=== PATIENT | male | born 1940 | race Caucasian/White ===

== ENCOUNTER → 2019-03-23 14:15 | Outpatient (BNVA) | payer MEDICARE, OTHER, SELFPAY | PROVIDERS: Family Provider Family Medicine; PCP Family Medicine; Visit Provider Urology | DX: R97.20 Elevated prostate specific antigen [PSA] (principal) | CPT/HCPCS: 84153 ==

== ENCOUNTER → 2019-03-30 08:05 | Outpatient (BNVA) | payer MEDICARE, OTHER, SELFPAY | PROVIDERS: Family Provider Family Medicine; PCP Family Medicine; Visit Provider Urology | DX: N20.9 Urinary calculus, unspecified (principal); N39.9 Disorder of urinary system, unspecified | CPT/HCPCS: 81001 ==

== ENCOUNTER 2019-04-15 07:37 | Day surgery (SDC) | payer MEDICARE, OTHER, SELFPAY ==
[2019-04-14 13:24] VITALS: BMI 24.3
[2019-04-15 08:36] VITALS: BP 130/91; PULSE 102; RESP 20; TEMP 36.7; O2SAT 96
[2019-04-15] MEDS: sodium chloride 0.9% 1,000 ML 30 ML (08:48)
--- NOTE | 2019-04-15 08:50 | ANES.PREANE2 ---
Pre-Anesthetic Assessment Pre-Anesthetic Assessment: Height/Weight: Height 1.75 m Weight 74.843 kg Temp Pulse Resp BP Pulse Ox 98.1 F 102 H 20 H 130/91 96 04/15/19 08:36 04/15/19 08:36 04/15/19 08:36 04/15/19 08:36 04/15/19 08:36 Proposed Procedure: Operation Date: 04/15/19 09:30 Proposed Procedures p Colonoscopy(Not Applicable) - Patricio Mobley MD Was Beta Kelly taken within 24 hours: Yes Last intake: Intake Last Liquid Date 04/14/19 Last Liquid Time 20:00 Last Intake: 20:00 Social: Social History: No alcohol and No tobacco Exam: Pre-Anes Outpt Exam: alert, oriented x 3, clear to auscultation bilaterally and regular rate & rhythm Airway: Submandibular: WNL Cervical ROM: WNL MP: 1 Dentition: False (upper implants lower) Pulmonary: Pulmonary: None reported CV/HEM: CV/HEM: HTN : : None reported Comments: hx [place] Hepatic: Hepatic: None reported GI: GI: None reported Metabolic: Metabolic: None reported Musc/skel: Musc/skel: RA Neuropsych: Neuropsych: None reported Anesthetic Plan: ASA status: 3 Anesthesia: Anesthesia Evaluation and MAC Risk of > 500 ml blood loss (7ml/kg in children): No PFSH Anesthesia PFSH: Medical History Diverticulosis Elevated PSA Chronically elevated PSA with normal feeling prostate. Elected conservative observation over biopsy due to age and perceived low risk. History of left inguinal hernia Rheumatoid arthritis Status post extracorporeal shock wave therapy Urolithiasis Surgical History History of hernia surgery History of oral surgery Status post surgery of both feet Family History Father , at age 58-[place] No problems noted. Mother Eye disorder Denies family history of Anesthesia complication Bleeding disorder Social History Smoking and tobacco status: former smoker Alcohol intake: never Marital status: Current occupational status: retired History of recent travel: No Data Anesthesia Cardiac Studies: No Data to Display
--- NOTE | 2019-04-15 09:03 | P.HPUD_ITS ---
Surgery/Procedure H&P Update DATE OF PROCEDURE: April 15, 2019 DATE H&P PERFORMED: 04/06/19 H&P UPDATE INFORMATION: I have reviewed H&P completed within last 30 days, I have examined patient prior to procedure, Changes to prior documentation as noted here (Patient reports change in bowel habits constipation alternating with diarrhea) and H&P is in [facility] EMR on date indicated CHANGES TO PREVIOUS DOCUMENTATION: Alternating bowel habits PREOP DIAGNOSIS: History of diarrhea and constipation PRIMARY INDICATION FOR PROCEDURE: The same PLANNED PROCEDURE: Operation Date: 04/15/19 09:30 Proposed Procedures p Colonoscopy(Not Applicable) - Patricio Mobley MD
[2019-04-15 10:00] VITALS: BP 111/68; PULSE 72; RESP 16; TEMP 36.6; O2SAT 97
--- NOTE | 2019-04-15 10:01 | ANE.PACU2 ---
 Inpatient post-anesthesia follow up: Airway intact: Yes Vital signs: Temperature 98 F Pulse Rate 72 Respiratory Rate 16 Blood Pressure 111/68 Pulse Oximetry 97 Oxygen Delivery Me thod Nasal Cannula Oxygen Flow Rate 3 Fraction of Inspir ed Oxygen Hydration adequate: Yes Nausea and vomiting: No Pain level: 1 Mental status: Baseline
[2019-04-15 10:19] VITALS: BP 135/79; PULSE 67; RESP 18; O2SAT 96
== END 2019-04-15 10:27 | disposition home or self-care (01) ==
PROVIDERS: Family Provider Family Medicine; PCP Family Medicine; Visit Provider Surgery
PROC: 0DJD8ZZ Inspection of Lower Intestinal Tract, Via Natural or Artificial Opening Endoscopic (ICD-10-PCS; CPT 45378; principal; 2019-04-15 09:30)
DX: R19.7 Diarrhea, unspecified (principal); K59.00 Constipation, unspecified; K57.30 Diverticulosis of large intestine without perforation or abscess without bleeding; I10 Essential (primary) hypertension; M06.9 Rheumatoid arthritis, unspecified; Z87.891 Personal history of nicotine dependence
CPT/HCPCS: 12345; 45378; 82274; 83630; 87177; 87209; 87493; 87505; J2704; J7030

== ENCOUNTER 2019-04-27 08:41 | Outpatient (CLI) | payer MEDICARE, OTHER, SELFPAY ==
[2019-04-27 09:20] VITALS: BP 128/68; PULSE 88; RESP 16; TEMP 36.6
[2019-04-27] MEDS: diphenhydrAMINE 50 mg/mL SDV 1mL 25 MG IVP (10:07)
[2019-04-27] MEDS: acetaminophen 325 mg Tablet 975 MG PO (10:07)
[2019-04-27] MEDS: rituximab 1,000 MG in sodium chloride 0.9% 250 ML, primary tubing onc 1 EACH 70 MG IV (10:07)
[2019-04-27 14:43] VITALS: BP 128/76; PULSE 60; RESP 16; TEMP 36.4; O2SAT 98
--- NOTE | 2019-04-27 14:48 | PC.NURSE ---
1430 Infusion complete. NS Flush 10ml. IV DC'd 24g cath intact. Pressure dressing applied. Appt made for a follow up appt.
== END 2019-04-27 08:42 | disposition home or self-care (01) ==
LOC: RHEOACUTE 08:42
PROVIDERS: Family Provider Family Medicine; PCP Family Medicine; Visit Provider Internal Medicine Rheumatology
DX: M05.79 Rheumatoid arthritis with rheumatoid factor of multiple sites without organ or systems involvement (principal); Z79.899 Other long term (current) drug therapy; Z11.59 Encounter for screening for other viral diseases; Z72.89 Other problems related to lifestyle
CPT/HCPCS: 36415; 80076; 82565; 85025; 86480; 86704; 86803; 87340; 96365; 96366; 96374; 96375; J1200; J2930; J7050; J9312

== ENCOUNTER → 2019-04-27 08:51 | Outpatient (BNVA) | payer MEDICARE, OTHER, SELFPAY | PROVIDERS: Family Provider Family Medicine; PCP Family Medicine | DX: M05.79 Rheumatoid arthritis with rheumatoid factor of multiple sites without organ or systems involvement (principal); Z79.899 Other long term (current) drug therapy | CPT/HCPCS: 85025 ==

== ENCOUNTER → 2019-07-23 10:42 | Outpatient (BNVA) | payer MEDICARE, OTHER, SELFPAY | PROVIDERS: Family Provider Family Medicine; PCP Family Medicine; Visit Provider Internal Medicine Rheumatology | DX: M05.9 Rheumatoid arthritis with rheumatoid factor, unspecified (principal); Z85.72 Personal history of non-Hodgkin lymphomas; Z79.899 Other long term (current) drug therapy; M16.0 Bilateral primary osteoarthritis of hip | CPT/HCPCS: 36415; 80076; 82565; 85025; 85651; 86140; 99214 ==

== ENCOUNTER → 2019-09-21 11:53 | Outpatient (BNVA) | payer MEDICARE, OTHER, SELFPAY | PROVIDERS: Family Provider Family Medicine; PCP Family Medicine; Visit Provider Urology | DX: R97.20 Elevated prostate specific antigen [PSA] (principal) | CPT/HCPCS: 84153 ==

== ENCOUNTER → 2019-09-28 08:55 | Outpatient (BNVA) | payer MEDICARE, OTHER, SELFPAY | PROVIDERS: Family Provider Family Medicine; PCP Family Medicine; Visit Provider Urology | DX: R97.20 Elevated prostate specific antigen [PSA] (principal); N20.9 Urinary calculus, unspecified | CPT/HCPCS: 81001 ==

== ENCOUNTER → 2019-10-29 10:54 | Outpatient (BNVA) | payer MEDICARE, OTHER, SELFPAY | PROVIDERS: Family Provider Family Medicine; PCP Family Medicine; Visit Provider Internal Medicine Rheumatology | DX: M05.9 Rheumatoid arthritis with rheumatoid factor, unspecified (principal); Z79.899 Other long term (current) drug therapy; M16.0 Bilateral primary osteoarthritis of hip; M54.2 Cervicalgia | CPT/HCPCS: 99213 ==

== ENCOUNTER 2020-03-09 17:30 | Emergency (ER) | payer MEDICARE, OTHER, SELFPAY ==
--- NOTE | 2020-03-09 18:12 | PC.NURSE ---
computer technical specialist at bedside
--- NOTE | 2020-03-09 18:25 | ECG_ITS ---
[facility] Test Date: 2020-03-09 Pat Name: Rafiq Crystal Department: Room: Gender: Male Banking Consultant: : 1940 Requested By: Tamanna Hoffman Order Number: [id number] MD: Chris Her M.D. Measurements Intervals [place] Rate: 68 P: 58 VT: 190 QRS: -14 QRSD: 104 T: 47 QT: 401 QTc: 429 Interpretive Statements SINUS RHYTHM INCOMPLETE RIGHT BUNDLE BRANCH BLOCK [90+ ms QRS DURATION, TERMINAL R IN V1/V2, 40+ ms S IN I/aVL/V4/V5/V6] Compared to ECG 02/27/2014 23:28:12 Incomplete right bundle-branch block now present Sinus tachycardia no longer present Left anterior fascicular block no longer present Electronically Signed On 03-09-2020 18:43:19 FRUIT INSPECTOR by Chris Her M.D. [id number]
--- NOTE | 2020-03-09 18:25 | XR_ITS ---
WS: [id number] Portable AP upright chest, 03/09/2020 Clinical Data: chest pain Comparison: Portable chest, 02/27/2014 Findings: No nodules, masses or effusions are seen. The heart is normal. The pulmonary vascularity is not increased. No pneumonia or pneumothorax is seen. The aortic arch and descending aorta are tortuo us. There is a slight dextroscoliosis of the lower thoracic spine. XR/XR chest 1V portable [id number] Impression: Atherosclerosis.
--- NOTE | 2020-03-09 18:26 | W.ED.ANXIETY ---
HPI - Anxiety General: Chief Complaint: Anxiety Stated Complaint: ANXIETY ISSUES Time Seen by Provider: 03/09/20 18:08 [facility] ED PFSH: Medical History Diverticulosis Elevated PSA Chronically elevated PSA with normal feeling prostate. Elected conservative observation over biopsy due to age and perceived low risk. Encounter for monitoring rituximab therapy High risk medication use History of left inguinal hernia Hx of lymphoma Immunization counseling Rheumatoid arthritis Seropositive rheumatoid arthritis Status post extracorporeal shock wave therapy Urolithiasis Surgical History History of hernia surgery History of oral surgery Status post surgery of both feet Family History Father , at age 58-[place] No problems noted. Mother Eye disorder Denies family history of Anesthesia complication Bleeding disorder Social History Smoking and tobacco status: former smoker Alcohol intake: never Marital status: Current occupational status: retired History of recent travel: No Discharge Plan Discharge Condition: Good Prescriptions: No Action triamterene-hydrochlorothiazid 37.5-25 mg capsule 1 cap PO DAILY@0700 RF: 0 metoprolol succinate 25 mg tablet extended release 24 hr 25 mg PO DAILY@0700 RF: 0 lorazepam 1 mg tablet 1 mg PO DAILY PRN (Reason: Anxiety) RF: 0 mirtazapine 15 mg tablet 15 mg PO DAILY@2200 RF: 0 tamsulosin 0.4 mg capsule 0.4 mg PO DAILY@0700 RF: 0 Rituxan 10 mg/mL concentrate 10 mg IVP BUSINESS OFFICE REPRESENTATIVE RF: 0 diclofenac sodium 1 % gel 2 gm TOPICAL QID PRN (Reason: rheumatoid arthritis) Qty: 100 RF: 1 quetiapine 25 mg tablet 25 mg PO BEDTIME@2200 RF: 0 Multivitamin 50 Plus Tablet 1 tab PO DAILY@0700 RF: 0 fluoxetine 60 mg tablet 60 mg PO DAILY@0700 RF: 0 calcium 1 tab PO DAILY@0700 RF: 0 Coding Level of Care Code ED Gambling Floor Supervisor for Emily Adair
--- NOTE | 2020-03-09 18:26 | W.ED.PSYCH ---
Documented by User: ALINE Caraballo 03/10/20 01:43 HPI - Psych General: Chief Complaint: Psychiatric Symptoms Stated Complaint: ANXIETY ISSUES Time Seen by Provider: 03/09/20 18:08 Source: patient and family Limitations: no limitations History of Present Illness: HPI Narrative: Patient is a very nice 79-year-old male with a history of anxiety, depression, rheumatoid arthritis, and lymphoma currently in remission here with his for complaints of anxiety and suicidal ideations. Patient tells me he has suffered from anxiety for many many years. He tells me he treats his anxiety with lorazepam 1mg TID. He states overtime he has has felt like this medication is no longer working. When asked specifically what symptoms he gets when he feels anxious, he tells me will have chest pains, pain between his shoulder blades, pain in his left shoulder and left arm, tremors and stomach pains. Denies exertional symptoms. Patient tells me he has no cardiac history. He is not currently having any symptoms. He does state the lorazapam helps alleviate his symptoms. He tells me his anxiety has gotten so bad that he now feels suicidal. He has one previous suicide attempt 6 years ago by overdose. He denies homicidal ideations or hallucinations. He reports no previous work up but he has stress test on file from 08/2018: CONCLUSION: 1. No significant EKG changes with the LexiScan infusion 2. No LexiScan induced chest pain or cardiac arrhythmia 3. Normal blood pressure and heart rate response 4. Sestamibi/sestamibi perfusion scan pending; see separate report. Small sized perfusion abnormality of moderate severity of mid to apical inferolateral larsen. 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 2. Overall left ventricular systolic function is normal without regional wall motion abnormalities. 3. The left ventricular ejection fraction is normal with a value of 68%. 4. No significant coronary ischemia based on this study. 5. Scan indicates low risk for cardiac events. MD complaint: suicidal ideation and feels depressed Onset (ago): day(s) History of same: Yes Associated psychiatric symptoms: depression and suicidal ideation Associated symptoms: Reports depression and suicidal ideation; Deny auditory hallucinations, visual hallucinations or homicidal ideation Treatments prior to arrival: none If self harm: admits thoughts of self harm Review of Systems Const: Denies: fever(s), chills, body aches, fatigue or malaise Card: Denies: chest pain, palpitations, irregular heart rhythm, edema, swelling of feet/ankles, lightheadedness, syncope, pre-syncope, dyspnea on exertion, orthopnea or leg pain with exertion Resp: Denies: dyspnea, productive cough, hemoptysis or chest congestion GI: Denies: abdominal pain, nausea, vomiting or diarrhea Skin/Breast: Denies: rash Neuro: Denies: headache(s) Psych: Reports: anxiety, depression and suicidal ideation; Denies: visual hallucinations, auditory hallucinations or homicidal ideation PFSH ED PFSH: Medical History (Updated 03/09/20 @ 20:00 by ALINE Caraballo) Diverticulosis Elevated PSA Chronically elevated PSA with normal feeling prostate. Elected conservative observation over biopsy due to age and perceived low risk. Encounter for monitoring rituximab therapy High risk medication use History of left inguinal hernia Hx of lymphoma Immunization counseling Rheumatoid arthritis Seropositive rheumatoid arthritis Status post extracorporeal shock wave therapy Urolithiasis Surgical History History of hernia surgery History of oral surgery Status post surgery of both feet Family History Father , at age 58-[place] No problems noted. Mother Eye disorder Denies family history of Anesthesia complication Bleeding disorder Social History Smoking and tobacco status: former smoker Alcohol intake: never Marital status: Current occupational status: retired History of recent travel: No Physical Exam Const: COMMON NORMALS: no acute distress, average body habitus, patient oriented x3, no limitations, healthy appearing, alert and well nourished GENERAL APPEARANCE: cooperative and well kempt ORIENTATION/CONSCIOUSNESS: Yes awake, Yes oriented to person, Yes oriented to place and Yes oriented to time HENMT: COMMON NORMALS: normocephalic and atraumatic HEAD & SCALP: normocephalic and atraumatic Resp: COMMON NORMALS: normal respiratory effort and clear to auscultation bilaterally AUSCULTATION: clear to auscultation bilaterally Cardio: COMMON NORMALS: regular rate and regular rhythm RATE: regular rate RHYTHM: regular rhythm Neuro: [place] COMA SCALE: document GCS findings Posey coma scale eye opening: Spontaneous [place] coma scale verbal response: Orientated [place] coma scale motor response: Obey commands Posey coma scale total score: 15 COMMON NORMALS: patient oriented x3, CN's II-XII intact bilaterally and gait normal SENSORIUM/ORIENTATION: Yes alert, Yes oriented to person, Yes oriented to place and Yes oriented to time Psych: COMMON NORMALS: mental status grossly normal, Normal thought process present, cooperative, normal affect, speech normal, activity/motor behavior normal, denies hallucinations and denies homicidal ideation APPEARANCE: Yes grossly normal and Yes well kempt ATTITUDE: Yes calm ACTIVITY/MOTOR BEHAVIOR: Yes appropriate eye contact and No psychomotor agitation SPEECH: Yes normal speech MOOD & AFFECT: Yes euthymic mood THOUGHT PROCESS: Normal thought process present THOUGHT CONTENT: Yes Normal thought content present ATTENTION/CONCENTRATION: Yes attention grossly intact and Yes concentration grossly intact MEMORY/COGNITION: Yes memory grossly intact and Yes cognition grossly intact INSIGHT: Good insight present (Psych) JUDGEMENT: Good judgement present (Psych) Skin: COMMON NORMALS: no rashes or lesions noted GENERAL SKIN EXAM: no rashes or lesions noted MDM - Psych MDM Narrative: Medical decision making narrative: Patient with negative stress test in 2019. He has had these symptoms intermittently for years now according to him. He is currently asymptomatic. He has negative initial and repeat troponins. EKGs showing no acute changes. Patient is stable to be transferred to [facility] facility at this time. Lab Data: Labs: Lab Results 03/09/20 03/09/20 03/09/20 Range/Units 18:35 18:35 18:35 WBC 6.9 (4.0-10.0) 10^3/ uL RBC 4.74 (4.1-5.3) 10^6/u L Hgb 14.2 (11.7-16.6) g/dL Hct 42.1 (42.0-52.0) % MCV 88.8 (80-94) fL MCH 30.0 (28.0-34.0) pg MCHC 33.7 (30.0-36.0) g/dL RDW 12.1 (12.1-15.1) % Plt Count 197 (130-400) 10^3/c mm MPV 9.2 (7.4-10.4) fL Neut % (Auto) 72.4 % Lymph % (Auto) 17.2 % [place] % (Auto) 8.1 % Eos % (Auto) 1.6 % Baso % (Auto) 0.4 % Neut # (Auto) 5.00 (1.8-7.7) 10^3/u L Lymph # (Auto) 1.2 (0.8-4.8) 10^3/u L [place] # (Auto) 0.6 (0.2-0.9) 10^3/u L Eos # (Auto) 0.1 (0.0-0.8) 10^3/u L Baso # (Auto) 0.0 (0.0-0.1) 10^3/u L Nucleated RBC % (a uto) 0 % Nucleated RBCs # 0.0 /100WBC Sodium 138 (136-145) mmol/L Potassium 4.0 (3.5-5.1) mmol/L Chloride 102 (98-107) mmol/L Carbon Dioxide 27 (22-29) mmol/L Anion Gap 13.0 (5-19) BUN 22 (8-23) mg/dL Creatinine 1.2 (0.7-1.2) mg/dL GFR Calculation Not Reportable Glucose 124 H (65-115) mg/dL Calculated Osmolal ity 291 (285-295) mOsm/k g Calcium 9.7 (8.5-10.5) mg/dL Total Bilirubin 0.3 (0.15-1.2) mg/dL AST 18 (0-40) U/L ALT 12 (0-41) U/L Alkaline Phosphata se 115 (40-130) IU/L Troponin T Baselin e 11 (0-15) ng/L Troponin T [address] [place] (0-15) ng/L Delta Troponin T (0-10) ABS# Total Protein 7.1 (6.6-8.7) g/dL Albumin 4.2 (3.5-5.2) g/dL Globulin 2.9 (1.3-4.6) g/dL TSH (0.27-4.20) uIU/ mL Free T4 (0.82-1.77) ng/d L Urine Color (Yellow) Urine Appearance (CLEAR) Urine pH (5-7) Ur Specific Gravit y (1.005-1.030) Urine Protein (Negative) Urine Glucose (UA) (Normal) Urine Ketones (Negative) Urine Blood (Negative) Urine Nitrate (Negative) Urine Bilirubin (Negative) Urine Urobilinogen (Negative) mg/dL Ur Leukocyte Evelyn ase (Negative) Salicylates < 0.3 L (3-10) mg/dL Urine Opiates Scre en (Negative) ng/mL Acetaminophen < 5.0 L (10-30) ug/mL Ur Barbiturates Sc reen (Negative) ng/mL Ur Phencyclidine S crn (Negative) ng/mL Ur Amphetamines Sc reen (Negative) ng/mL U Benzodiazepines Scrn (Negative) ng/mL Urine Cocaine Scre en (Negative) ng/mL U Marijuana (THC) Screen (Negative) ng/mL Ethyl Alcohol < 10 (0-10) mg/dL SARS-CoV-2 Ag (Rap id) (Negative) 03/09/20 03/09/20 03/09/20 Range/Units 19:23 19:25 20:23 WBC (4.0-10.0) 10^3/ uL RBC (4.1-5.3) 10^6/u L Hgb (11.7-16.6) g/dL Hct (42.0-52.0) % MCV (80-94) fL MCH (28.0-34.0) pg MCHC (30.0-36.0) g/dL RDW (12.1-15.1) % Plt Count (130-400) 10^3/c mm MPV (7.4-10.4) fL Neut % (Auto) % Lymph % (Auto) % [place] % (Auto) % Eos % (Auto) % Baso % (Auto) % Neut # (Auto) (1.8-7.7) 10^3/u L Lymph # (Auto) (0.8-4.8) 10^3/u L [place] # (Auto) (0.2-0.9) 10^3/u L Eos # (Auto) (0.0-0.8) 10^3/u L Baso # (Auto) (0.0-0.1) 10^3/u L Nucleated RBC % (a uto) % Nucleated RBCs # /100WBC Sodium (136-145) mmol/L Potassium (3.5-5.1) mmol/L Chloride (98-107) mmol/L Carbon Dioxide (22-29) mmol/L Anion Gap (5-19) BUN (8-23) mg/dL Creatinine (0.7-1.2) mg/dL GFR Calculation Glucose (65-115) mg/dL Calculated Osmolal ity (285-295) mOsm/k g Calcium (8.5-10.5) mg/dL Total Bilirubin (0.15-1.2) mg/dL AST (0-40) U/L ALT (0-41) U/L Alkaline Phosphata se (40-130) IU/L Troponin T Baselin e (0-15) ng/L Troponin T [address] [place] (0-15) ng/L Delta Troponin T (0-10) ABS# Total Protein (6.6-8.7) g/dL Albumin (3.5-5.2) g/dL Globulin (1.3-4.6) g/dL TSH (0.27-4.20) uIU/ mL Free T4 (0.82-1.77) ng/d L Urine Color Yellow (Yellow) Urine Appearance Clear (CLEAR) Urine pH 6.0 (5-7) Ur Specific Gravit y 1.015 (1.005-1.030) Urine Protein Neg (Negative) Urine Glucose (UA) Norm (Normal) Urine Ketones Negative (Negative) Urine Blood Neg (Negative) Urine Nitrate Negative (Negative) Urine Bilirubin Neg (Negative) Urine Urobilinogen Norm (Negative) mg/dL Ur Leukocyte Evelyn ase Negative (Negative) Salicylates (3-10) mg/dL Urine Opiates Scre en Negative (Negative) ng/mL Acetaminophen (10-30) ug/mL Ur Barbiturates Sc reen Negative (Negative) ng/mL Ur Phencyclidine S crn Negative (Negative) ng/mL Ur Amphetamines Sc reen Negative (Negative) ng/mL U Benzodiazepines Scrn Positive H (Negative) ng/mL Urine Cocaine Scre en Negative (Negative) ng/mL U Marijuana (THC) Screen Negative (Negative) ng/mL Ethyl Alcohol (0-10) mg/dL SARS-CoV-2 Ag (Rap id) Negative (Negative) 03/09/20 03/09/20 Range/Units 21:29 21:29 WBC (4.0-10.0) 10^3/ uL RBC (4.1-5.3) 10^6/u L Hgb (11.7-16.6) g/dL Hct (42.0-52.0) % MCV (80-94) fL MCH (28.0-34.0) pg MCHC (30.0-36.0) g/dL RDW (12.1-15.1) % Plt Count (130-400) 10^3/c mm MPV (7.4-10.4) fL Neut % (Auto) % Lymph % (Auto) % [place] % (Auto) % Eos % (Auto) % Baso % (Auto) % Neut # (Auto) (1.8-7.7) 10^3/u L Lymph # (Auto) (0.8-4.8) 10^3/u L [place] # (Auto) (0.2-0.9) 10^3/u L Eos # (Auto) (0.0-0.8) 10^3/u L Baso # (Auto) (0.0-0.1) 10^3/u L Nucleated RBC % (a uto) % Nucleated RBCs # /100WBC Sodium (136-145) mmol/L Potassium (3.5-5.1) mmol/L Chloride (98-107) mmol/L Carbon Dioxide (22-29) mmol/L Anion Gap (5-19) BUN (8-23) mg/dL Creatinine (0.7-1.2) mg/dL GFR Calculation Glucose (65-115) mg/dL Calculated Osmolal ity (285-295) mOsm/k g Calcium (8.5-10.5) mg/dL Total Bilirubin (0.15-1.2) mg/dL AST (0-40) U/L ALT (0-41) U/L Alkaline Phosphata se (40-130) IU/L Troponin T Baselin e (0-15) ng/L Troponin T [address] [place] 12.77 (0-15) ng/L Delta Troponin T 1.77 (0-10) ABS# Total Protein (6.6-8.7) g/dL Albumin (3.5-5.2) g/dL Globulin (1.3-4.6) g/dL TSH 1.95 (0.27-4.20) uIU/ mL Free T4 1.26 (0.82-1.77) ng/d L Urine Color (Yellow) Urine Appearance (CLEAR) Urine pH (5-7) Ur Specific Gravit y (1.005-1.030) Urine Protein (Negative) Urine Glucose (UA) (Normal) Urine Ketones (Negative) Urine Blood (Negative) Urine Nitrate (Negative) Urine Bilirubin (Negative) Urine Urobilinogen (Negative) mg/dL Ur Leukocyte Evelyn ase (Negative) Salicylates (3-10) mg/dL Urine Opiates Scre en (Negative) ng/mL Acetaminophen (10-30) ug/mL Ur Barbiturates Sc reen (Negative) ng/mL Ur Phencyclidine S crn (Negative) ng/mL Ur Amphetamines Sc reen (Negative) ng/mL U Benzodiazepines Scrn (Negative) ng/mL Urine Cocaine Scre en (Negative) ng/mL U Marijuana (THC) Screen (Negative) ng/mL Ethyl Alcohol (0-10) mg/dL SARS-CoV-2 Ag (Rap id) (Negative) Discharge Plan Discharge Patient Disposition: Xfer Other Clinical Impression: Suicidal ideation, Anxiety Condition: Stable Referrals: Ezio Lay Jr, MD [Primary Care Provider] - Coding Level of Care Code ED Light Bulb Replacer for Chg Fwd Exam Detailed Documented by User: Cherry Freed MD 03/10/20 05:12 HPI - Psych General: Chief Complaint: Psychiatric Symptoms Stated Complaint: ANXIETY ISSUES Time Seen by Provider: 03/09/20 18:08 [facility] ED PFSH: Medical History (Updated 03/09/20 @ 20:00 by ALINE Caraballo) Diverticulosis Elevated PSA Chronically elevated PSA with normal feeling prostate. Elected conservative observation over biopsy due to age and perceived low risk. Encounter for monitoring rituximab therapy High risk medication use History of left inguinal hernia Hx of lymphoma Immunization counseling Rheumatoid arthritis Seropositive rheumatoid arthritis Status post extracorporeal shock wave therapy Urolithiasis Surgical History History of hernia surgery History of oral surgery Status post surgery of both feet Family History Father , at age 58-[place] No problems noted. Mother Eye disorder Denies family history of Anesthesia complication Bleeding disorder Social History Smoking and tobacco status: former smoker Alcohol intake: never Marital status: Current occupational status: retired History of recent travel: No MDM - Psych MDM Narrative: Medical decision making narrative: Rafiq presents here with suicidal ideations with a plan to shoot himself with a gun. I saw patient as well and I agree with the midlevel's history and exam. I placed patient under a 96-hour hold. Will seek placement. Lab Data: Labs: Lab Results 03/09/20 03/09/20 03/09/20 Range/Units 18:35 18:35 18:35 WBC 6.9 (4.0-10.0) 10^3/ uL RBC 4.74 (4.1-5.3) 10^6/u L Hgb 14.2 (11.7-16.6) g/dL Hct 42.1 (42.0-52.0) % MCV 88.8 (80-94) fL MCH 30.0 (28.0-34.0) pg MCHC 33.7 (30.0-36.0) g/dL RDW 12.1 (12.1-15.1) % Plt Count 197 (130-400) 10^3/c mm MPV 9.2 (7.4-10.4) fL Neut % (Auto) 72.4 % Lymph % (Auto) 17.2 % [place] % (Auto) 8.1 % Eos % (Auto) 1.6 % Baso % (Auto) 0.4 % Neut # (Auto) 5.00 (1.8-7.7) 10^3/u L Lymph # (Auto) 1.2 (0.8-4.8) 10^3/u L [place] # (Auto) 0.6 (0.2-0.9) 10^3/u L Eos # (Auto) 0.1 (0.0-0.8) 10^3/u L Baso # (Auto) 0.0 (0.0-0.1) 10^3/u L Nucleated RBC % (a uto) 0 % Nucleated RBCs # 0.0 /100WBC Sodium 138 (136-145) mmol/L Potassium 4.0 (3.5-5.1) mmol/L Chloride 102 (98-107) mmol/L Carbon Dioxide 27 (22-29) mmol/L Anion Gap 13.0 (5-19) BUN 22 (8-23) mg/dL Creatinine 1.2 (0.7-1.2) mg/dL GFR Calculation Not Reportable Glucose 124 H (65-115) mg/dL Calculated Osmolal ity 291 (285-295) mOsm/k g Calcium 9.7 (8.5-10.5) mg/dL Total Bilirubin 0.3 (0.15-1.2) mg/dL AST 18 (0-40) U/L ALT 12 (0-41) U/L Alkaline Phosphata se 115 (40-130) IU/L Troponin T Baselin e 11 (0-15) ng/L Troponin T [address] [place] (0-15) ng/L Delta Troponin T (0-10) ABS# Total Protein 7.1 (6.6-8.7) g/dL Albumin 4.2 (3.5-5.2) g/dL Globulin 2.9 (1.3-4.6) g/dL TSH (0.27-4.20) uIU/ mL Free T4 (0.82-1.77) ng/d L Urine Color (Yellow) Urine Appearance (CLEAR) Urine pH (5-7) Ur Specific Gravit y (1.005-1.030) Urine Protein (Negative) Urine Glucose (UA) (Normal) Urine Ketones (Negative) Urine Blood (Negative) Urine Nitrate (Negative) Urine Bilirubin (Negative) Urine Urobilinogen (Negative) mg/dL Ur Leukocyte Evelyn ase (Negative) Salicylates < 0.3 L (3-10) mg/dL Urine Opiates Scre en (Negative) ng/mL Acetaminophen < 5.0 L (10-30) ug/mL Ur Barbiturates Sc reen (Negative) ng/mL Ur Phencyclidine S crn (Negative) ng/mL Ur Amphetamines Sc reen (Negative) ng/mL U Benzodiazepines Scrn (Negative) ng/mL Urine Cocaine Scre en (Negative) ng/mL U Marijuana (THC) Screen (Negative) ng/mL Ethyl Alcohol < 10 (0-10) mg/dL SARS-CoV-2 Ag (Rap id) (Negative) 03/09/20 03/09/20 03/09/20 Range/Units 19:23 19:25 20:23 WBC (4.0-10.0) 10^3/ uL RBC (4.1-5.3) 10^6/u L Hgb (11.7-16.6) g/dL Hct (42.0-52.0) % MCV (80-94) fL MCH (28.0-34.0) pg MCHC (30.0-36.0) g/dL RDW (12.1-15.1) % Plt Count (130-400) 10^3/c mm MPV (7.4-10.4) fL Neut % (Auto) % Lymph % (Auto) % [place] % (Auto) % Eos % (Auto) % Baso % (Auto) % Neut # (Auto) (1.8-7.7) 10^3/u L Lymph # (Auto) (0.8-4.8) 10^3/u L [place] # (Auto) (0.2-0.9) 10^3/u L Eos # (Auto) (0.0-0.8) 10^3/u L Baso # (Auto) (0.0-0.1) 10^3/u L Nucleated RBC % (a uto) % Nucleated RBCs # /100WBC Sodium (136-145) mmol/L Potassium (3.5-5.1) mmol/L Chloride (98-107) mmol/L Carbon Dioxide (22-29) mmol/L Anion Gap (5-19) BUN (8-23) mg/dL Creatinine (0.7-1.2) mg/dL GFR Calculation Glucose (65-115) mg/dL Calculated Osmolal ity (285-295) mOsm/k g Calcium (8.5-10.5) mg/dL Total Bilirubin (0.15-1.2) mg/dL AST (0-40) U/L ALT (0-41) U/L Alkaline Phosphata se (40-130) IU/L Troponin T Baselin e (0-15) ng/L Troponin T [address] [place] (0-15) ng/L Delta Troponin T (0-10) ABS# Total Protein (6.6-8.7) g/dL Albumin (3.5-5.2) g/dL Globulin (1.3-4.6) g/dL TSH (0.27-4.20) uIU/ mL Free T4 (0.82-1.77) ng/d L Urine Color Yellow (Yellow) Urine Appearance Clear (CLEAR) Urine pH 6.0 (5-7) Ur Specific Gravit y 1.015 (1.005-1.030) Urine Protein Neg (Negative) Urine Glucose (UA) Norm (Normal) Urine Ketones Negative (Negative) Urine Blood Neg (Negative) Urine Nitrate Negative (Negative) Urine Bilirubin Neg (Negative) Urine Urobilinogen Norm (Negative) mg/dL Ur Leukocyte Evelyn ase Negative (Negative) Salicylates (3-10) mg/dL Urine Opiates Scre en Negative (Negative) ng/mL Acetaminophen (10-30) ug/mL Ur Barbiturates Sc reen Negative (Negative) ng/mL Ur Phencyclidine S crn Negative (Negative) ng/mL Ur Amphetamines Sc reen Negative (Negative) ng/mL U Benzodiazepines Scrn Positive H (Negative) ng/mL Urine Cocaine Scre en Negative (Negative) ng/mL U Marijuana (THC) Screen Negative (Negative) ng/mL Ethyl Alcohol (0-10) mg/dL SARS-CoV-2 Ag (Rap id) Negative (Negative) 03/09/20 03/09/20 Range/Units 21:29 21:29 WBC (4.0-10.0) 10^3/ uL RBC (4.1-5.3) 10^6/u L Hgb (11.7-16.6) g/dL Hct (42.0-52.0) % MCV (80-94) fL MCH (28.0-34.0) pg MCHC (30.0-36.0) g/dL RDW (12.1-15.1) % Plt Count (130-400) 10^3/c mm MPV (7.4-10.4) fL Neut % (Auto) % Lymph % (Auto) % [place] % (Auto) % Eos % (Auto) % Baso % (Auto) % Neut # (Auto) (1.8-7.7) 10^3/u L Lymph # (Auto) (0.8-4.8) 10^3/u L [place] # (Auto) (0.2-0.9) 10^3/u L Eos # (Auto) (0.0-0.8) 10^3/u L Baso # (Auto) (0.0-0.1) 10^3/u L Nucleated RBC % (a uto) % Nucleated RBCs # /100WBC Sodium (136-145) mmol/L Potassium (3.5-5.1) mmol/L Chloride (98-107) mmol/L Carbon Dioxide (22-29) mmol/L Anion Gap (5-19) BUN (8-23) mg/dL Creatinine (0.7-1.2) mg/dL GFR Calculation Glucose (65-115) mg/dL Calculated Osmolal ity (285-295) mOsm/k g Calcium (8.5-10.5) mg/dL Total Bilirubin (0.15-1.2) mg/dL AST (0-40) U/L ALT (0-41) U/L Alkaline Phosphata se (40-130) IU/L Troponin T Baselin e (0-15) ng/L Troponin T [address] [place] 12.77 (0-15) ng/L Delta Troponin T 1.77 (0-10) ABS# Total Protein (6.6-8.7) g/dL Albumin (3.5-5.2) g/dL Globulin (1.3-4.6) g/dL TSH 1.95 (0.27-4.20) uIU/ mL Free T4 1.26 (0.82-1.77) ng/d L Urine Color (Yellow) Urine Appearance (CLEAR) Urine pH (5-7) Ur Specific Gravit y (1.005-1.030) Urine Protein (Negative) Urine Glucose (UA) (Normal) Urine Ketones (Negative) Urine Blood (Negative) Urine Nitrate (Negative) Urine Bilirubin (Negative) Urine Urobilinogen (Negative) mg/dL Ur Leukocyte Evelyn ase (Negative) Salicylates (3-10) mg/dL Urine Opiates Scre en (Negative) ng/mL Acetaminophen (10-30) ug/mL Ur Barbiturates Sc reen (Negative) ng/mL Ur Phencyclidine S crn (Negative) ng/mL Ur Amphetamines Sc reen (Negative) ng/mL U Benzodiazepines Scrn (Negative) ng/mL Urine Cocaine Scre en (Negative) ng/mL U Marijuana (THC) Screen (Negative) ng/mL Ethyl Alcohol (0-10) mg/dL SARS-CoV-2 Ag (Rap id) (Negative) Discharge Plan Discharge Patient Disposition: Xfer Other Clinical Impression: Suicidal ideation, Anxiety Condition: Stable Referrals: Ezio Lay Jr, MD [Primary Care Provider] - Coding Level of Care Code ED Light Bulb Replacer for Winifredg Fwd Exam Detailed
[2020-03-09 18:40] VITALS: RESP 18
--- NOTE | 2020-03-09 18:42 | PC.NURSE ---
EKG done at 1840 and shown to VITO MIRELES
[2020-03-09 18:48] VITALS: BMI 25.8
[2020-03-09 18:55] VITALS: BP 128/88; PULSE 78; RESP 18; TEMP 36.7; O2SAT 97
[2020-03-09 19:02] LABS: Basophils % 0.4 %; Eosinophils # 0.1 10^3/uL (0.0-0.8); Eosinophils % 1.6 %; Hematocrit 42.1 % (42.0-52.0); Hemoglobin 14.2 g/dL (11.7-16.6); Lymphocytes # 1.2 10^3/uL (0.8-4.8); Lymphocytes % 17.2 %; Mean Corpuscular HGB Conc 33.7 g/dL (30.0-36.0); Mean Corpuscular Volume 88.8 fL (80-94); Mean Platelet Volume 9.2 fL (7.4-10.4); Monocytes # 0.6 10^3/uL (0.2-0.9); Monocytes % 8.1 %; Neutrophils % 72.4 %; Nucleated Red Blood Cells % 0 %; Platelet Count 197 10^3/cmm (130-400); Red Blood Count 4.74 10^6/uL (4.1-5.3); Red Cell Distribution Width 12.1 % (12.1-15.1); White Blood Count 6.9 10^3/uL (4.0-10.0)
[2020-03-09 19:18] LABS: Alanine Aminotransferase 12 U/L (0-41); Albumin Level 4.2 g/dL (3.5-5.2); Alkaline Phosphatase 115 IU/L (40-130); Aspartate Amino Transferase 18 U/L (0-40); Blood Urea Nitrogen 22 mg/dL (8-23); Calcium 9.7 mg/dL (8.5-10.5); Carbon Dioxide 27 mmol/L (22-29); Chloride 102 mmol/L (98-107); Globulin 2.9 g/dL (1.3-4.6); Glucose 124 mg/dL (65-115); Osmolality Calculated 291 mOsm/kg (285-295); Sodium 138 mmol/L (136-145); Total Bilirubin 0.3 mg/dL (0.15-1.2); Total Protein 7.1 g/dL (6.6-8.7)
[2020-03-09 19:19] LABS: Acetaminophen < 5.0 ug/mL (10-30); Alcohol Level < 10 mg/dL (0-10); Salicylate < 0.3 mg/dL (3-10)
[2020-03-09 19:20] LABS: Troponin(5th) Baseline 11 ng/L (0-15)
[2020-03-09 20:08] LABS: Amphetamines Screen Urine Negative (Negative); Barbiturates Screen Urine Negative (Negative); Benzodiazepines Screen Urine Positive (Negative); Cocaine Screen Urine Negative (Negative); Opiate Screen Urine Negative (Negative); PCP Screen Urine Negative (Negative); THC Screen Urine Negative (Negative)
[2020-03-09 20:20] LABS: Add Urine Microscopic? NO
--- NOTE | 2020-03-09 20:25 | ECG_ITS ---
[facility] Test Date: 2020-03-09 Pat Name: Rafiq Crystal Department: Room: Gender: Male Broom Builder: : 1940 Requested By: Tamanna Hoffman Order Number: [id number] MD: Chris Her M.D. Measurements Intervals [place] Rate: 70 P: 56 GA: 164 QRS: -22 QRSD: 106 T: 49 QT: 417 QTc: 451 Interpretive Statements SINUS RHYTHM BORDERLINE LEFT AXIS DEVIATION [QRS AXIS < -20] INCOMPLETE RIGHT BUNDLE BRANCH BLOCK [90+ ms QRS DURATION, TERMINAL R IN V1/V2, 40+ ms S IN I/aVL/V4/V5/V6] Compared to ECG 03/09/2020 18:37:13 No significant changes Electronically Signed On 03-10-2020 11:28:02 CLOTH COVERED HELMET PULLER by Chris Her M.D. [id number]
--- NOTE | 2020-03-09 20:29 | PC.NURSE ---
EKG done at 2024 and shown to ER doctor
[2020-03-09 20:34] LABS: Bilirubin Urine Neg (Negative); Blood Urine Neg (Negative); Glucose Urine UA Norm (Normal); Ketones Urine Negative (Negative); Leukocyte Esterase Urine Negative (Negative); Nitrate Urine Negative (Negative); Protein Urine Neg (Negative); Specific Gravity, Urine 1.015 (1.005-1.030); Urine Appearance Clear (CLEAR); Urine Color Yellow (Yellow); Urobilinogen Urine Norm (Negative)
[2020-03-09 21:02] LABS: SARS Covid-2 Antigen Negative (Negative)
[2020-03-09 22:02] LABS: Troponin 5 2HR 12.77 ng/L (0-15); Troponin 5 2HR Delta 1.77 ABS# (0-10)
--- NOTE | 2020-03-09 22:13 | PC.NURSE ---
[facility] called and this denied patient for admit at this time due to patient c/o angina.
[2020-03-09] MEDS: hyDROXYzine 25 mg Capsule 50 MG PO (22:34)
--- NOTE | 2020-03-10 01:17 | PC.NURSE ---
Call to [facility] to confirm they received fax from this facility, Josee confirms they have received all paperwork and states she is waiting to hear from the ER physician and she will call to let us know if he accepts.
--- NOTE | 2020-03-10 03:27 | PC.NURSE ---
[facility] will not see this pt, so they can not accept ot. We can find another facility or continue boarding him until their ED physician will evaluate pt
[2020-03-10 04:39] LABS: Free T4 Free Thyroxine 1.26 ng/dL (0.82-1.77); Thyroid Stimulating Hormone 1.95 uIU/mL (0.27-4.20)
[2020-03-10 06:43] VITALS: BP 168/90; PULSE 77; RESP 18; O2SAT 98
--- NOTE | 2020-03-10 06:51 | PC.NURSE ---
Received report assumed care. No changes noted from report. Resting in bed. Sitter at bedside. Waiting to call report to Bell at 0730.
--- NOTE | 2020-03-10 07:13 | PC.NURSE ---
Breakfast served. Needing morning meds
[2020-03-10] MEDS: fluoxetine 20 mg Capsule 40 MG PO (07:57)
[2020-03-10] MEDS: metoprolol succinate ER (24 HR) 25 mg Tablet PO (07:58)
[2020-03-10] MEDS: pantoprazole DR 40 mg Tablet PO (07:58)
--- NOTE | 2020-03-10 08:17 | PC.NURSE ---
Ate a full breakfast eaten. Morning meds given.
--- NOTE | 2020-03-10 08:18 | PC.NURSE ---
Sitter at bedside 1:1
[2020-03-10] MEDS: hydroCHLOROthiazide 25 mg Tablet PO (08:44)
[2020-03-10] MEDS: quetiapine 25 mg Tablet PO (09:06)
[2020-03-10 09:10] VITALS: BP 157/95; PULSE 88; RESP 16; TEMP 37; O2SAT 96
[2020-03-10 14:22] LABS: Coronavirus Test Green County Not Detected
--- NOTE | 2020-03-11 12:04 | PC.NURSE ---
Patient called to be notified of COVID results but no answer at this time and unable to leave message at this time.
--- NOTE | 2020-03-11 17:18 | PC.NURSE ---
[facility] notified of patients COVID results at this time.
== END 2020-03-10 09:38 | disposition other institution (70) ==
PROVIDERS: Physician Assistant; Emergency Provider Emergency Medicine; PCP Family Medicine
DX: F41.9 Anxiety disorder, unspecified (principal); R45.851 Suicidal ideations; Z85.72 Personal history of non-Hodgkin lymphomas; Z87.891 Personal history of nicotine dependence; Z79.899 Other long term (current) drug therapy
CPT/HCPCS: 12345; 36415; 71045; 80053; 80306; 80307; 81003; 84439; 84443; 84484; 85025; 87426; 87635; 93005; 99284; 99285

== ENCOUNTER 2020-03-20 14:05 | Inpatient (IN) | payer MEDICARE, OTHER, SELFPAY ==
[2020-03-20 14:06] VITALS: BP 116/76; PULSE 67; RESP 14; TEMP 36.4; O2SAT 96; BMI 27.3
--- NOTE | 2020-03-20 14:11 | ECG_ITS ---
[facility] Test Date: 2020-03-20 Pat Name: Rafiq Crystal Department: Room: Gender: Male House Coordinator: : 1940 Requested By: Tiffany Schwartz Order Number: [id number] MD: Chris eHr M.D. Measurements Intervals [place] Rate: 67 P: 55 WI: 194 QRS: -36 QRSD: 102 T: 32 QT: 434 QTc: 461 Interpretive Statements SINUS RHYTHM LEFT AXIS DEVIATION [QRS AXIS < -30] INCOMPLETE RIGHT BUNDLE BRANCH BLOCK [90+ ms QRS DURATION, TERMINAL R IN V1/V2, 40+ ms S IN I/aVL/V4/V5/V6] Compared to ECG 03/09/2020 20:23:47 No significant changes Electronically Signed On 03-20-2020 16:57:28 SAWMILLING OPERATOR by Chris Her M.D. [email or web address]
--- NOTE | 2020-03-20 14:21 | W.ED.AMS ---
HPI - Altered Mental Status General: Chief Complaint: Altered Mental Status Stated Complaint: AMS WITH FALL; LETHARGY Time Seen by Provider: 03/20/20 14:07 Source: family and old records reviewed Mode of arrival: ambulatory History of Present Illness: HPI narrative: 79-year-old male brought in by EMS with complaints of lethargy, somnolence, generalized weakness over the last 2 days. His states that yesterday his medications were changed, his Seroquel dose was increased to 50 mg twice daily and 200 mg at night. He was drowsy during the day yesterday, but was able to wake up this morning ate breakfast, but then has been sleeping most of the rest of the day, very difficult to arouse, seems confused and just wants to sleep. He will wake up and converse briefly. He has been on benzos chronically for anxiety, and they are trying to wean him down off of the lorazepam. Lexapro was also added 2 days ago. No fever. No complaints of headache or neck pain. Today when the was trying to help him ambulate, they both ended up falling and he did hit his head against a cupboard. MD complaint: altered mental status and confusion Review of Systems General: Reports: ROS unobtainable due to mental status PFSH ED PFSH: Medical History (Updated 03/18/20 @ 00:00 by ) Diverticulosis Elevated PSA Chronically elevated PSA with normal feeling prostate. Elected conservative observation over biopsy due to age and perceived low risk. Encounter for monitoring rituximab therapy High risk medication use History of left inguinal hernia Hx of lymphoma Immunization counseling Rheumatoid arthritis Seropositive rheumatoid arthritis Status post extracorporeal shock wave therapy Urolithiasis Surgical History History of hernia surgery History of oral surgery Status post surgery of both feet Family History Father , at age 58-[place] No problems noted. Mother Eye disorder Denies family history of Anesthesia complication Bleeding disorder Social History Smoking and tobacco status: former smoker Alcohol intake: never Marital status: Current occupational status: retired History of recent travel: No Physical Exam Const: COMMON NORMALS: average body habitus EXAM LIMITATIONS: altered mental status GENERAL APPEARANCE: well developed and lethargic ORIENTATION/CONSCIOUSNESS: Yes oriented to person, Yes confused, Yes patient obtunded and Yes lethargic; not oriented to time HENMT: COMMON NORMALS: normocephalic and atraumatic HEAD & SCALP: normocephalic, atraumatic and abrasion (Left scalp, scabbed. No active bleeding) FACE & SINUS: normal facial exam and face symmetric Eye: COMMON NORMALS: Equal, round and reactive pupils present, EOMs intact bilaterally, conjunctivae normal and no scleral icterus CONJUNCTIVA: Yes conjunctivae normal PUPIL: Yes Equal, round and reactive pupils present Neck/C-Spine: COMMON NORMALS: negative for no meningeal signs Lymph: LYMPHATIC: no lymphadenopathy noted and no lymphedema noted Chest: COMMONS NORMALS: normal inspection of the chest and normal palpation of entire chest wall Resp: COMMON NORMALS: normal respiratory effort, No retractions and No use of accessory muscles EFFORT & INSPECTION: No tachypneic and No respiratory distress Cardio: COMMON NORMALS: regular rate, regular rhythm, S1 normal heart sound present and S2 normal heart sound present RATE: regular rate RHYTHM: regular rhythm HEART SOUNDS: S1 normal heart sound present and S2 normal heart sound present GI: COMMON NORMALS: Normal to inspection, nondistended, normoactive bowel sounds present, Soft to palpation, non-tender, No hepatosplenomegaly present and no masses INSPECTION: Yes normal to inspection and Yes abdominal wall ecchymosis PALPATION: Yes Soft to palpation, No Tenderness to palpation present (GI), No Guarding due to palpation present (GI), No Rigid due to palpation and Yes No hepatosplenomegaly present Neuro: COMMON NORMALS: moves all extremities and no focal motor deficits SENSORIUM/ORIENTATION: Yes oriented to person, No oriented to time, Yes lethargic, Yes somnolent and Yes stuporous MENINGEAL SIGNS: No no meningeal signs and No nuccal rigidity CRANIAL NERVES: Yes pupillary reactivity/size GAIT: Yes Unable to assess gait MOTOR EXAM: no tremor noted, no asterixis and Motor fasciculations not present Skin: COMMON NORMALS: no rashes or lesions noted, no wounds, turgor normal, no jaundice, no petechiae and no mottling GENERAL SKIN EXAM: no rashes or lesions noted and turgor normal Course Vital Signs: Vital signs: Vital Signs Temperature 97.5 F L 03/20/20 14:06 Pulse Rate 59 L 03/20/20 19:53 Respiratory Rate 16 03/20/20 19:53 Blood Pressure 129/75 03/20/20 19:53 Pulse Oximetry 96 03/20/20 19:53 MDM - Altered Mental Status MDM Narrative: Medical decision making narrative: 79-year-old male with increased drowsiness, somnolence, confusion over the past 2 days. Onset of symptoms coincides with the increase of his Seroquel dose. EKG does not show any acute abnormalities. No significant changes compared to previous. CT head negative for any acute abnormalities. CBC and chemistry unremarkable. Urinalysis clear. Tox screen positive for benzos only. Even after being observed for 4+ hours in the ED, he was still very drowsy and unsafe to discharge home. Patient was signed out to Dr. Lovett who will await final test results and call hospitalist to request obs admissin. Medical Records: Attestation: I reviewed the patient's medical records. Lab Data: Attestation: I reviewed the patient's lab results. Labs: Lab Results 03/20/20 03/20/20 03/20/20 Range/Units 14:30 14:30 18:12 WBC 6.4 (4.0-10.0) 10^3/ uL RBC 4.30 (4.1-5.3) 10^6/u L Hgb 12.8 (11.7-16.6) g/dL Hct 39.2 L (42.0-52.0) % MCV 91.2 (80-94) fL MCH 29.8 (28.0-34.0) pg MCHC 32.7 (30.0-36.0) g/dL RDW 12.3 (12.1-15.1) % Plt Count 167 (130-400) 10^3/c mm MPV 9.2 (7.4-10.4) fL Neut % (Auto) 76.2 % Lymph % (Auto) 15.0 % [place] % (Auto) 5.6 % Eos % (Auto) 2.5 % Baso % (Auto) 0.5 % Neut # (Auto) 4.87 (1.8-7.7) 10^3/u L Lymph # (Auto) 1.0 (0.8-4.8) 10^3/u L [place] # (Auto) 0.4 (0.2-0.9) 10^3/u L Eos # (Auto) 0.2 (0.0-0.8) 10^3/u L Baso # (Auto) 0.0 (0.0-0.1) 10^3/u L Nucleated RBC % (a uto) 0 % Nucleated RBCs # 0.0 /100WBC Sodium 138 (136-145) mmol/L Potassium 4.2 (3.5-5.1) mmol/L Chloride 100 (98-107) mmol/L Carbon Dioxide 31 H (22-29) mmol/L Anion Gap 11.2 (5-19) BUN 23 (8-23) mg/dL Creatinine 1.1 (0.7-1.2) mg/dL GFR Calculation Not Reportable Glucose 105 (65-115) mg/dL Calculated Osmolal ity 290 (285-295) mOsm/k g Calcium 9.1 (8.5-10.5) mg/dL Magnesium 2.0 (1.7-2.3) mg/dL Total Bilirubin 0.3 (0.15-1.2) mg/dL AST 17 (0-40) U/L ALT 10 (0-41) U/L Alkaline Phosphata se 100 (40-130) IU/L Total Protein 6.7 (6.6-8.7) g/dL Albumin 3.8 (3.5-5.2) g/dL Globulin 2.9 (1.3-4.6) g/dL Urine Color (Yellow) Urine Appearance (CLEAR) Urine pH (5-7) Ur Specific Gravit y (1.005-1.030) Urine Protein (Negative) Urine Glucose (UA) (Normal) Urine Ketones (Negative) Urine Blood (Negative) Urine Nitrate (Negative) Urine Bilirubin (Negative) Urine Urobilinogen (Negative) mg/dL Ur Leukocyte Evelyn ase (Negative) Urine RBC (0-2) /hpf Urine WBC (0-5) /hpf Ur Squamous Epith Cells (0-5) /hpf Amorphous Sediment /hpf Urine Bacteria (NONE) /hpf Urine Opiates Scre en Negative (Negative) ng/mL Ur Barbiturates Sc reen Negative (Negative) ng/mL Ur Phencyclidine S crn Negative (Negative) ng/mL Ur Amphetamines Sc reen Negative (Negative) ng/mL U Benzodiazepines Scrn Positive H (Negative) ng/mL Urine Cocaine Scre en Negative (Negative) ng/mL U Marijuana (THC) Screen Negative (Negative) ng/mL 03/20/20 Range/Units 18:12 WBC (4.0-10.0) 10^3/ uL RBC (4.1-5.3) 10^6/u L Hgb (11.7-16.6) g/dL Hct (42.0-52.0) % MCV (80-94) fL MCH (28.0-34.0) pg MCHC (30.0-36.0) g/dL RDW (12.1-15.1) % Plt Count (130-400) 10^3/c mm MPV (7.4-10.4) fL Neut % (Auto) % Lymph % (Auto) % [place] % (Auto) % Eos % (Auto) % Baso % (Auto) % Neut # (Auto) (1.8-7.7) 10^3/u L Lymph # (Auto) (0.8-4.8) 10^3/u L [place] # (Auto) (0.2-0.9) 10^3/u L Eos # (Auto) (0.0-0.8) 10^3/u L Baso # (Auto) (0.0-0.1) 10^3/u L Nucleated RBC % (a uto) % Nucleated RBCs # /100WBC Sodium (136-145) mmol/L Potassium (3.5-5.1) mmol/L Chloride (98-107) mmol/L Carbon Dioxide (22-29) mmol/L Anion Gap (5-19) BUN (8-23) mg/dL Creatinine (0.7-1.2) mg/dL GFR Calculation Glucose (65-115) mg/dL Calculated Osmolal ity (285-295) mOsm/k g Calcium (8.5-10.5) mg/dL Magnesium (1.7-2.3) mg/dL Total Bilirubin (0.15-1.2) mg/dL AST (0-40) U/L ALT (0-41) U/L Alkaline Phosphata se (40-130) IU/L Total Protein (6.6-8.7) g/dL Albumin (3.5-5.2) g/dL Globulin (1.3-4.6) g/dL Urine Color Yellow (Yellow) Urine Appearance Clear (CLEAR) Urine pH 6.5 (5-7) Ur Specific Gravit y 1.005 (1.005-1.030) Urine Protein Neg (Negative) Urine Glucose (UA) Norm (Normal) Urine Ketones Negative (Negative) Urine Blood Neg (Negative) Urine Nitrate Negative (Negative) Urine Bilirubin Neg (Negative) Urine Urobilinogen Norm (Negative) mg/dL Ur Leukocyte Evelyn ase Negative (Negative) Urine RBC 0-4 H (0-2) /hpf Urine WBC 0-4 H (0-5) /hpf Ur Squamous Epith Cells 0-4 H (0-5) /hpf Amorphous Sediment Trace /hpf Urine Bacteria Trace (NONE) /hpf Urine Opiates Scre en (Negative) ng/mL Ur Barbiturates Sc reen (Negative) ng/mL Ur Phencyclidine S crn (Negative) ng/mL Ur Amphetamines Sc reen (Negative) ng/mL U Benzodiazepines Scrn (Negative) ng/mL Urine Cocaine Scre en (Negative) ng/mL U Marijuana (THC) Screen (Negative) ng/mL EKG Data^: EKG 1: Attestation: I personally reviewed and interpreted this EKG as follows: EKG interpretation date: 03/20/20 EKG interpretation time: 14:30 Prior EKG tracings: available for review Interpretation: Normal sinus rhythm with a rate of 67, left axis deviation, MD 194, QRS 102, QTc 450 incomplete right bundle branch block. No ST segment elevation or depression. No significant changes when compared with EKG dated 03/09/2020 Discharge Plan Discharge Prescriptions: No Action triamterene-hydrochlorothiazid 37.5-25 mg capsule 1 cap PO DAILY@0700 RF: 0 metoprolol succinate 25 mg tablet extended release 24 hr 25 mg PO DAILY@0700 RF: 0 lorazepam 1 mg tablet 0.5 mg PO TID PRN (Reason: Anxiety) RF: 0 tamsulosin 0.4 mg capsule 0.4 mg PO DAILY@2100 RF: 0 Rituxan 10 mg/mL concentrate 10 mg IVP GLASS SCULLION RF: 0 diclofenac sodium 1 % gel 2 gm TOPICAL QID PRN (Reason: rheumatoid arthritis) Qty: 100 RF: 1 calcium 500 mg Tablet 500 mg PO DAILY@0700 RF: 0 Multivitamin 50 Plus Tablet 1 tab PO DAILY@0700 RF: 0 quetiapine 200 mg tablet 200 mg PO BEDTIME@2100 RF: 0 escitalopram oxalate 10 mg tablet 10 mg PO DAILY@0700 RF: 0 quetiapine 50 mg tablet 50 mg PO DAILY@0700 RF: 0 senna-docusate sodium Capsule 2 cap PO DAILY RF: 0 Coding Level of Care Code ED [place] for Chg Fwd Exam Expanded Problem Focused
[2020-03-20 14:36] VITALS: BP 135/78; PULSE 64; RESP 14; O2SAT 96
[2020-03-20 14:40] LABS: Basophils % 0.5 %; Eosinophils # 0.2 10^3/uL (0.0-0.8); Eosinophils % 2.5 %; Hematocrit 39.2 % (42.0-52.0); Hemoglobin 12.8 g/dL (11.7-16.6); Mean Corpuscular HGB Conc 32.7 g/dL (30.0-36.0); Mean Corpuscular Hemoglobin 29.8 pg (28.0-34.0); Mean Corpuscular Volume 91.2 fL (80-94); Mean Platelet Volume 9.2 fL (7.4-10.4); Monocytes # 0.4 10^3/uL (0.2-0.9); Monocytes % 5.6 %; Neutrophils # 4.87 10^3/uL (1.8-7.7); Neutrophils % 76.2 %; Nucleated Red Blood Cells % 0 %; Platelet Count 167 10^3/cmm (130-400); Red Cell Distribution Width 12.3 % (12.1-15.1); White Blood Count 6.4 10^3/uL (4.0-10.0)
[2020-03-20 14:59] LABS: Alanine Aminotransferase 10 U/L (0-41); Albumin Level 3.8 g/dL (3.5-5.2); Alkaline Phosphatase 100 IU/L (40-130); Aspartate Amino Transferase 17 U/L (0-40); Blood Urea Nitrogen 23 mg/dL (8-23); Calcium 9.1 mg/dL (8.5-10.5); Carbon Dioxide 31 mmol/L (22-29); Chloride 100 mmol/L (98-107); Globulin 2.9 g/dL (1.3-4.6); Glucose 105 mg/dL (65-115); Osmolality Calculated 290 mOsm/kg (285-295); Sodium 138 mmol/L (136-145); Total Bilirubin 0.3 mg/dL (0.15-1.2); Total Protein 6.7 g/dL (6.6-8.7)
[2020-03-20 15:07] LABS: Anion Gap 11.2 (5-19)
[2020-03-20 15:08] LABS: Potassium 4.2 mmol/L (3.5-5.1)
[2020-03-20 18:38] LABS: Amphetamines Screen Urine Negative (Negative); Barbiturates Screen Urine Negative (Negative); Benzodiazepines Screen Urine Positive (Negative); Cocaine Screen Urine Negative (Negative); Opiate Screen Urine Negative (Negative); PCP Screen Urine Negative (Negative); THC Screen Urine Negative (Negative)
--- NOTE | 2020-03-20 18:46 | CTR_ITS ---
PROCEDURE INFORMATION: Exam: CT Head Without Contrast Exam date and time: 03/20/2020 6:55 PM Age: 79 years old Clinical indication: Altered mental status/memory loss and malaise or fatigue; Confusion or disorientation; Patient HX: Ams/lethargy recent med change TECHNIQUE: Imaging protocol: Computed tomography of the head without contrast. Radiation optimization: All CT scans at this facility use at least one of these dose optimization techniques: automated exposure control; mA and/or kV adjustment per patient size (includes targeted exams where dose is matched to clinical indication); or iterative reconstruction. COMPARISON: No relevant prior studies available. RADIATION DOSE METRICS: Total DLP (mGy-cm): 906.81 FINDINGS: Brain: Moderate white matter disease and volume loss are identified. There is no acute infarct or edema. No hemorrhage. Cerebral ventricles: No ventriculomegaly. Bones/joints: Unremarkable. No acute fracture. Paranasal sinuses: Visualized sinuses are unremarkable. No fluid levels. Mastoid air cells: Visualized mastoid air cells are well aerated. Soft tissues: Unremarkable. CT/CT head wo con* [id number] IMPRESSION: There are no acute concerning abnormalities. Radiation Dose CTDIVOL = (mGy): DLP = 906.81 (mGy-cm)
[2020-03-20 19:53] VITALS: BP 129/75; PULSE 59; RESP 16; O2SAT 96
[2020-03-20 19:57] LABS: Urine Appearance Clear (CLEAR); Urine Color Yellow (Yellow)
[2020-03-20 19:58] LABS: Bilirubin Urine Neg (Negative); Blood Urine Neg (Negative); Glucose Urine UA Norm (Normal); Ketones Urine Negative (Negative); Leukocyte Esterase Urine Negative (Negative); Nitrate Urine Negative (Negative); Protein Urine Neg (Negative); Specific Gravity, Urine 1.005 (1.005-1.030); Urobilinogen Urine Norm (Negative); pH Urine 6.5 (5-7)
--- NOTE | 2020-03-20 20:07 | P.HP_ITS ---
Providers/Chief Complaint Primary Care Provider: Ezio Lay Jr, MD Chief Complaint: AMS WITH FALL; LETHARGY History of Present Illness Rafiq Crystal is a 79 year old male who was brought in by his spouse because of extreme lethargy and fatigue. is stating that he was seen at [facility] on Saturday for similar complaint his anxiolytics were thought to be the etiology for his weakness and fatigue he was not diagnosed to have any stroke. He was discharged with instructions to avoid benzodiazepines however Seroquel was added which was 200 mg for the nighttime. On Saturday he took all these medications and on Saturday he was feeling very lethargic and tired was sleeping all day had no energy to get up from the bed. When tried to take him to the bathroom they both fell on the floor. Hence he was brought to the hospital for further evaluation. At home no fever vomiting diarrhea was noticed. No seizure-like activities syncope witnessed. Patient did not complain of any chest pain recent headache. He has chronic neck pain from rheumatoid arthritis. Diagnostics in the ER revealed dehydration, his anxiolytics and antipsychotics were discontinued, drug screen revealed positive benzodiazepines. is stating that he took Seroquel 50 mg twice a day and 200 mg at night. NIH scale 0 At the time my evaluation patient was able to follow verbal commands able to tell me his name date of , answer my questions appropriately he was able to sit up in bed hold his legs in the air for 5 seconds no drift vision change or slurred speech noticed he was extremely dry with facial flushing, CT head unremarkable chest x-ray normal EKG showing sinus rhythm, UA unremarkable Review of Systems Const: Reports: fatigue and malaise; Denies: fever(s) or chills Eyes: Denies: change in vision ENMT: Denies: throat pain Card: Denies: chest pain Resp: Denies: dyspnea GI: Denies: abdominal pain : Denies: flank pain Musc: Reports: neck pain Skin/Breast: Reports: dry skin Neuro: Denies: headache(s) Psych: Denies: anxiety Endo: Denies: polyuria Donny/Lymph: Denies: easy bruising All/Imm: Denies: urticaria Medications/Allergies Home Medications Medication Instructions Recorded Confirmed Last Taken Type lorazepam 1 mg tablet 0.5 mg PO TID PRN 03/30/19 03/20/20 03/20/20 History metoprolol succinate 25 mg 25 mg PO DAILY@69903/30/19 03/20/20 03/20/20 History tablet,extended release 24 hr 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 03/30/19 03/20/20 04/14/19 History concentrate,intravenous tamsulosin 0.4 mg capsule 0.4 mg PO DAILY@209903/30/19 03/20/20 03/19/20 History triamterene 37.5 1 cap PO DAILY@69903/30/19 03/20/20 03/20/20 History mg-hydrochlorothiazide 25 mg capsule diclofenac sodium 1 % topical gel 2 gm TOPICAL QID PRN #100 gm 07/23/19 03/20/20 Unknown Rx calcium 500 mg PO DAILY@69903/09/20 03/20/20 03/20/20 History qxnfqeqnufeu-oaxzpnme-dozuwg 1 tab PO DAILY@69903/09/20 03/20/20 03/20/20 History [Multivitamin 50 Plus] escitalopram oxalate 10 mg PO DAILY@69903/20/20 03/20/20 03/20/20 History quetiapine 50 mg PO DAILY@69903/20/20 03/20/20 03/20/20 History quetiapine 200 mg PO BEDTIME@209903/20/20 03/20/20 03/19/20 History senna-docusate sodium 2 cap PO DAILY 03/20/20 03/20/20 03/20/20 History Allergies Allergy/AdvReac Type Severity Reaction Status Date / Time No Known Allergies Allergy Verified 09/28/19 08:50 PFSH Acute PFSH: Medical History (Updated 03/20/20 @ 21:34 by Brandon Cohen MD) Diverticulosis Elevated PSA Chronically elevated PSA with normal feeling prostate. Elected conservative observation over biopsy due to age and perceived low risk. Encounter for monitoring rituximab therapy High risk medication use History of left inguinal hernia Hx of lymphoma Immunization counseling Lymphoma pt said due to enbrel..tx at [facility] Rheumatoid arthritis Seropositive rheumatoid arthritis Status post extracorporeal shock wave therapy Urolithiasis Surgical History History of hernia surgery History of oral surgery Status post surgery of both feet Family History Father , at age 58-[place] No problems noted. Mother Eye disorder Denies family history of Anesthesia complication Bleeding disorder Social History Smoking and tobacco status: former smoker Alcohol intake: never Marital status: Current occupational status: retired History of recent travel: No Vitals/I&O/Wt Last Vital Signs Temp 97.5 F L 03/20/20 14:06 Pulse 59 L 03/20/20 19:53 Resp 16 03/20/20 19:53 BP 129/75 03/20/20 19:53 Pulse Ox 96 03/20/20 19:53 Weight last 48 hrs Weight 81.647 kg Physical Exam Narrative: EXAM NARRATIVE: Patient was laying comfortably in his bed when I entered the room however he responded to my verbal commands he told me his name date of and follow my verbal commands accurately and answer my questions appropriately no slurred speech noticed He was able to sit up in bed with assistance however was able to hold his weight without any assistance afterwards He could lift his legs in the ER for 5 seconds no motor drift or deficit noted no vision changes, he has mild ptosis of right eyelid otherwise I do not see any pupillary asymmetry No acute respiratory distress saturating well on room air Buccal mucous membranes extremely dry, dry tongue S1, S2 sinus rhythm no murmur appreciated No acute respiratory distress Abdomen soft nontender bowel sounds present Lower extremity no edema gangrene ulcer Patient does have somnolence but able to follow my commands No joint swelling noted No skin cellulitis gangrene or ulcer No signs of meningitis, NIH is 0 Data : 03/20/20 14:30 03/20/20 14:30 A&P Assessment and plan (1) Altered mental status: No signs of stroke or meningitis Patient has chronic neck pain secondary to rheumatoid arthritis Patient is afebrile no signs of sepsis Clinically does look dehydrated I do believe his mentation changes secondary to sedation due to Seroquel and use of benzodiazepine Drug screen positive for benzodiazepine, I will hold his Seroquel and benzodiazepine Hydrate him overnight and discontinue fluids in the morning UA unremarkable, chest x-ray CT head unremarkable, EKG showing a sinus bradycardia however hemodynamically stable Status: Acute (2) Fatigue: will hydrate him overnight and hold antipsychotics, check B12 and TSH level Status: Acute (3) Polypharmacy: Hold benzodiazepines Seroquel I am also holding metoprolol succinate because of sinus bradycardia Status: Acute Additional A&P Information BPH: Continue tamsulosin Hypertension: Hold hydrochlorothiazide triamterene combination for now Goals of care: Full code Attestations Medical Necessity Statement*: Anticipating discharge in less than 48 hours ove rnight need IV fluid hydration and closer monitoring because of sedation due to benzodiazepines and Seroquel, sinus bradycardia noted however hemodynamically stable Time Spent in Patient Care: (>than 50% of time spent in counselling and/or direct pt care on unit) . 50mins Coding Level of Care Code Acute Tobacco Conditioner for Emily Adair Diagnoses Altered mental status R41.82 Fatigue R53.83 Polypharmacy Z79.899
[2020-03-20 20:15] LABS: Add Urine Culture? No; Amorphous Sediment Urine TRACE /hpf; Bacteria Urine TRACE /hpf; RBC Urine 0-4 /hpf (0-2); Squamous Epithelial Cell Urine 0-4 /hpf (0-5); WBC Urine 0-4 /hpf (0-5)
[2020-03-20 21:28] VITALS: BP 132/85; PULSE 60; RESP 17; O2SAT 97
--- NOTE | 2020-03-20 21:55 | PC.NURSE ---
report called to Roderick HICKS at [phone]
[2020-03-20 21:56] VITALS: BP 131/76; PULSE 59; RESP 16; O2SAT 98
[2020-03-20 22:34] VITALS: BP 121/57; PULSE 61; RESP 17; TEMP 36.6; O2SAT 95
[2020-03-20] MEDS: dextrose 5%-sod chloride 0.45% 1,000 ML 30 ML IV (23:16)
[2020-03-20 23:32] LABS: Basophils # 0.1 10^3/uL (0.0-0.1); Basophils % 0.7 %; Eosinophils # 0.2 10^3/uL (0.0-0.8); Hematocrit 38.7 % (42.0-52.0); Hemoglobin 12.9 g/dL (11.7-16.6); Lymphocytes # 1.4 10^3/uL (0.8-4.8); Lymphocytes % 19.2 %; Mean Corpuscular HGB Conc 33.3 g/dL (30.0-36.0); Mean Corpuscular Hemoglobin 30.2 pg (28.0-34.0); Mean Corpuscular Volume 90.6 fL (80-94); Mean Platelet Volume 8.8 fL (7.4-10.4); Monocytes # 0.6 10^3/uL (0.2-0.9); Monocytes % 8.2 %; Neutrophils # 5.06 10^3/uL (1.8-7.7); Neutrophils % 68.8 %; Nucleated Red Blood Cells % 0 %; Platelet Count 156 10^3/cmm (130-400); Red Blood Count 4.27 10^6/uL (4.1-5.3); Red Cell Distribution Width 12.6 % (12.1-15.1); White Blood Count 7.4 10^3/uL (4.0-10.0)
[2020-03-21] LABS: Ammonia 22 umol/L (16-60)
[2020-03-21 00:10] LABS: C Reactive Protein 1.7 mg/L (0.0-4.9); Thyroid Stimulating Hormone 1.31 uIU/mL (0.27-4.20)
[2020-03-21 01:34] LABS: Vitamin B12 723 pg/mL (232-1245)
[2020-03-21 01:50] LABS: Erythrocyte Sedimentation Rate 21 mm/hr (0-10)
[2020-03-21 04:30] VITALS: BP 121/78; PULSE 76; RESP 17; TEMP 36.6; O2SAT 100
[2020-03-21] MEDS: escitalopram 10 mg Tablet PO (06:29)
[2020-03-21 07:36] VITALS: BP 138/76; PULSE 61; RESP 18; TEMP 36.3; O2SAT 97
[2020-03-21] MEDS: sennosides-docusate Tablet 2 TAB PO (08:31)
[2020-03-21 09:49] LABS: Phosphorus 3.2 mg/dL (2.5-4.5)
--- NOTE | 2020-03-21 09:57 | PC.CHAP ---
Pastoral Care Encounter/Spiritual Assessment Type of Contact [] Declined fur liner visit [] Patient/Family/Request visit [] Outpatient visit [] Follow-up visit [] Physician referral [] Code/Alert [x] Routine visit [] Staff referral [] Actively dying [] Patient sleeping [] Family support [] [x] Out of room [] Palliative care [] [] Receiving care in room [] Pre-surgical visit [] Trauma [] Long length of stay [] ICU visit [] Other: Relational/Emotional Strength [] Patient feels connected with others/family/visitors/staff [] Distress [] Loneliness/isolation [] Abandonment Spirituality of Patient [] Person of Marley [] Attends Islam of their Marley [] Believes in Prayer [] Reads Bible or Restorationism materials [] There are Spiritual issues to be addressed Animal Services Officer Interventions [] Prayer [] Active listening [] Non-anxious presence [] Spiritual/emotional support [] Crisis/trauma care [] Spiritual counseling [] Bereavement support [] Provided bereavement packet [] Provided Bible/devotional materials [] Provided toy/stuffed animal, coloring book to patient or family member [] Provided Communion [] Anointing/[place] [] Salvation [] Completed spiritual assessment [] Other: Impact on Illness or Injury [] Angry [] Fearful [] Anxious [] Often cries [] Exhaustion [] Unable to work [] Unable to attend orthodox [] Unable to walk/stand [] Unable to read [] Unable to drive [] Unable to eat/drink [] Unable to sleep [] Unable to be with family [] Patient intubated [] Other: Summary Time spent with patient
--- NOTE | 2020-03-21 11:03 | P.PN_ITS ---
Subjective Subjective: Interval history: He is awake, alert, denies any pain or discomfort, although with slowed speech and movements and with poor recollection of events preceding the hospitalization. While eating breakfast spilled coffee on his gown. He is oriented to being in and the year being 2020. He does not remember having difficulties with ambulation and falling prior to admission. He denies headache, dizziness, vision changes, or any other abnormal symptoms. She reports having long history of depression, anxiety, and states has been taking lorazepam for about 5 years. He then brings up he is curious how long it has been since he has been discharged from [facility]. Vitals/I&O/Wt Last Vital Signs Temp 97.4 F L 03/21/20 07:36 Pulse 61 03/21/20 07:36 Resp 18 03/21/20 07:36 BP 138/76 03/21/20 07:36 Pulse Ox 97 03/21/20 07:36 03/20/20 03/21/20 03/21/20 22:59 06:59 14:59 Output Total 150 / 150 Balance -150 / -150 Weight last 48 hrs Weight 81.647 kg Physical Exam Const: COMMON NORMALS: no acute distress GENERAL APPEARANCE: cooperative ORIENTATION/CONSCIOUSNESS: Yes awake, Yes oriented to place ([facility] location, although does not name the hospital, states he), Yes oriented to time (Knows it is 2020) and Yes Other orientation findings HENMT: COMMON NORMALS: oropharynx normal Neck/C-Spine: COMMON NORMALS: no meningeal signs and no JVD Resp: COMMON NORMALS: normal respiratory effort and clear to auscultation bilaterally AUSCULTATION: clear to auscultation bilaterally Cardio: COMMON NORMALS: no JVD, regular rhythm, S1 normal heart sound present, S2 normal heart sound present and No murmurs present (Cardio) RHYTHM: regular rhythm HEART SOUNDS: S1 normal heart sound present and S2 normal heart sound present GI: COMMON NORMALS: Normal to inspection, nondistended, normoactive bowel sounds present, Soft to palpation and non-tender PALPATION: Yes Soft to palpation Extremity: COMMON NORMALS: no joint enlargement and no pedal edema NARRATIVE EXTREMITY EXAM: No rigidity, no myoclonus. OTHER: Hand deformity secondary to rheumatoid arthritis, without signs of current active inflammation. Neuro: COMMON NORMALS: moves all extremities MENINGEAL SIGNS: Yes no meningeal signs SENSORY EXAM: Yes Normal double simultaneous stimulation for sensation OTHER: Slow mentation and movements. Sensation symmetrical, intact. Generally weakened, but power symmetrical. Skin: COMMON NORMALS: no rashes or lesions noted GENERAL SKIN EXAM: no rashes or lesions noted Data : 03/20/20 23:24 03/20/20 14:30 A&P Assessment and plan (1) Altered mental status: Acute encephalopathy, suspected secondary to medication, with resultant altered mental status, fall. He appears to be more awake and alert. Still sluggish, with slowed speech, movements. Spilled coffee and is gone this morning. Reports history of longstanding anxiety and depression. Appears recently was admitted to [facility]. He does not recall taking more medications recently than usual. States he has been on lorazepam for close to about 5 years. Appears medications recently were changed to Seroquel in effort to reduce the dose of benzodiazepine. He does not appear to be currently withdrawing from benzodiazepines. I attempted to reach his to get more details as to his baseline mental status. He knows it is 2020, but appears to think he is in a psychiatric unit. Does not have much recollection from the last several days, and does not recall falling prior to admission. We are getting physical therapy assessment on him, but with possible medication effect these will need additional titration. Seroquel for now is on hold. Continue to monitor mental status recovery. Pressures appears also most transferred to [facility] due to suicidal ideation here. Will request records from that hospitalization. Monitor for any worsening depression or other changes with medication changes. Currently he is comfortable, denying any pain or distress. Does not have focal neurologic abnormality. No suggestion of DIRECTOR OF SPORTS PERFORMANCE infection at this time. Does not appear to have symptoms of serotonin syndrome or NMS. We will assess orthostatic blood pressure. Hold off additional IV fluid. Encourage p.o. nutrition, hydration. Mild sinus bradycardia. Monitor. He also appears was previously treated w Rituxan for RA. Although possibly has not received a dose since April 2019. Would hold for now and follow up with rheumotology. Does not have focal deficits currently to suggest PML. Status: Acute (2) Fatigue: He appears to be feeling better. More awake, alert. Stronger. Still slowed mentation and movements. TSH, B12 normal. Additional medication adjustment as above. At this time does not appear to have obvious symptoms to suggest coronavirus or other infection. Status: Acute (3) Polypharmacy: Hold benzodiazepines, with lorazepam as needed. Monitor for any withdrawal. Seroquel on hold for now. 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 Coding Level of Care Code Acute Signal Tower Operator for g Fwd Diagnoses Altered mental status R41.82 Fatigue R53.83 Polypharmacy Z79.899
[2020-03-21 11:20] VITALS: BP 110/74; BP 118/69; BP 126/71
[2020-03-21 12:00] VITALS: PULSE 61; RESP 18; TEMP 36.6; O2SAT 95
[2020-03-21 15:31] VITALS: BP 125/50; PULSE 70; RESP 19; TEMP 36.6; O2SAT 96
[2020-03-21 19:39] VITALS: BP 126/72; PULSE 78; RESP 18; TEMP 36.6; O2SAT 95
[2020-03-21] MEDS: tamsulosin 0.4 mg Capsule PO (21:52)
[2020-03-22] VITALS (8 sets, daily range): BP systolic 113–134; BP diastolic 67–82; PULSE 70–96; RESP 16–18; TEMP 36.4–36.9; O2SAT 95–99
[2020-03-22 03:11] LABS: Basophils % 0.4 %; Eosinophils # 0.2 10^3/uL (0.0-0.8); Eosinophils % 3.1 %; Hematocrit 39.6 % (42.0-52.0); Hemoglobin 12.9 g/dL (11.7-16.6); Lymphocytes # 1.5 10^3/uL (0.8-4.8); Lymphocytes % 22.5 %; Mean Corpuscular HGB Conc 32.6 g/dL (30.0-36.0); Mean Corpuscular Hemoglobin 30.1 pg (28.0-34.0); Mean Corpuscular Volume 92.3 fL (80-94); Mean Platelet Volume 9.4 fL (7.4-10.4); Monocytes # 0.7 10^3/uL (0.2-0.9); Monocytes % 9.8 %; Neutrophils % 64.1 %; Nucleated Red Blood Cells % 0 %; Platelet Count 161 10^3/cmm (130-400); Red Blood Count 4.29 10^6/uL (4.1-5.3); Red Cell Distribution Width 12.4 % (12.1-15.1); White Blood Count 6.7 10^3/uL (4.0-10.0)
[2020-03-22 04:05] LABS: Alanine Aminotransferase 10 U/L (0-41); Albumin Level 3.3 g/dL (3.5-5.2); Alkaline Phosphatase 95 IU/L (40-130); Anion Gap 9.8 (5-19); Aspartate Amino Transferase 15 U/L (0-40); Blood Urea Nitrogen 21 mg/dL (8-23); Carbon Dioxide 31 mmol/L (22-29); Chloride 99 mmol/L (98-107); Creatinine Clr Calc Pharmacy 52.0327; Globulin 2.8 g/dL (1.3-4.6); Glucose 98 mg/dL (65-115); Osmolality Calculated 285 mOsm/kg (285-295); Potassium 3.8 mmol/L (3.5-5.1); Sodium 136 mmol/L (136-145); Total Bilirubin 0.3 mg/dL (0.15-1.2); Total Protein 6.1 g/dL (6.6-8.7)
[2020-03-22] MEDS: escitalopram 10 mg Tablet PO (06:16)
[2020-03-22] MEDS: sennosides-docusate Tablet 2 TAB PO (08:37)
--- NOTE | 2020-03-22 15:03 | CT_ITS ---
WS: [id number] CT HEAD NONCONTRAST HISTORY: unwitnessed fall TECHNIQUE: Contiguous axial imaging performed through the brain in 2.5 mm imaging. Bone and soft tiss ue windows. Sagittal and coronal reformats reviewed. All CT scans at [facility] use at le ast one of these dose optimization techniques: automated exposure control; mA and/or kV adjustment pe r patient size (includes targeted exams where dose is matched to clinical indication); or iterative r econstruction. DLP: 901.05 mGy.cm COMPARISON: None available. No acute intracranial hemorrhage, midline shift or mass effect. Mild atrophy with moderate to severe chronic microvascular ischemic changes in the white matter. Prio r lacunar infarcts in the basal ganglia. Ventricles: Normal size with no hydrocephalus. Paranasal sinuses: As visualized are clear. Mastoid air cells: Well pneumatized. Calvarium and scalp: Skull is intact with no soft tissue edema or swelling. Moderate atherosclerosis of the intracranial carotid arteries and distal vertebral arteries. CT/CT head wo con* [id number] IMPRESSION: 1. No acute intracranial hemorrhage or edema. 2. Moderate to severe chronic microvascular ischemic changes and multiple bila teral lacunar infarcts.
--- NOTE | 2020-03-22 15:03 | XRR_ITS ---
PROCEDURE INFORMATION: Exam: XR Left Hip with Pelvis when Performed Exam date and time: 03/22/2020 3:33 PM Age: 79 years old Clinical indication: Pain and injury or trauma; Fall; Blunt trauma (contusions or hematomas); Hip pain; Left hip; Additional info: Pain after unwitnessed fall TECHNIQUE: Imaging protocol: XR Left hip with pelvis when performed. Views: 2 or 3 views. COMPARISON: CT Chest/Abdomen/Pelvis o 09/14/2016 10:33 AM FINDINGS: Bones/joints: There is symmetrical narrowing of the joint space of the left hip consistent with osteoarthritis. Bone spurs are present in the inferior aspect of the left femoral head. No acute fracture. Soft tissues: Unremarkable. XR/XR hip LT 2-3V wo/w pel* [id number] IMPRESSION: 1. Osteoarthritis 2. Otherwise No acute findings.
--- NOTE | 2020-03-22 20:12 | PM.PN ---
Subjective Subjective: Interval history: More alert and awake. He does not recall anything in terms of how he ended up in the hospital, or really anything from the preceding few days before the hospitalization. He is able to tell me that he was previously assessed here in ER, and then transferred to [facility] due to worsening anxiety. On additional questioning he confirms that he at that time may have been considering ending his life due to the severity of this illness. When asked whether he may have had additional thoughts about this he states perhaps not enough these thoughts have crossed his mind. He is currently not having any suicidal ideation or thoughts of harming himself. When asked if he would seek help in case these thoughts return, states he will use. He is agreeable to speak with the psychiatrist. He denies taking additional doses of medications beyond what he was prescribed. Vitals/I&O/Wt Last Vital Signs Temp 98.1 F 03/22/20 19:26 Pulse 70 03/22/20 19:26 Resp 18 03/22/20 19:26 BP 119/69 03/22/20 19:26 Pulse Ox 96 03/22/20 19:26 03/22/20 03/22/20 03/22/20 06:59 14:59 22:59 Intake Total 360 / 360 140 / 500 Balance 360 / 360 140 / 500 Physical Exam Const: COMMON NORMALS: no acute distress GENERAL APPEARANCE: cooperative ORIENTATION/CONSCIOUSNESS: Yes awake, Yes oriented to person, Yes oriented to place, Yes oriented to time and Yes Other orientation findings OTHER: He is better oriented today. More alert. HENMT: COMMON NORMALS: oropharynx normal Neck/C-Spine: COMMON NORMALS: no meningeal signs and no JVD Resp: COMMON NORMALS: normal respiratory effort and clear to auscultation bilaterally AUSCULTATION: clear to auscultation bilaterally Cardio: COMMON NORMALS: no JVD, regular rhythm, S1 normal heart sound present, S2 normal heart sound present and No murmurs present (Cardio) RHYTHM: regular rhythm HEART SOUNDS: S1 normal heart sound present and S2 normal heart sound present GI: COMMON NORMALS: Normal to inspection, nondistended, normoactive bowel sounds present, Soft to palpation and non-tender PALPATION: Yes Soft to palpation Extremity: COMMON NORMALS: no joint enlargement and no pedal edema NARRATIVE EXTREMITY EXAM: No rigidity, no myoclonus. OTHER: Bilateral hand deformity secondary to rheumatoid arthritis, without signs of current active inflammation. Neuro: COMMON NORMALS: moves all extremities SENSORIUM/ORIENTATION: Yes oriented to person, Yes oriented to place and Yes oriented to time MENINGEAL SIGNS: Yes no meningeal signs SENSORY EXAM: Yes Normal double simultaneous stimulation for sensation Skin: COMMON NORMALS: no rashes or lesions noted GENERAL SKIN EXAM: no rashes or lesions noted Data : 03/22/20 02:40 03/22/20 02:40 A&P Assessment and plan (1) Altered mental status: He appears to be improving, sluggishness resolving, although still today will take a shower while his media assistant had to step away to get something fell down while in the shower. CT of the head ordered. Was complaining of mild left hip pain. X-ray ordered. Both without acute findings. CT head with moderate to severe chronic microvascular ischemic changes and multiple bilateral lacunar infarcts. We will add aspirin. Statin. Request cardiac monitoring, carotid duplex, A1c. Overall, however, does not appear to have focal abnormalities. Suspicion is still regarding medication overdose, inadvertent, although given his reported missing medications (Ativan) possibility still exists of intentional overdose. He himself denies taking medications beyond what was prescribed to him. Denies active suicidal ideation. Does state that thoughts of self-harm had crossed his mind recently due to severe anxiety. Discussed concerns with psychiatry and requested consultation. Appreciate also recommendations with regards to approach to further treatment of his underlying anxiety and depression given his medications for now been on hold. Discussed with nursing staff to monitor also for possible withdrawal from benzodiazepines. Mild sinus bradycardia resolved. Monitor. He also appears was previously treated w Rituxan for RA. Although possibly has not received a dose since April 2019. This was also confirmed by his . Would hold for now and follow up with rheumotology. Does not have focal deficits currently to suggest PML. Status: Acute (2) Fatigue: He appears to be feeling better. More awake, alert. Stronger. Still slowed mentation and movements. TSH, B12 normal. Additional medication adjustment as above. At this time does not appear to have obvious symptoms to suggest coronavirus or other infection. PT OT. Status: Acute (3) Polypharmacy: Hold benzodiazepines, with lorazepam as needed. Monitor for any withdrawal. Seroquel on hold for now. I am also holding metoprolol succinate because of sinus bradycardia Appreciate psychiatry consultation to aid in resuming his psychiatric medications. 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 Coding Level of Care Code Acute Claim Professional for Emily Adair Diagnoses Altered mental status R41.82 Fatigue R53.83 Polypharmacy Z79.899
[2020-03-22] MEDS: atorvastatin 40 mg Tablet PO (22:39)
[2020-03-22] MEDS: tamsulosin 0.4 mg Capsule PO (22:40)
[2020-03-22] MEDS: aspirin 81 mg EC Tablet 162 MG PO (22:40)
[2020-03-23] VITALS (13 sets, daily range): BP systolic 122–156; BP diastolic 67–88; PULSE 78–104; RESP 17–18; TEMP 36.6–37.2; O2SAT 95–98
--- NOTE | 2020-03-23 06:00 | USCV_ITS ---
Rafiq Crystal Age: 79 Gender: M : 1940 Exam Date: 03/23/2020 06:22 Ordering Phys: Cole Spangler MD Technologist: Morgan Johnson [place]am [place] [facility] [place]: CVA,AMS Risk Factors: Previous Vascular Surgery: Right Brachial BP: / Left Brachial BP: / Right Left Velocity (cm/s) Spectral Plaque Velocity (cm/s) Spectral Plaque Syst/Diast Broadening Syst/Diast Broadening 110.30/17.60 Prox CCA 144.40/ 25.40 133.40/20.90 Mid CCA 121.30/ 26.50 116.90/22.10 Distal CCA 114.70/ 28.70 102.50/17.60 Prox ICA 99.20 / 20.90 94.80/ 23.20 Mid ICA 97.00 / 17.60 102.50/23.20 Distal ICA 80.50 / 17.60 92.60 ECA 108.10 0.77 ICA/CCA 0.69 Antegrade Vertebral Antegrade 60.60/ 15.40 cm/s 91.50/ 23.20 cm/s Tri Subclavian Tri 92.60 201.1 0 FINDINGS Comparison: none available. No significant elevation of systolic or diastolic velocities. Mild bilateral scattered calcified plaque and intimal thickening extending through the bifurcation. CONCLUSIONS Bilateral ICA stenosis less than 50%. Dr. Karen Salguero DO (Electronically Signed) Final Date: 23 March 2020 08:05 S
[2020-03-23 06:06] LABS: Basophils % 0.5 %; Eosinophils # 0.2 10^3/uL (0.0-0.8); Hematocrit 39.1 % (42.0-52.0); Hemoglobin 12.9 g/dL (11.7-16.6); Lymphocytes # 1.4 10^3/uL (0.8-4.8); Lymphocytes % 19.5 %; Mean Corpuscular Hemoglobin 29.9 pg (28.0-34.0); Mean Corpuscular Volume 90.7 fL (80-94); Mean Platelet Volume 9.5 fL (7.4-10.4); Monocytes # 0.7 10^3/uL (0.2-0.9); Monocytes % 9.9 %; Neutrophils % 66.8 %; Nucleated Red Blood Cells % 0 %; Platelet Count 160 10^3/cmm (130-400); Red Blood Count 4.31 10^6/uL (4.1-5.3); Red Cell Distribution Width 12.2 % (12.1-15.1); White Blood Count 7.3 10^3/uL (4.0-10.0)
[2020-03-23 06:30] LABS: Alanine Aminotransferase 11 U/L (0-41); Albumin Level 3.4 g/dL (3.5-5.2); Alkaline Phosphatase 99 IU/L (40-130); Anion Gap 10.8 (5-19); Aspartate Amino Transferase 19 U/L (0-40); Blood Urea Nitrogen 21 mg/dL (8-23); Calcium 8.9 mg/dL (8.5-10.5); Carbon Dioxide 29 mmol/L (22-29); Chloride 102 mmol/L (98-107); Globulin 2.8 g/dL (1.3-4.6); Glucose 87 mg/dL (65-115); Osmolality Calculated 288 mOsm/kg (285-295); Potassium 3.8 mmol/L (3.5-5.1); Sodium 138 mmol/L (136-145); Total Bilirubin 0.3 mg/dL (0.15-1.2); Total Protein 6.2 g/dL (6.6-8.7)
[2020-03-23] MEDS: escitalopram 10 mg Tablet PO (06:46)
[2020-03-23 07:49] LABS: Estmated Average Glucose 100; Hemoglobin A1C 5.1 % (4.0-6.0)
[2020-03-23] MEDS: sennosides-docusate Tablet 2 TAB PO (08:46)
[2020-03-23] MEDS: aspirin 81 mg EC Tablet 162 MG PO (08:46)
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
--- NOTE | 2020-03-23 19:47 | PM.PN ---
Subjective Subjective: Interval history: He reports today he is feeling better. He remembers speaking with me yesterday. Denies pain or discomfort. Has gotten up again today. Overall he states that he is getting to feel like his usual self. Later in the day he requests additional conversation, and states that he had earlier spoken with psychiatrist told him that he in fact did try to commit suicide again after discharge from [facility]. States that he took a bottle of Ativan all at once. States that his had told him that she found an empty bottle today. He also states that he is starting to feel unwell, with tremor, anxiety. Vitals/I&O/Wt Last Vital Signs Temp 98.1 F 03/23/20 19:15 Pulse 91 03/23/20 19:15 Resp 18 03/23/20 19:15 BP 136/75 03/23/20 19:15 Pulse Ox 97 03/23/20 19:15 03/23/20 03/23/20 03/23/20 06:59 14:59 22:59 Intake Total 360 / 360 120 / 480 Balance 360 / 360 120 / 480 Physical Exam Const: COMMON NORMALS: no acute distress GENERAL APPEARANCE: cooperative ORIENTATION/CONSCIOUSNESS: Yes awake, Yes oriented to person, Yes oriented to place, Yes oriented to time and Yes Other orientation findings OTHER: He is better oriented today. More alert. HENMT: COMMON NORMALS: oropharynx normal Neck/C-Spine: COMMON NORMALS: no meningeal signs and no JVD Resp: COMMON NORMALS: normal respiratory effort and clear to auscultation bilaterally AUSCULTATION: clear to auscultation bilaterally Cardio: COMMON NORMALS: no JVD, regular rhythm, S1 normal heart sound present, S2 normal heart sound present and No murmurs present (Cardio) RHYTHM: regular rhythm HEART SOUNDS: S1 normal heart sound present and S2 normal heart sound present GI: COMMON NORMALS: Normal to inspection, nondistended, normoactive bowel sounds present, Soft to palpation and non-tender PALPATION: Yes Soft to palpation Extremity: COMMON NORMALS: no joint enlargement and no pedal edema NARRATIVE EXTREMITY EXAM: No rigidity, no myoclonus. OTHER: Bilateral hand deformity secondary to rheumatoid arthritis, without signs of current active inflammation. Neuro: COMMON NORMALS: moves all extremities SENSORIUM/ORIENTATION: Yes oriented to person, Yes oriented to place and Yes oriented to time MENINGEAL SIGNS: Yes no meningeal signs SENSORY EXAM: Yes Normal double simultaneous stimulation for sensation OTHER: Slow mentation and movements. Sensation symmetrical, intact. Generally weakened, but power symmetrical. Skin: COMMON NORMALS: no rashes or lesions noted GENERAL SKIN EXAM: no rashes or lesions noted Data : 03/23/20 04:57 03/23/20 04:57 A&P Assessment and plan (1) Altered mental status: It appears this was encephalopathy secondary to overdose with Ativan as a suicide attempt. Ativan appears to be wearing off. He now describes exactly what he had done. Currently he also appears to be starting to withdraw from benzodiazepines. With tremor, anxiety. Will resume Ativan for him for withdrawal symptoms. Appreciate recommendations from psychiatry regarding of additional management given suicide attempt. Discussed with nursing staff. He currently denies suicidal ideation. He is willing to stay for additional assessment and treatment. In case he decided to leave, this would have to be confirmed and approved by psychiatry. CT head with moderate to severe chronic microvascular ischemic changes and multiple bilateral lacunar infarcts. Continue aspirin. Statin. Less than 50% stenosis on carotid Doppler. A1c 5.1. Overall, however, does not appear to have focal abnormalities. Mild sinus bradycardia resolved. Monitor. Resume metoprolol. He also appears was previously treated w Rituxan for RA. Although possibly has not received a dose since April 2019. This was also confirmed by his . Would hold for now and follow up with rheumotology. Does not have focal deficits currently to suggest PML. Status: Acute (2) Fatigue: Improving. TSH, B12 normal. Additional medication adjustment as above. At this time does not appear to have obvious symptoms to suggest coronavirus or other infection. PT OT. Status: Acute (3) Polypharmacy: Hold benzodiazepines, with lorazepam as needed. Monitor for any withdrawal. Seroquel on hold for now. He has been having quite a bit of difficulty weaning off benzodiazepines. States he has been on them for 5-6 years. Appreciate psychiatry consultation to aid in resuming his psychiatric medications. Status: Acute Additional A&P Information BPH: Continue tamsulosin Hypertension: Hold hydrochlorothiazide triamterene combination for now RA: follows w university relations vice president in Attestations Medical Necessity Statement*: Continue admission for cyst management of acute encephalopathy, drug overdose, suicide attempt with underlying chronic severe anxiety, chronic benzodiazepine use. Coding Level of Care Code Acute Executive Administrative Assistant for Chg Fwd Diagnoses Altered mental status R41.82 Fatigue R53.83 Polypharmacy Z79.899
[2020-03-23] MEDS: atorvastatin 40 mg Tablet PO (19:49)
[2020-03-23] MEDS: tamsulosin 0.4 mg Capsule PO (19:49)
[2020-03-23] MEDS: LORazepam 0.5 mg Tablet PO (19:49)
--- NOTE | 2020-03-23 20:37 | PC.NURSE ---
WHEN GIVING REPORT THIS EVENING TO THE NIGHT NURSE, GRAYSON Lofton LPN, THIS NURSE AND THE OTHER NURSE WENT IN TO DO BED SIDE REPORT. WHEN WE ENTERED IN THE PT'S ROOM HE WAS LAYING IN BED, LOOKED TO BE RELAXED. THE NIGHT NURSE BEGAN ASSESSING HIM AND ASKING HIM A FEW QUESTIONS AND THE PT TOLD BOTH THIS NURSE AND THE NIGHT NURSE WHY HE WAS HERE AND WHAT HAD HAPPENED. HE WAS TELLING US ABOUT HOW HE HAD RECENTLY LEFT A DIFFERENT FACILITY AND THEY HAD ADJUSTED HIS ATIVAN TO .25 INSTEAD OF .5 WHICH HE WAS OKAY WITH BECAUSE HE WANTS TO STOP TAKING THE MEDICATION ALTOGETHER BECAUSE HE HAS BEEN ON IT FOR 6 YEARS. THE PT HAD THEN STATED THAT HE WAS SUICIDAL AFTER COMING HOME AND THAT HE TRIED HARMING HIMSELF SATURDAY EVENING AT HOME. HE STATED THAT HE DRANK A WHOLE BOTTLE ON PURPOSE BECAUSE HE DIDN'T WANT TO LIVE ANYMORE. AFTER STATING THIS HE THEN SAID THAT HE MADE A MISTAKE AND HE WAS SORRY. HE DIDN'T KNOW WHY HE FELT LIKE THAT AT THE TIME BECAUSE HE DID WANT TO LIVE. AFTER THIS THESE NURSES RETURNED TO THE NURSES STATION AND THE DOCTOR WAS THERE AT THE NURSES STATION WELL. THE NIGHT NURSE THEN TOLD THE DOCTOR WHAT THE PT HAD JUST TOLD US. THE DOCTOR SAID HE WAS AWARE OF THIS AND THAT THE PT HAD JUST TOLD HIM SOMETHING SIMILAR. THE PSYCHIATRIST HAS BEEN IN TO SEE THIS PT WELL. THE HOSPITALIST AND PSYCHIATRIST WILL CONSULT TOGETHER TO COME UP WITH A PROPER PLAN TO TREAT THIS PT. WILL CONTINUE TO MONITOR.
[2020-03-24] VITALS (7 sets, daily range): BP systolic 114–166; BP diastolic 55–85; PULSE 69–84; RESP 16–18; TEMP 36.4–36.9; O2SAT 96–100
[2020-03-24] MEDS: metoprolol succinate ER (24 HR) 25 mg Tablet PO (06:28)
[2020-03-24] MEDS: escitalopram 10 mg Tablet PO (06:28)
[2020-03-24] MEDS: sennosides-docusate Tablet 2 TAB PO (10:27)
[2020-03-24] MEDS: aspirin 81 mg EC Tablet 162 MG PO (10:27)
--- NOTE | 2020-03-24 12:02 | PC.SOCIAL ---
IMM UPDATE Pg. 2 of IMM updated and reviewed with patient who verbalized understanding. Copy provided.
--- NOTE | 2020-03-24 12:08 | PC.SOCIAL ---
IMM UPDATE Pg. 2 of IMM updated and reviewed with patient who verbalized understanding. Copy provided.
--- NOTE | 2020-03-24 16:21 | XR_ITS ---
WS: [id number] Portable AP upright chest, 03/24/2020 Clinical Data: screen for Tx to geriatric psychiatric facility Comparison: Portable chest, 03/09/2020. Findings: No nodules, masses or effusions are seen. The heart is normal. The pulmonary vascularity is not increased. No pneumonia or pneumothorax is seen. The aortic arch and descending aorta are tortuo us. There is a dextroscoliosis of the thoracic spine. There is no evidence of tuberculosis. XR/XR chest 1V portable [id number] Impression: Atherosclerosis.
[2020-03-24 16:47] LABS: Influenza A by IFA Negative (Negative); Influenza B by IFA Negative (Negative)
[2020-03-24 17:16] LABS: SARS Covid-2 Antigen Negative (Negative)
[2020-03-24] MEDS: LORazepam 0.5 mg Tablet PO (18:02)
--- NOTE | 2020-03-24 18:36 | P.PN_ITS ---
Subjective NPU Subjective: Interval history: Rafiq presents today still desiring to go home but more accepting of the fact that there is no way we will allow him to go home given the circumstances. He and his were present again and he identified that he would be actually willing to go back to [facility] as he knows the person that was there has been discharged and he is agreeing to place at this point. So he would be open to which ever geriatric facility would accept him. Mental Status Exam MSE Comments: This is a well-nourished well-developed white male looking younger than his stated age with adequate grooming and eye contact. No abnormal movements except for mild psychomotor retardation. Cooperative with exam in no acute distress. Speech was decreased rate and volume. Mood described as better, affect slightly subdued. Thought process organized. Thought content: Patient denied suicidal or homicidal ideation, there were no delusions reported or noted, he denied any auditory or visual hallucinations. Attention and concentration appeared intact and memory appeared reliable but none performed at the date alert more x3. Insight and judgment are fair and impulse control is limited to impaired. Vitals/I&O/Wt Last Vital Signs Temp 97.8 F 03/24/20 15:07 Pulse 82 03/24/20 15:07 Resp 17 03/24/20 15:07 BP 159/81 03/24/20 15:07 Pulse Ox 100 03/24/20 15:07 03/24/20 03/24/20 03/24/20 06:59 14:59 22:59 Intake Total 360 / 360 240 / 600 Balance 360 / 360 240 / 600 Data NPU : 03/23/20 04:57 03/23/20 04:57 A&P Additional A&P Information (1) Polypharmacy: (2) Altered mental status: (3) Depression: (4) Anxiety: (5) Insomnia: (6) Intentional overdose of drug in tablet form: Additional A&P Information This is a 79-year-old white male with a long history of mental health challenges going back to his 50s who presents status post overdose with lorazepam tablets in part due to challenges that come from his insomnia which has been really bad the past 6 months recently being discharged from a geriatric facility on 03/18/2020. 1. Continue current medication. We will explore possible medication changes and work with primary team/inpatient geriatric psychiatric team to determine what to do with his benzodiazepine. 2. Recommend sleep study. Patient ports often history of sleep difficulties with be good to identify if there is any clear indication of what is happening. Otherwise need resolution of his sleep deprivation. 3. Patient with his second overdose on prescription medication in the last 7 years both times requiring hospitalization. 4. Agree with inpatient geriatric psychiatric services at what ever facility is available 5. Please advise if any further assistance is needed. Attestations NPU Medical Necessity Statement*: N/A. Please refer to primary team note for medical necessity. However agree with inpatient geriatric psychiatric services. Coding Level of Care Code Acute Personal Computer Network Analyst for Emily Adair
--- NOTE | 2020-03-24 19:49 | PM.TDS ---
Transfer Summary Providers Date of Admission: 03/21/20 13:27 Date of Discharge: 03/24/20 Attending Provider at Admission: Brandon Cohen MD Attending Provider at Transfer: Cole Spangler Primary Care Provider: Ezio Lay Jr, MD Anticipated Date of Transfer: Anticipated date of transfer: 03/24/20 Receiving Facility & Provider: Receiving Provider: [] Receiving facility: [] Diagnoses at Discharge Discharge Diagnosis (1) Suicide attempt by benzodiazepine overdose: Status: Acute (2) Anxiety: Status: Acute (3) Polypharmacy: Status: Acute (4) Altered mental status: Status: Acute (5) Depression: Status: Acute (6) Insomnia: Status: Acute (7) Intentional overdose of drug in tablet form: Status: Acute Reason for Visit Reason for Visit: AMS WITH FALL; LETHARGY Hospital Course Hospital Course Very pleasant 79-year-old gentleman with long history of severe anxiety, on chronic benzodiazepines, up until not long ago as high as 1 mg 3 times a day, was recently admitted to [facility] psychiatric facility after presenting to [facility] with concerns that his anxiety has not been controlled, and due to severity of anxiety he has had suicidal ideation, with plans to shoot himself with a gun. He underwent assessment and treatment at [facility], and was discharged with changed medication regimen with decrease in lorazepam 2.5 mg 3 times a day, as well as with newly initiated Seroquel dose. Several days after discharge his noted that he was extremely lethargic, with AMS, generally weak, and was having difficulty walking, even falling down when she was trying to walk him to the bathroom. He was admitted for assessment management of acute encephalopathy here. Work-up on presentation, through hospitalization was not suggestive of acute infection, including [employer] infection, he had no focal neurologic deficits. His drug screen was positive for benzodiazepines. His medications were held on presentation. Studies included unremarkable UA, chest x-ray, CT head with finding of moderate to severe chronic microvascular ischemic changes and multiple bilateral lacunar infarcts, but without intracranial hemorrhage or edema. Initially with soft blood pressures his antihypertensives were held. His mental status was gradually improving, though he was having some memory deficits initially in addition to the generalized weakness, poor motor coordination. Due to a fall from a chair in the shower head CT was reassessed and left hip x-rays taken which were unremarkable. All of the symptoms, however, were gradually improving, with improvement in memory deficits. Due to visualized historical CVA on CT scan, he was started on aspirin, statin. Carotid Doppler was obtained which showed bilateral ICA stenosis less than 50%. As he was becoming gradually more alert, he appears to have reached his baseline mental status, and subsequently becoming anxious, with some tremor. Due to concern for withdrawal from benzodiazepines, lorazepam restarted at lower doses as needed for symptoms of withdrawal. His also notified us that she had found an empty Ativan bottle at home. He at that point admitted that he had taken the entire bottle 2 days after discharge from the hospital in an attempt to end his life. He did not tell his about any of his plans, and did not say anything to her or anyone else after doing this. He was assessed by psychiatry in our facility, with recommendation for additional assessment and treatment at geriatric psychiatric facility (unavailable here), and establishment of stable medication regimen for treatment of his severe anxiety, depression, with suicide attempt. He has also been having quite a bit of sleep difficulties which may be contributing to his symptoms. Additional assessment treatment of this may be beneficial, perhaps including a sleep study. Physical Exam Const: COMMON NORMALS: no acute distress GENERAL APPEARANCE: cooperative ORIENTATION/CONSCIOUSNESS: Yes awake, Yes oriented to person, Yes oriented to place, Yes oriented to time and Yes Other orientation findings OTHER: He is awake, alert, walking in the room without assistance. Lucid. Appears to be at baseline. is by his side during our discussion of his condition, and plans for transfer to geriatric psychiatric facility. HENMT: COMMON NORMALS: oropharynx normal Neck/C-Spine: COMMON NORMALS: no meningeal signs and no JVD Resp: COMMON NORMALS: normal respiratory effort and clear to auscultation bilaterally AUSCULTATION: clear to auscultation bilaterally Cardio: COMMON NORMALS: no JVD, regular rhythm, S1 normal heart sound present, S2 normal heart sound present and No murmurs present (Cardio) RHYTHM: regular rhythm HEART SOUNDS: S1 normal heart sound present and S2 normal heart sound present GI: COMMON NORMALS: Normal to inspection, nondistended, normoactive bowel sounds present, Soft to palpation and non-tender PALPATION: Yes Soft to palpation Extremity: COMMON NORMALS: no joint enlargement and no pedal edema NARRATIVE EXTREMITY EXAM: No rigidity, no myoclonus. OTHER: Bilateral hand deformity secondary to rheumatoid arthritis, without signs of current active inflammation. Neuro: COMMON NORMALS: moves all extremities SENSORIUM/ORIENTATION: Yes oriented to person, Yes oriented to place and Yes oriented to time MENINGEAL SIGNS: Yes no meningeal signs SENSORY EXAM: Yes Normal double simultaneous stimulation for sensation Skin: COMMON NORMALS: no rashes or lesions noted GENERAL SKIN EXAM: no rashes or lesions noted TS Data Data Completed and Pending: Completed Studies During Hospitalization Category Date Time Status CT head wo con* 7 0450 Routine Cat Scan 03/22/20 15:[address] head wo con* 7 0450 Urgent Cat Scan 03/20/20 18:46 Completed XR chest 1V armaan ble [id number] Urgent Exams 03/24/20 16:21 Completed XR hip LT 2-3V wo /w pel* [id number] Rout ine Exams 03/22/20 15:03 Completed CV carotid duplex BI* [id number] Routine Ultrasound 03/23/20 06:00 Completed Labs from last 24 hours 03/24/20 03/24/20 16:00 16:00 Influenza Type A A g Negative Influenza Type B A g Negative SARS-CoV-2 Ag (Rap id) Negative Vitals: Last Vital Signs Temp 97.8 F 03/24/20 15:07 Pulse 82 03/24/20 15:07 Resp 17 03/24/20 15:07 BP 159/81 03/24/20 15:07 Pulse Ox 100 03/24/20 15:07 TS Medications Medications Home Medications lorazepam 1 mg tablet 0.5 mg PO TID PRN 03/30/19 [History Confirmed 03/23/20] metoprolol succinate 25 mg tablet,extended release 24 hr 25 mg PO DAILY@0700 03/30/19 [History Confirmed 03/23/20] rituximab 10 mg/mL concentrate,intravenous 10 mg IVP [employer] 03/30/19 [History Confirmed 03/23/20] tamsulosin 0.4 mg capsule 0.4 mg PO DAILY@2100 03/30/19 [History Confirmed 03/23/20] triamterene 37.5 mg-hydrochlorothiazide 25 mg capsule 1 cap PO DAILY@0700 03/30/19 [History Confirmed 03/23/20] diclofenac sodium 1 % topical gel 2 gm TOPICAL QID PRN #100 gm 07/23/19 [Rx Confirmed 03/23/20] calcium 500 mg PO DAILY@0703/09/20 [History Confirmed 03/23/20] kcexnwlqmebb-jnqtzuug-kaubcn [Multivitamin 50 Plus] 1 tab PO DAILY@0703/09/20 [History Confirmed 03/23/20] escitalopram oxalate 10 mg PO DAILY@0703/20/20 [History Confirmed 03/23/20] quetiapine 50 mg PO DAILY@69903/20/20 [History Confirmed 03/23/20] quetiapine 200 mg PO BEDTIME@2100 03/20/20 [History Confirmed 03/23/20] senna-docusate sodium 2 cap PO DAILY 03/20/20 [History Confirmed 03/23/20] Active Medications Aspirin (Aspirin 81 Mg Ec Tablet) 162 mg PO DAILY [facility] Last Admin: 03/24/20 10:27 Dose: 162 mg Documented by: Atorvastatin Calcium (Atorvastatin 40 Mg Tablet) 40 mg PO BEDTIME [facility] Last Admin: 03/23/20 19:49 Dose: 40 mg Documented by: Diclofenac Sodium (Diclofenac 1% Topical Gel 100 Gm) 2 applic TOPICAL QID PRN PRN Reason: rheumatoid arthritis Escitalopram Oxalate (Escitalopram 10 Mg Tablet) 10 mg PO DAILY@07 [facility] Last Admin: 03/24/20 06:28 Dose: 10 mg Documented by: Lorazepam (Lorazepam 0.5 Mg Tablet) 0.5 mg PO TID PRN PRN Reason: ANXIETY Last Admin: 03/24/20 18:02 Dose: 0.5 mg Documented by: Metoprolol Succinate (Metoprolol Succinate Er (24 Hr) 25 Mg Tablet) 25 mg PO DAILY@0700 [facility] Last Admin: 03/24/20 06:28 Dose: 25 mg Documented by: Senna/Docusate Sodium (Sennosides-Docusate Tablet) 2 tab PO DAILY [facility] Last Admin: 03/24/20 10:27 Dose: 2 tab Documented by: Tamsulosin HCl (Tamsulosin 0.4 Mg Capsule) 0.4 mg PO DAILY@2099 [facility] Last Admin: 03/23/20 19:49 Dose: 0.4 mg Documented by: Discharge Plan Discharge Patient Disposition: Xfer Psychiatric Hosp Condition: Stable Prescriptions: No Action triamterene-hydrochlorothiazid 37.5-25 mg capsule 1 cap PO DAILY@0700 RF: 0 metoprolol succinate 25 mg tablet extended release 24 hr 25 mg PO DAILY@0700 RF: 0 lorazepam 1 mg tablet 0.5 mg PO TID PRN (Reason: Anxiety) RF: 0 tamsulosin 0.4 mg capsule 0.4 mg PO DAILY@2100 RF: 0 Rituxan 10 mg/mL concentrate 10 mg IVP [employer]ER QUALITY [employer]IST RF: 0 diclofenac sodium 1 % gel 2 gm TOPICAL QID PRN (Reason: rheumatoid arthritis) Qty: 100 RF: 1 calcium 500 mg Tablet 500 mg PO DAILY@0700 RF: 0 Multivitamin 50 Plus Tablet 1 tab PO DAILY@0700 RF: 0 quetiapine 200 mg tablet 200 mg PO BEDTIME@2100 RF: 0 escitalopram oxalate 10 mg tablet 10 mg PO DAILY@0700 RF: 0 quetiapine 50 mg tablet 50 mg PO DAILY@0700 RF: 0 senna-docusate sodium Capsule 2 cap PO DAILY RF: 0 Discharge Orders: Transfer Out of Facility (Order); Ordered 03/24/20 Ordered By: Cole Spangler Referrals: Ezio Lay Jr, MD [Primary Care Provider] - Transfer Attestations Time Spent in Transfer Care*: greater than 30 min Quality Metrics Clinical Quality Measures: During this hospital stay, did patient experience: None Coding Level of Care Code Acute [employer] Diagnoses Suicide attempt by benzodiazepine overdose T42.4X2A Anxiety F41.9 Polypharmacy Z79.899 Altered mental status R41.82 Depression F32.9 Insomnia G47.00 Intentional overdose of drug in tablet form T50.902A
[2020-03-24] MEDS: tamsulosin 0.4 mg Capsule PO (20:37)
[2020-03-24] MEDS: acetaminophen 325 mg Tablet 650 MG PO (21:37)
[2020-03-25] VITALS: BP 138/73; PULSE 78; RESP 18; TEMP 36.7; O2SAT 97
[2020-03-25] MEDS: LORazepam 0.5 mg Tablet PO ×2 (02:43→10:31)
[2020-03-25 04:00] VITALS: BP 139/72; PULSE 70; RESP 15; TEMP 37.1; O2SAT 96
[2020-03-25] MEDS: metoprolol succinate ER (24 HR) 25 mg Tablet PO (06:37)
[2020-03-25] MEDS: escitalopram 10 mg Tablet PO (06:37)
[2020-03-25 07:32] VITALS: BP 111/69; PULSE 81; RESP 17; TEMP 36.5; O2SAT 93
[2020-03-25] MEDS: aspirin 81 mg EC Tablet 162 MG PO (10:08)
[2020-03-25] MEDS: sennosides-docusate Tablet 2 TAB PO (10:09)
[2020-03-25 10:38] VITALS: BP 144/84; PULSE 82; RESP 16; TEMP 36.6; O2SAT 97
--- NOTE | 2020-03-25 11:14 | PC.NURSE ---
patient discharge at this time with the care of ambulance personnel in stable condition.
[2020-03-25 11:17] VITALS: BP 144/84; PULSE 82; RESP 16; TEMP 36.6; O2SAT 97
== END 2020-03-25 11:17 | DRG 917 ==
LOC: ER 19:22 → MEDSURG 20:38
PROVIDERS: Family Medicine; Psychiatry & Neurology Psychiatry; Admitting Provider Internal Medicine; Emergency Provider Emergency Medicine; PCP Family Medicine; Visit Provider Internal Medicine
DX: T42.4X2A Poisoning by benzodiazepines, intentional self-harm, initial encounter (principal); G92 Toxic encephalopathy; Y92.009 Unspecified place in unspecified non-institutional (private) residence as the place of occurrence of the external cause; F41.8 Other specified anxiety disorders; G47.00 Insomnia, unspecified; Z91.5 Personal history of self-harm; M06.9 Rheumatoid arthritis, unspecified; Z79.891 Long term (current) use of opiate analgesic; Z85.72 Personal history of non-Hodgkin lymphomas; Z87.891 Personal history of nicotine dependence; N40.0 Benign prostatic hyperplasia without lower urinary tract symptoms; I10 Essential (primary) hypertension; R00.1 Bradycardia, unspecified
CPT/HCPCS: 12345; 36415; 70450; 71045; 73502; 80053; 80306; 81001; 82140; 82607; 83036; 83735; 84100; 84443; 85025; 85651; 86140; 87426; 87804; 92507; 92526; 92610; 93005; 93880; 97110; 97116; 97161; 99282; G0378; J7799

== ENCOUNTER → 2020-04-21 13:21 | Outpatient (BNVA) | payer MEDICARE, OTHER, SELFPAY | PROVIDERS: PCP Family Medicine; Visit Provider Psychiatry & Neurology Psychiatry | DX: F32.9 Major depressive disorder, single episode, unspecified (principal); F41.1 Generalized anxiety disorder; F33.2 Major depressive disorder, recurrent severe without psychotic features | CPT/HCPCS: 80053; 80178; 84443; 99204 ==

== ENCOUNTER → 2020-04-25 08:50 | Outpatient (BNVA) | payer MEDICARE, OTHER, SELFPAY | PROVIDERS: PCP Family Medicine; Visit Provider Psychiatry & Neurology Psychiatry | DX: F33.2 Major depressive disorder, recurrent severe without psychotic features (principal); F41.1 Generalized anxiety disorder | CPT/HCPCS: 80178 ==

== ENCOUNTER → 2020-05-20 11:15 | Outpatient (BNVA) | payer MEDICARE, OTHER, SELFPAY | PROVIDERS: PCP Family Medicine; Visit Provider Psychiatry & Neurology Psychiatry | DX: F33.2 Major depressive disorder, recurrent severe without psychotic features (principal); F41.1 Generalized anxiety disorder | CPT/HCPCS: 80053; 80178; 84443; 85025; 99214 ==

== ENCOUNTER → 2020-06-07 13:46 | Outpatient (BNVA) | payer MEDICARE, OTHER, SELFPAY | PROVIDERS: PCP Nurse Practitioner; Visit Provider Internal Medicine Rheumatology | DX: M05.9 Rheumatoid arthritis with rheumatoid factor, unspecified (principal); M47.812 Spondylosis without myelopathy or radiculopathy, cervical region; M15.9 Polyosteoarthritis, unspecified; Z79.899 Other long term (current) drug therapy; M54.2 Cervicalgia; Z85.72 Personal history of non-Hodgkin lymphomas; Z87.891 Personal history of nicotine dependence; R97.20 Elevated prostate specific antigen [PSA] | CPT/HCPCS: 81003; 84153; 99214 ==

== ENCOUNTER → 2020-06-20 11:13 | Outpatient (BNVA) | payer MEDICARE, OTHER, SELFPAY | PROVIDERS: PCP Nurse Practitioner; Visit Provider Psychiatry & Neurology Psychiatry | DX: F33.2 Major depressive disorder, recurrent severe without psychotic features (principal); F41.1 Generalized anxiety disorder | CPT/HCPCS: 99214 ==

== ENCOUNTER 2020-08-29 08:29 | Outpatient (CLI) | payer MEDICARE, OTHER, SELFPAY ==
[2020-08-29 08:57] VITALS: BP 125/71; PULSE 63; RESP 16; TEMP 37; O2SAT 100
[2020-08-29] MEDS: acetaminophen 325 mg Tablet 650 MG PO (09:24)
[2020-08-29] MEDS: sodium chloride 0.9% 250 ML 75 ML IV (09:24)
[2020-08-29] MEDS: diphenhydrAMINE 50 mg/mL SDV 1mL IVP (09:25)
[2020-08-29 09:29] LABS: Basophils % 0.6 %; Eosinophils # 0.2 10^3/uL (0.0-0.8); Eosinophils % 2.9 %; Hematocrit 38.4 % (42.0-52.0); Hemoglobin 12.1 g/dL (11.7-16.6); Lymphocytes # 1.5 10^3/uL (0.8-4.8); Lymphocytes % 22.5 %; Mean Corpuscular HGB Conc 31.5 g/dL (30.0-36.0); Mean Corpuscular Hemoglobin 28.6 pg (28.0-34.0); Mean Corpuscular Volume 90.8 fL (80-94); Monocytes # 0.5 10^3/uL (0.2-0.9); Monocytes % 7.5 %; Neutrophils # 4.42 10^3/uL (1.8-7.7); Neutrophils % 66.3 %; Nucleated Red Blood Cells % 0 %; Platelet Count 191 10^3/cmm (130-400); Red Blood Count 4.23 10^6/uL (4.1-5.3); Red Cell Distribution Width 12.4 % (12.1-15.1); White Blood Count 6.7 10^3/uL (4.0-10.0)
[2020-08-29] MEDS: rituximab 1,000 MG in sodium chloride 0.9% 250 ML, primary tubing onc 1 EACH 90 MG IV (09:34)
[2020-08-29 09:52] LABS: Alanine Aminotransferase 12 U/L (0-41); Albumin Level 3.5 g/dL (3.5-5.2); Alkaline Phosphatase 92 IU/L (40-130); Aspartate Amino Transferase 17 U/L (0-40); C Reactive Protein 12.4 mg/L (0.0-4.9); Globulin 3.2 g/dL (1.3-4.6); Total Bilirubin 0.2 mg/dL (0.15-1.2); Total Protein 6.7 g/dL (6.6-8.7)
[2020-08-29 10:03] VITALS: BP 117/68; PULSE 58; RESP 16; TEMP 37.1; O2SAT 100
[2020-08-29 10:23] LABS: Erythrocyte Sedimentation Rate 36 mm/hr (0-10)
[2020-08-29 10:47] VITALS: BP 120/67; PULSE 56; RESP 16; TEMP 36.6; O2SAT 99
[2020-08-29 11:34] VITALS: BP 131/70; PULSE 57; RESP 16; TEMP 36.6; O2SAT 99
== END 2020-08-29 08:30 | disposition home or self-care (01) ==
PROVIDERS: PCP Nurse Practitioner; Referring Provider Internal Medicine Rheumatology; Visit Provider Internal Medicine Rheumatology
DX: M05.79 Rheumatoid arthritis with rheumatoid factor of multiple sites without organ or systems involvement (principal)
CPT/HCPCS: 80076; 82565; 85025; 85651; 86140; 96365; 96366; 96375; J1200; J2930; J7050; J9312

== ENCOUNTER 2020-09-12 06:23 | Outpatient (CLI) | payer MEDICARE, OTHER, SELFPAY ==
[2020-09-12 10:10] VITALS: BP 144/70; PULSE 64; RESP 18; TEMP 36.9; O2SAT 99
[2020-09-12] MEDS: acetaminophen 325 mg Tablet 650 MG PO (10:37)
[2020-09-12] MEDS: sodium chloride 0.9% 500 ML 75 ML IV (10:37)
[2020-09-12] MEDS: diphenhydrAMINE 50 mg/mL SDV 1mL IVP (10:39)
[2020-09-12] MEDS: rituximab 1,000 MG in sodium chloride 0.9% 250 ML, primary tubing onc 1 EACH 90 MG IV (11:04)
[2020-09-12 11:34] VITALS: BP 130/74; PULSE 60; RESP 18; TEMP 36.4; O2SAT 100
[2020-09-12 12:06] VITALS: BP 138/77; PULSE 59; RESP 18; TEMP 36.3; O2SAT 97
[2020-09-12 13:11] VITALS: BP 158/75; PULSE 63; RESP 18; TEMP 36.3; O2SAT 98
== END 2020-09-12 06:24 | disposition home or self-care (01) ==
LOC: ONCMED 06:27
PROVIDERS: PCP Nurse Practitioner; Visit Provider Internal Medicine Rheumatology
DX: M05.79 Rheumatoid arthritis with rheumatoid factor of multiple sites without organ or systems involvement (principal)
CPT/HCPCS: 96365; 96366; 96375; J1200; J2930; J7040; J7050; J9312

== ENCOUNTER → 2020-09-14 09:49 | Outpatient (BNVA) | payer MEDICARE, OTHER, SELFPAY | PROVIDERS: PCP Nurse Practitioner; Visit Provider Psychiatry & Neurology Psychiatry | DX: F33.2 Major depressive disorder, recurrent severe without psychotic features (principal); F41.1 Generalized anxiety disorder | CPT/HCPCS: 99213 ==

== ENCOUNTER → 2020-09-21 13:43 | Outpatient (BNVA) | payer MEDICARE, OTHER, SELFPAY | PROVIDERS: PCP Nurse Practitioner; Visit Provider Internal Medicine Rheumatology | DX: M05.9 Rheumatoid arthritis with rheumatoid factor, unspecified (principal); Z79.899 Other long term (current) drug therapy; Z71.89 Other specified counseling; M15.9 Polyosteoarthritis, unspecified; M47.812 Spondylosis without myelopathy or radiculopathy, cervical region; Z85.72 Personal history of non-Hodgkin lymphomas; Z87.891 Personal history of nicotine dependence | CPT/HCPCS: 99214 ==

== ENCOUNTER → 2020-12-06 11:01 | Outpatient (BNVA) | payer MEDICARE, OTHER, SELFPAY | PROVIDERS: PCP Nurse Practitioner; Visit Provider Urology | DX: R97.20 Elevated prostate specific antigen [PSA] (principal) | CPT/HCPCS: 81003; 84153 ==

== ENCOUNTER → 2020-12-08 09:25 | Outpatient (BNVA) | payer MEDICARE, OTHER, SELFPAY | PROVIDERS: PCP Nurse Practitioner; Visit Provider Psychiatry & Neurology Psychiatry | DX: F33.2 Major depressive disorder, recurrent severe without psychotic features (principal); F41.1 Generalized anxiety disorder | CPT/HCPCS: 99213 ==

== ENCOUNTER 2021-02-16 09:49 | Outpatient (CLI) | payer MEDICARE, OTHER, SELFPAY ==
[2021-02-16 10:16] LABS: Basophils % 0.5 %; Eosinophils # 0.2 10^3/uL (0.0-0.8); Eosinophils % 3.8 %; Hematocrit 41.3 % (42.0-52.0); Hemoglobin 13.8 g/dL (11.7-16.6); Lymphocytes # 1.8 10^3/uL (0.8-4.8); Lymphocytes % 32.6 %; Mean Corpuscular HGB Conc 33.4 g/dL (30.0-36.0); Mean Corpuscular Hemoglobin 29.1 pg (28.0-34.0); Mean Corpuscular Volume 87.1 fl (80-94); Monocytes # 0.5 10^3/uL (0.2-0.9); Monocytes % 9.3 %; Neutrophils % 53.6 %; Nucleated Red Blood Cells % 0 %; Platelet Count 169 10^3/cmm (130-400); Red Blood Count 4.74 10^6/uL (4.1-5.3); Red Cell Distribution Width 13.2 % (12.1-15.1); White Blood Count 5.6 10^3/uL (4.0-10.0)
[2021-02-16 10:32] LABS: Alanine Aminotransferase 15 U/L (0-41); Albumin Level 3.9 g/dL (3.5-5.2); Alkaline Phosphatase 119 IU/L (40-130); Aspartate Amino Transferase 22 U/L (0-40); C Reactive Protein 7.8 mg/L (0.0-4.9); Total Bilirubin 0.4 mg/dL (0.15-1.2); Total Protein 6.9 g/dL (6.6-8.7)
== END 2021-02-16 09:50 | disposition home or self-care (01) ==
LOC: LAB 09:53
PROVIDERS: PCP Nurse Practitioner; Visit Provider Internal Medicine Rheumatology
DX: M05.9 Rheumatoid arthritis with rheumatoid factor, unspecified (principal); Z79.899 Other long term (current) drug therapy
CPT/HCPCS: 36415; 80076; 82565; 85025; 86140

== ENCOUNTER → 2021-02-21 12:59 | Outpatient (BNVA) | payer MEDICARE, OTHER, SELFPAY | PROVIDERS: PCP Nurse Practitioner; Visit Provider Internal Medicine Rheumatology | DX: M05.9 Rheumatoid arthritis with rheumatoid factor, unspecified (principal); Z79.899 Other long term (current) drug therapy; M15.9 Polyosteoarthritis, unspecified; M43.22 Fusion of spine, cervical region; Z51.81 Encounter for therapeutic drug level monitoring; Z85.72 Personal history of non-Hodgkin lymphomas; Z71.89 Other specified counseling; Z87.891 Personal history of nicotine dependence | CPT/HCPCS: 99214 ==

== ENCOUNTER → 2021-03-02 10:47 | Outpatient (BNVA) | payer MEDICARE, OTHER, SELFPAY | PROVIDERS: PCP Nurse Practitioner; Visit Provider Psychiatry & Neurology Psychiatry | DX: F33.2 Major depressive disorder, recurrent severe without psychotic features (principal); F41.1 Generalized anxiety disorder | CPT/HCPCS: 99214 ==

== ENCOUNTER 2021-03-16 09:57 | Outpatient (CLI) | payer MEDICARE, OTHER, SELFPAY ==
[2021-03-16 10:18] VITALS: BP 125/76; PULSE 65; RESP 18; TEMP 36.4; O2SAT 97
[2021-03-16 10:37] LABS: Basophils % 0.5 %; Eosinophils # 0.3 10^3/uL (0.0-0.8); Hematocrit 44.5 % (42.0-52.0); Hemoglobin 14.5 g/dL (11.7-16.6); Lymphocytes # 1.9 10^3/uL (0.8-4.8); Lymphocytes % 28.3 %; Mean Corpuscular HGB Conc 32.6 g/dL (30.0-36.0); Mean Corpuscular Hemoglobin 29.4 pg (28.0-34.0); Mean Corpuscular Volume 90.3 fl (80-94); Mean Platelet Volume 9.2 fL (7.4-10.4); Monocytes # 0.6 10^3/uL (0.2-0.9); Monocytes % 8.7 %; Neutrophils # 3.82 10^3/uL (1.8-7.7); Neutrophils % 58.3 %; Nucleated Red Blood Cells % 0 %; Platelet Count 184 10^3/cmm (130-400); Red Blood Count 4.93 10^6/uL (4.1-5.3); Red Cell Distribution Width 13.2 % (12.1-15.1); White Blood Count 6.5 10^3/uL (4.0-10.0)
[2021-03-16] MEDS: sodium chloride 0.9% 250 ML 50 ML IV (10:56)
[2021-03-16] MEDS: acetaminophen 325 mg Tablet 650 MG PO (10:56)
[2021-03-16] MEDS: diphenhydrAMINE 50 mg/mL SDV 1mL IV (10:57)
[2021-03-16 11:00] LABS: Alanine Aminotransferase 11 U/L (0-41); Albumin Level 4.2 g/dL (3.5-5.2); Alkaline Phosphatase 121 IU/L (40-130); Aspartate Amino Transferase 22 U/L (0-40); C Reactive Protein 3.6 mg/L (0.0-4.9); Globulin 3.3 g/dL (1.3-4.6); Total Bilirubin 0.4 mg/dL (0.15-1.2); Total Protein 7.5 g/dL (6.6-8.7)
[2021-03-16] MEDS: rituximab 1,000 MG in sodium chloride 0.9% 250 ML, primary tubing onc 1 EACH 90 MG IV (11:03)
[2021-03-16 11:26] LABS: Erythrocyte Sedimentation Rate 24 mm/hr (0-10)
[2021-03-16 11:30] VITALS: BP 151/81; PULSE 57; RESP 18; TEMP 36.2; O2SAT 97
[2021-03-16 11:58] VITALS: BP 147/81; PULSE 58; RESP 18; TEMP 36.5; O2SAT 95
[2021-03-16 13:04] VITALS: BP 151/85; PULSE 63; RESP 18; TEMP 36.4; O2SAT 98
== END 2021-03-16 09:58 | disposition home or self-care (01) ==
LOC: ONCMED 09:59
PROVIDERS: PCP Nurse Practitioner; Referring Provider Internal Medicine Rheumatology; Visit Provider Internal Medicine Rheumatology
DX: M05.79 Rheumatoid arthritis with rheumatoid factor of multiple sites without organ or systems involvement (principal); Z79.899 Other long term (current) drug therapy
CPT/HCPCS: 80076; 82565; 85025; 85651; 86140; 96365; 96366; 96375; J1200; J2930; J7050; J9312

== ENCOUNTER 2021-03-30 09:12 | Outpatient (CLI) | payer MEDICARE, OTHER, SELFPAY ==
[2021-03-30 09:25] VITALS: BP 134/78; PULSE 66; RESP 16; TEMP 36.9; O2SAT 99
[2021-03-30] MEDS: acetaminophen 325 mg Tablet 650 MG PO (09:43)
[2021-03-30] MEDS: sodium chloride 0.9% 250 ML 50 ML IV (09:45)
[2021-03-30] MEDS: diphenhydrAMINE 50 mg/mL SDV 1mL IVP (09:48)
[2021-03-30] MEDS: rituximab 1,000 MG in sodium chloride 0.9% 250 ML, primary tubing onc 1 EACH 90 MG IV (09:57)
[2021-03-30 10:25] VITALS: BP 145/81; PULSE 61; RESP 16; TEMP 37.1; O2SAT 97
[2021-03-30 10:53] VITALS: BP 145/82; PULSE 61; RESP 16; TEMP 36.8; O2SAT 97
[2021-03-30 12:05] VITALS: BP 144/77; PULSE 70; RESP 16; TEMP 37.1; O2SAT 99
== END 2021-03-30 09:13 | disposition home or self-care (01) ==
PROVIDERS: PCP Nurse Practitioner; Referring Provider Internal Medicine Rheumatology; Visit Provider Internal Medicine Rheumatology
DX: M05.79 Rheumatoid arthritis with rheumatoid factor of multiple sites without organ or systems involvement (principal)
CPT/HCPCS: 96365; 96366; 96375; J1200; J2930; J7050; J9312

== ENCOUNTER 2021-04-25 09:13 | Emergency (ER) | payer MEDICARE, OTHER, SELFPAY ==
[2021-04-25 09:29] VITALS: BP 164/92; PULSE 77; RESP 18; TEMP 37; O2SAT 97; BMI 23.6
[2021-04-25 09:41] LABS: Add Urine Microscopic? NO; Basophils % 0.8 %; Charge for UA Resulting for Rev; Eosinophils # 0.2 10^3/uL (0.0-0.8); Eosinophils % 3.5 %; Hematocrit 42.7 % (42.0-52.0); Lymphocytes # 1.4 10^3/uL (0.8-4.8); Lymphocytes % 27.6 %; Mean Corpuscular HGB Conc 32.8 g/dL (30.0-36.0); Mean Corpuscular Hemoglobin 29.9 pg (28.0-34.0); Mean Platelet Volume 9.6 fL (7.4-10.4); Monocytes # 0.6 10^3/uL (0.2-0.9); Monocytes % 12.9 %; Nucleated Red Blood Cells % 0 %; Platelet Count 174 10^3/cmm (130-400); Red Blood Count 4.69 10^6/uL (4.1-5.3); Red Cell Distribution Width 13.1 % (12.1-15.1); White Blood Count 4.9 10^3/uL (4.0-10.0)
[2021-04-25 09:48] LABS: Bilirubin Urine Neg (Negative); Blood Urine Neg (Negative); Glucose Urine UA Norm (Normal); Ketones Urine Negative (Negative); Leukocyte Esterase Urine Negative (Negative); Nitrate Urine Negative (Negative); Protein Urine Neg (Negative); Urine Appearance Clear (CLEAR); Urine Color Yellow (Yellow); Urobilinogen Urine Norm (Negative); pH Urine 7 (5-7)
--- NOTE | 2021-04-25 09:57 | CT_ITS ---
WS: [id number] CT ABDOMEN AND PELVIS WITH CONTRAST HISTORY: Abdominal pain, diarrhea, LEFT lower quadrant pain. TECHNIQUE: Imaging performed of the abdomen and pelvis with IV contrast. Single phase imaging of the abdomen. Coronal and sagittal reformats are submitted. All CT scans at [facility] use at [address] one of these dose optimization techniques: automated exposure control; mA and/or kV adjustment per patient size (includes targeted exams where dose is matched to clinical indication); or iterative re construction. IV CONTRAST: Omnipaque 300; 95 mL IV. Oral contrast: No DLP: 1251.19 mGy.cm COMPARISON: 09/14/2016 Lower thorax: Lung bases are clear. Heart is normal size. No hiatal hernia. Liver/biliary system: Normal size with no intrahepatic dilatation. Gallbladder: Normally distended gallbladder. Numerous stones are present in the dependent gallbladder . No adjacent inflammation. No wall thickening. Normal common bile duct. Pancreas: Pancreas is very similar in appearance to the prior study. There is a 3 mm calcification ne ar the pancreatic head, posteriorly which was present on the prior study. This is not within the duct . The pancreatic duct is not dilated. Spleen: Normal size spleen. No mass or infarct. Adrenal glands: Normal. Right kidney: Mild atrophy and cortical thinning. There are a few small hypodensities which are too s mall to characterize. No renal obstruction. Left kidney: Mild atrophy and cortical thinning. 2 small to characterize hypodensities. There is an a dditional cyst posteriorly in the mid kidney measuring 1.8 cm. No obstruction. Aorta: Atherosclerotic changes are moderate throughout the aorta. Lymphadenopathy: None. There are small calcifications in the central mesentery which may be due to tr eated lymphoma. Free fluid: None. GI tract: Normally distended stomach. No small bowel obstruction. There are numerous diverticula in t he descending and sigmoid colon. No evidence for acute diverticulitis. There is increased fat surroun ding the sigmoid. Appendix is not identified. Abdominal wall: Unremarkable abdominal wall. No hernia. Pelvis: No free fluid or adenopathy. Well-distended urinary bladder. Prostate gland is enlarged and h eterogeneous encroaching into the bladder. Prostate measures 3.5 x 5.4 and extends over a length of 5 .8 cm. No adjacent adenopathy. Bones: Severe degenerative changes throughout the lumbar spine. Several facet joints are fused with a nkylosis across several disc spaces. Advanced degenerative changes at the hips. No acute fractures. CT/CT abdomen pelvis w con* [id number] IMPRESSION: 1. No acute abdominal or pelvic abnormalities. 2. Cholelithiasis without acute cholecystitis. 3. No renal obstruction. 4. Mild atherosclerosis aorta. 5. Sigmoid diverticulosis without acute diverticulitis. 6. Moderate prostate enlargement and heterogeneity.
--- NOTE | 2021-04-25 09:57 | ED_ITS ---
Documented by User: ALINE Valdes 04/25/21 16:51 HPI - Abdominal Pain General: Chief Complaint: Abdominal Pain Stated Complaint: abd pain Time Seen by Provider: 04/25/21 09:31 History of Present Illness: Patient is an 80-year-old male comes to the ED with abdominal pain and diarrhea. Patient said he has been having the symptoms now for the past 2 to 3 weeks. Abdominal pain comes and goes and he will have days where he has minimal to no abdominal pain. Currently he rates his abdominal pain a 5 out of 10. Its located on the left side of the abdomen. He notices pain worsens sometimes after he eats. Patient also describes having diarrhea that looks yellow and white. Episodes of diarrhea occur 1 maybe 2 times a day at the most. Over the past couple weeks he also has had days where he does not have any diarrhea at all. Endorses having a good appetite.Denies any nausea, vomiting, fever, chills, dysuria, hematuria. Associated Symptoms: Reports diarrhea; Denies chills, constipation, dysuria, fever(s), hematochezia, hematuria, nausea and vomiting Review of Systems Const: Denies: fever(s), chills or fatigue Eyes: Denies: change in vision or eye discomfort ENMT: Denies: throat pain, odynophagia, nasal discharge or nasal congestion Card: Denies: chest pain, palpitations, edema, swelling of feet/ankles, dyspnea on exertion or orthopnea Resp: Denies: dyspnea, productive cough or non-productive cough GI: Reports: abdominal pain and diarrhea; Denies: nausea, vomiting, constipation or hematochezia : Denies: flank pain, difficulty urinating, dysuria or hematuria Musc: Denies: neck pain, back pain or extremity swelling Skin/Breast: Denies: rash or new lesions Neuro: Denies: headache(s), numbness in extremities or weakness in extremities PFS ED PFSH: Medical History Diverticulosis DJD (degenerative joint disease) of cervical spine Elevated PSA Chronically elevated PSA with normal feeling prostate. Elected conservative observation over biopsy due to age and perceived low risk. Encounter for monitoring rituximab therapy High risk medication use History of left inguinal hernia Hx of lymphoma Immunization counseling Lymphoma pt said due to enbrel..tx at [facility] Rheumatoid arthritis Seropositive rheumatoid arthritis Status post extracorporeal shock wave therapy Urolithiasis Surgical History History of hernia surgery History of oral surgery Status post surgery of both feet Family History Father , at age 58-[place] No problems noted. Mother Eye disorder Denies family history of Anesthesia complication Bleeding disorder Social History Smoking and tobacco status: former smoker Quit status (tobacco): has quit using tobacco Year quit tobacco: 1964 Second hand smoke exposure: No Alcohol intake: never Marital status: Current occupational status: retired History of recent travel: No Physical Exam Const: COMMON NORMALS: patient oriented x3, healthy appearing and alert GENERAL APPEARANCE: cooperative and comfortable HENMT: COMMON NORMALS: normocephalic HEAD & SCALP: normocephalic MOUTH: Normal oral and palatal mucosa present THROAT: posterior oropharynx normal and uvula midline Eye: COMMON NORMALS: Equal, round and reactive pupils present and conjunctivae normal CONJUNCTIVA: Yes conjunctivae normal PUPIL: Yes Equal, round and reactive pupils present Neck/C-Spine: COMMON NORMALS: supple GENERAL: Yes normal visual inspection Resp: COMMON NORMALS: normal respiratory effort, No retractions, No use of accessory muscles and clear to auscultation bilaterally AUSCULTATION: clear to auscultation bilaterally Cardio: COMMON NORMALS: regular rate, regular rhythm, S1 normal heart sound present, S2 normal heart sound present, No gallops present (Cardio), No clicks present (Cardio), No murmurs present (Cardio) and Peripheral pulses 2+ throughout RATE: regular rate RHYTHM: regular rhythm HEART SOUNDS: S1 normal heart sound present and S2 normal heart sound present PERIPHERAL PULSES: Peripheral pulses 2+ throughout GI: COMMON NORMALS: Normal to inspection, nondistended, normoactive bowel sounds present, Soft to palpation and no masses PALPATION: Yes Soft to palpation and Yes Tenderness to palpation present (GI) Details: LLQ : COMMON NORMALS: Yes no CVA tenderness BLADDER/KIDNEY EXAM: Yes no CVA tenderness Back/Pelvis: COMMON NORMALS: no CVA tenderness Extremity: COMMON NORMALS: normal to inspection and no pedal edema Neuro: COMMON NORMALS: patient oriented x3 SENSORIUM/ORIENTATION: Yes alert GAIT: Yes Normal gait present Skin: GENERAL SKIN EXAM: dry skin Course Vital Signs: Vital signs: Vital Signs Temperature 98.6 F 04/25/21 09:29 Pulse Rate 71 04/25/21 12:37 Respiratory Rate 16 04/25/21 12:37 Blood Pressure 149/79 04/25/21 12:37 Pulse Oximetry 98 04/25/21 12:37 MDM - Abdominal Pain Medical Decision Making Patient is an 80-year-old male comes to the ED with abdominal pain. Pain is generalized and mostly in the left side of abdomen. Denies any other symptoms. Vital stable. Patient has some left lower quadrant abdominal tenderness. CBC and CMP were unremarkable. Lipase normal and UA showed no signs of any UTI or blood. CT of abdomen pelvis showed no acute findings but did note some moderate prostate enlargement. Patient was diagnosed with abdominal pain and prostate enlargement. Patient was needing to get a referral to a PCP to get established with a new one. I also placed a referral for patient to be seen by Dr. Mondragon to review CT findings and prostate enlargement. Patient says he has an appointment with Dr. Mondragon in July, but an earlier follow-up appointment is recommended. Patient was discharged home and told case management should be contacting them to set up appointments for Dr. Mondragon and new PCP. Return to ED precautions given. Patient understood agree with plan. Lab Data I reviewed the patient's lab results. : 04/25/21 09:35 04/25/21 09:35 Labs/Radiology: Radiology Impressions Abdomen/Pelvis CT 04/25/21 09:57 IMPRESSION: 1. No acute abdominal or pelvic abnormalities. 2. Cholelithiasis without acute cholecystitis. 3. No renal obstruction. 4. Mild atherosclerosis aorta. 5. Sigmoid diverticulosis without acute diverticulitis. 6. Moderate prostate enlargement and heterogeneity. Laboratory Results WBC 4.9 10^3/uL (4.0-10.0) 04/25/21 09:35 RBC 4.69 10^6/uL (4.1-5.3) 04/25/21 09:35 Hgb 14.0 g/dL (11.7-16.6) 04/25/21 09:35 Hct 42.7 % (42.0-52.0) 04/25/21 09:35 MCV 91.0 fl (80-94) 04/25/21 09:35 MCH 29.9 pg (28.0-34.0) 04/25/21 09:35 MCHC 32.8 g/dL (30.0-36.0) 04/25/21 09:35 RDW 13.1 % (12.1-15.1) 04/25/21 09:35 Plt Count 174 10^3/cmm (130-400) 04/25/21 09:35 MPV 9.6 fL (7.4-10.4) 04/25/21 09:35 Neut % (Auto) 55.0 % 04/25/21 09:35 Lymph % (Auto) 27.6 % 04/25/21 09:35 [place] % (Auto) 12.9 % 04/25/21 09:35 Eos % (Auto) 3.5 % 04/25/21 09:35 Baso % (Auto) 0.8 % 04/25/21 09:35 Neut # (Auto) 2.70 10^3/uL (1.8-7.7) 04/25/21 09:35 Lymph # (Auto) 1.4 10^3/uL (0.8-4.8) 04/25/21 09:35 [place] # (Auto) 0.6 10^3/uL (0.2-0.9) 04/25/21 09:35 Eos # (Auto) 0.2 10^3/uL (0.0-0.8) 04/25/21 09:35 Baso # (Auto) 0.0 10^3/uL (0.0-0.1) 04/25/21 09:35 Nucleated RBC % (auto) 0 % 04/25/21 09:35 Nucleated RBCs # 0.0 /100WBC 04/25/21 09:35 Sodium 141 mmol/L (136-145) 04/25/21 09:35 Potassium 4.1 mmol/L (3.5-5.1) 04/25/21 09:35 Chloride 102 mmol/L (98-107) 04/25/21 09:35 Carbon Dioxide 30 mmol/L (22-29) H 04/25/21 09:35 Anion Gap 13.1 (5-19) 04/25/21 09:35 BUN 21 mg/dL (8-23) 04/25/21 09:35 Creatinine 1.1 mg/dL (0.7-1.2) 04/25/21 09:35 GFR Calculation Not Reportable 04/25/21 09:35 Glucose 127 mg/dL (65-115) H 04/25/21 09:35 Calculated Osmolality 297 mOsm/kg (285-295) H 04/25/21 09:35 Calcium 10.0 mg/dL (8.5-10.5) 04/25/21 09:35 Total Bilirubin 0.4 mg/dL (0.15-1.2) 04/25/21 09:35 AST 19 U/L (0-40) 04/25/21 09:35 ALT 9 U/L (0-41) 04/25/21 09:35 Alkaline Phosphatase 112 IU/L (40-130) 04/25/21 09:35 Total Protein 7.4 g/dL (6.6-8.7) 04/25/21 09:35 Albumin 4.2 g/dL (3.5-5.2) 04/25/21 09:35 Globulin 3.2 g/dL (1.3-4.6) 04/25/21 09:35 Lipase 43 U/L (13-60) 04/25/21 09:35 Urine Color Yellow (Yellow) 04/25/21 09:35 Urine Appearance Clear (CLEAR) 04/25/21 09:35 Urine pH 7 (5-7) 04/25/21 09:35 Ur Specific [place] 1.000 (1.005-1.030) L 04/25/21 09:35 Urine Protein Neg (Negative) 04/25/21 09:35 Urine Glucose (UA) Norm (Normal) 04/25/21 09:35 Urine Ketones Negative (Negative) 04/25/21 09:35 Urine Blood Neg (Negative) 04/25/21 09:35 Urine Nitrate Negative (Negative) 04/25/21 09:35 Urine Bilirubin Neg (Negative) 04/25/21 09:35 Urine Urobilinogen Norm mg/dL (Negative) 04/25/21 09:35 Ur Leukocyte Esterase Negative (Negative) 04/25/21 09:35 Discharge Plan Discharge Patient Disposition: Home Clinical Impression: Enlarged prostate Abdominal pain Qualifiers: Abdominal location: generalized Qualified Code(s): R10.84 - Generalized abdominal pain Condition: Stable Prescriptions: No Action omeprazole magnesium [Prilosec OTC] 20 mg tablet,delayed release (DR/EC) 20 mg PO DAILY 0RF Rituxan 10 mg/mL concentrate IV .Q 6 Months 0RF tamsulosin 0.4 mg capsule 0.4 mg PO DAILY@2100 0RF metoprolol succinate 25 mg tablet extended release 24 hr 12.5 mg PO DAILY@0700 0RF diclofenac sodium 1 % gel 2 gm TOPICAL QID PRN (Reason: rheumatoid arthritis) Qty: 100 1RF Rx Instructions: apply to affected areas as needed calcium-vitamin D2 Tablet PO DAILY 0RF triamterene 50 mg capsule See Rx Instructions PO DAILY 0RF Rx Instructions: 25 mg PO daily; escitalopram oxalate [Lexapro] 20 mg tablet 20 mg PO DAILY Qty: 30 2RF gabapentin 300 mg capsule 300 mg PO TID Qty: 90 2RF mirtazapine 15 mg tablet 15 mg PO .HS Qty: 30 2RF Multivitamin 50 Plus Tablet 1 tab PO DAILY@0700 0RF Discharge Orders: Discharge ED (Routine); Ordered 04/25/21 Ordered By: Shaun Rajan Referrals: Gracia Ferrara APN [Primary Care Provider] - Discharge Diet: Advance as tolerated Discharge Activity: Increase activity as tolerated Patient Instructions: Abdominal Pain (ED) Activity Restrictions/Additional Instructions: Follow-up with medical provider as directed. Case management should be contacting you the next several days to set up an appointment with a primary care physician and an appointment with Dr. Mondragon. Continue taking home medications as previously prescribed. Return to the ER or your medical provider if condition worsens. Please read and understand discharge instructions. Thank you for choosing [facility] for your healthcare needs today. Please realize this is an emergency room and that we are providing you with a medical screening exam and this may not be complete and all inclusive of all the testing and or work up that you may need to determine your ailment or severity of your illness. It is very important that you follow up as instructed or that you return to the Emergency Department should you have concerns or if your condition changes or worsens in any way. Coding Level of Care Code ED Unishear Operator for Chg Fwd Exam Comprehensive Documented by User: Shemar Whitley DO 04/26/21 06:32 HPI - Abdominal Pain General: Chief Complaint: Abdominal Pain Stated Complaint: abd pain Time Seen by Provider: 04/25/21 09:31 PFSH ED PFSH: Medical History Diverticulosis DJD (degenerative joint disease) of cervical spine Elevated PSA Chronically elevated PSA with normal feeling prostate. Elected conservative observation over biopsy due to age and perceived low risk. Encounter for monitoring rituximab therapy High risk medication use History of left inguinal hernia Hx of lymphoma Immunization counseling Lymphoma pt said due to enbrel..tx at [facility] Rheumatoid arthritis Seropositive rheumatoid arthritis Status post extracorporeal shock wave therapy Urolithiasis Surgical History History of hernia surgery History of oral surgery Status post surgery of both feet Family History Father , at age 58-[place] No problems noted. Mother Eye disorder Denies family history of Anesthesia complication Bleeding disorder Social History Smoking and tobacco status: former smoker Quit status (tobacco): has quit using tobacco Year quit tobacco: 1965 Second hand smoke exposure: No Alcohol intake: never Marital status: Current occupational status: retired History of recent travel: No Course Vital Signs: Vital signs: Vital Signs Temperature 98.6 F 04/25/21 09:29 Pulse Rate 71 04/25/21 12:37 Respiratory Rate 16 04/25/21 12:37 Blood Pressure 149/79 04/25/21 12:37 Pulse Oximetry 98 04/25/21 12:37 MDM - Abdominal Pain Medical Decision Making Patient is an 80-year-old male comes to the ED with abdominal pain. Pain is generalized and mostly in the left side of abdomen. Denies any other symptoms. Vital stable. Patient has some left lower quadrant abdominal tenderness. CBC and CMP were unremarkable. Lipase normal and UA showed no signs of any UTI or blood. CT of abdomen pelvis showed no acute findings but did note some moderate prostate enlargement. Patient was diagnosed with abdominal pain and prostate enlargement. Patient was needing to get a referral to a PCP to get established with a new one. I also placed a referral for patient to be seen by Dr. Mondragon to review CT findings and prostate enlargement. Patient says he has an appointment with Dr. Mondragon in July, but an earlier follow-up appointment is recommended. Patient was discharged home and told case management should be c ontacting them to set up appointments for Dr. Mondragon and new PCP. Return to ED precautions given. Patient understood agree with plan. Chart reviewed and patient discussed with midlevel. Agree with assessment and plan. Review Lab Data : 04/25/21 09:35 04/25/21 09:35 Labs/Radiology: Radiology Impressions Abdomen/Pelvis CT 04/25/21 09:57 IMPRESSION: 1. No acute abdominal or pelvic abnormalities. 2. Cholelithiasis without acute cholecystitis. 3. No renal obstruction. 4. Mild atherosclerosis aorta. 5. Sigmoid diverticulosis without acute diverticulitis. 6. Moderate prostate enlargement and heterogeneity. Laboratory Results WBC 4.9 10^3/uL (4.0-10.0) 04/25/21 09:35 RBC 4.69 10^6/uL (4.1-5.3) 04/25/21 09:35 Hgb 14.0 g/dL (11.7-16.6) 04/25/21 09:35 Hct 42.7 % (42.0-52.0) 04/25/21 09:35 MCV 91.0 fl (80-94) 04/25/21 09:35 MCH 29.9 pg (28.0-34.0) 04/25/21 09:35 MCHC 32.8 g/dL (30.0-36.0) 04/25/21 09:35 RDW 13.1 % (12.1-15.1) 04/25/21 09:35 Plt Count 174 10^3/cmm (130-400) 04/25/21 09:35 MPV 9.6 fL (7.4-10.4) 04/25/21 09:35 Neut % (Auto) 55.0 % 04/25/21 09:35 Lymph % (Auto) 27.6 % 04/25/21 09:35 [place] % (Auto) 12.9 % 04/25/21 09:35 Eos % (Auto) 3.5 % 04/25/21 09:35 Baso % (Auto) 0.8 % 04/25/21 09:35 Neut # (Auto) 2.70 10^3/uL (1.8-7.7) 04/25/21 09:35 Lymph # (Auto) 1.4 10^3/uL (0.8-4.8) 04/25/21 09:35 [place] # (Auto) 0.6 10^3/uL (0.2-0.9) 04/25/21 09:35 Eos # (Auto) 0.2 10^3/uL (0.0-0.8) 04/25/21 09:35 Baso # (Auto) 0.0 10^3/uL (0.0-0.1) 04/25/21 09:35 Nucleated RBC % (auto) 0 % 04/25/21 09:35 Nucleated RBCs # 0.0 /100WBC 04/25/21 09:35 Sodium 141 mmol/L (136-145) 04/25/21 09:35 Potassium 4.1 mmol/L (3.5-5.1) 04/25/21 09:35 Chloride 102 mmol/L (98-107) 04/25/21 09:35 Carbon Dioxide 30 mmol/L (22-29) H 04/25/21 09:35 Anion Gap 13.1 (5-19) 04/25/21 09:35 BUN 21 mg/dL (8-23) 04/25/21 09:35 Creatinine 1.1 mg/dL (0.7-1.2) 04/25/21 09:35 GFR Calculation Not Reportable 04/25/21 09:35 Glucose 127 mg/dL (65-115) H 04/25/21 09:35 Calculated Osmolality 297 mOsm/kg (285-295) H 04/25/21 09:35 Calcium 10.0 mg/dL (8.5-10.5) 04/25/21 09:35 Total Bilirubin 0.4 mg/dL (0.15-1.2) 04/25/21 09:35 AST 19 U/L (0-40) 04/25/21 09:35 ALT 9 U/L (0-41) 04/25/21 09:35 Alkaline Phosphatase 112 IU/L (40-130) 04/25/21 09:35 Total Protein 7.4 g/dL (6.6-8.7) 04/25/21 09:35 Albumin 4.2 g/dL (3.5-5.2) 04/25/21 09:35 Globulin 3.2 g/dL (1.3-4.6) 04/25/21 09:35 Lipase 43 U/L (13-60) 04/25/21 09:35 Urine Color Yellow (Yellow) 04/25/21 09:35 Urine Appearance Clear (CLEAR) 04/25/21 09:35 Urine pH 7 (5-7) 04/25/21 09:35 Ur Specific [place] 1.000 (1.005-1.030) L 04/25/21 09:35 Urine Protein Neg (Negative) 04/25/21 09:35 Urine Glucose (UA) Norm (Normal) 04/25/21 09:35 Urine Ketones Negative (Negative) 04/25/21 09:35 Urine Blood Neg (Negative) 04/25/21 09:35 Urine Nitrate Negative (Negative) 04/25/21 09:35 Urine Bilirubin Neg (Negative) 04/25/21 09:35 Urine Urobilinogen Norm mg/dL (Negative) 04/25/21 09:35 Ur Leukocyte Esterase Negative (Negative) 04/25/21 09:35 Discharge Plan Discharge Patient Disposition: Home Clinical Impression: Enlarged prostate Abdominal pain Qualifiers: Abdominal location: generalized Qualified Code(s): R10.84 - Generalized abdominal pain Condition: Stable Prescriptions: No Action omeprazole magnesium [Prilosec OTC] 20 mg tablet,delayed release (DR/EC) 20 mg PO DAILY 0RF Rituxan 10 mg/mL concentrate IV .Q 6 Months 0RF tamsulosin 0.4 mg capsule 0.4 mg PO DAILY@2100 0RF metoprolol succinate 25 mg tablet extended release 24 hr 12.5 mg PO DAILY@0700 0RF diclofenac sodium 1 % gel 2 gm TOPICAL QID PRN (Reason: rheumatoid arthritis) Qty: 100 1RF Rx Instructions: apply to affected areas as needed calcium-vitamin D2 Tablet PO DAILY 0RF triamterene 50 mg capsule See Rx Instructions PO DAILY 0RF Rx Instructions: 25 mg PO daily; escitalopram oxalate [Lexapro] 20 mg tablet 20 mg PO DAILY Qty: 30 2RF gabapentin 300 mg capsule 300 mg PO TID Qty: 90 2RF mirtazapine 15 mg tablet 15 mg PO .HS Qty: 30 2RF Multivitamin 50 Plus Tablet 1 tab PO DAILY@0700 0RF Discharge Orders: Discharge ED (Routine); Ordered 04/25/21 Ordered By: Shaun Rajan Referrals: Gracia Ferrara APN [Primary Care Provider] - Discharge Diet: Advance as tolerated Discharge Activity: Increase activity as tolerated Patient Instructions: Abdominal Pain (ED) Activity Restrictions/Additional Instructions: Follow-up with medical provider as directed. Case management should be contacting you the next several days to set up an appointment with a primary care physician and an appointment with Dr. Mondragon. Continue taking home medications as previously prescribed. Return to the ER or your medical provider if condition worsens. Please read and understand discharge instructions. Thank you for choosing [facility] for your healthcare needs today. Shayan limon realize this is an emergency room and that we are providing you with a medical screening exam and this may not be complete and all inclusive of all the testing and or work up that you may need to determine your ailment or severity of your illness. It is very important that you follow up as instructed or that you return to the Emergency Department should you have concerns or if your condition changes or worsens in any way. Coding Level of Care Code ED Unishear Operator for Emily Fwbette Exam Comprehensive
[2021-04-25 09:59] LABS: Alanine Aminotransferase 9 U/L (0-41); Albumin Level 4.2 g/dL (3.5-5.2); Alkaline Phosphatase 112 IU/L (40-130); Anion Gap 13.1 (5-19); Aspartate Amino Transferase 19 U/L (0-40); Blood Urea Nitrogen 21 mg/dL (8-23); Carbon Dioxide 30 mmol/L (22-29); Chloride 102 mmol/L (98-107); Globulin 3.2 g/dL (1.3-4.6); Glucose 127 mg/dL (65-115); Lipase 43 U/L (13-60); Osmolality Calculated 297 mOsm/kg (285-295); Potassium 4.1 mmol/L (3.5-5.1); Sodium 141 mmol/L (136-145); Total Bilirubin 0.4 mg/dL (0.15-1.2); Total Protein 7.4 g/dL (6.6-8.7)
[2021-04-25 10:24] VITALS: BP 126/67; PULSE 71; RESP 16; O2SAT 98
[2021-04-25] MEDS: iodixanol 320 mg/mL 100mL Btl IV (11:43)
[2021-04-25 12:37] VITALS: BP 149/79; PULSE 71; RESP 16; O2SAT 98
--- NOTE | 2021-05-01 11:18 | DCPLANNER ---
Addendum entered by Fifi Danielson 08/06/21 06:19: Patient had a follow up appointment scheduled for 08.01.[address] Mondragon at urology - patient did attend appointment. Addendum entered by Fifi Danielson 05/08/21 09:50: Patient has a follow up appointment scheduled for Sunday, August 01, 2021 at 10:[address] Mondragon. Clinic will call patient with appointment information. Original Note: maintenance and engineering manager had message to schedule a follow up appointment for patient with Dr. Mondragon. maintenance and engineering manager emailed patients information to Milagros Ingram in the office of Dr. Mondragon. Patients information will be printed and reviewed. Clinic will call patient with appointment information.
--- NOTE | 2021-05-10 12:53 | DCPLANNER ---
clinical outcomes manager had message to speak with patient about getting established with a primary care physician. clinical outcomes manager unable to speak with patient or leave a voicemail at this time.
== END 2021-04-25 12:42 | disposition home or self-care (01) ==
PROVIDERS: Emergency Provider Physician Assistant; PCP Nurse Practitioner
DX: R10.84 Generalized abdominal pain (principal); N40.0 Benign prostatic hyperplasia without lower urinary tract symptoms; Z85.72 Personal history of non-Hodgkin lymphomas; Z87.891 Personal history of nicotine dependence
CPT/HCPCS: 74177; 80053; 81003; 83690; 85025; 99283; Q9967

== ENCOUNTER 2021-08-01 09:09 | Outpatient (CLI) | payer MEDICARE, OTHER, SELFPAY | END 2021-08-01 09:10 | disposition home or self-care (01) | LOC: LAB 09:11 | PROVIDERS: PCP Nurse Practitioner; Visit Provider Urology | DX: R97.20 Elevated prostate specific antigen [PSA] (principal) | CPT/HCPCS: 36415; 81003; 84153 ==

== ENCOUNTER → 2021-08-28 12:58 | Outpatient (BNVA) | payer MEDICARE, OTHER, SELFPAY | PROVIDERS: PCP Nurse Practitioner Family; Visit Provider Internal Medicine Rheumatology | DX: M05.9 Rheumatoid arthritis with rheumatoid factor, unspecified (principal); M15.9 Polyosteoarthritis, unspecified; M43.22 Fusion of spine, cervical region; Z79.899 Other long term (current) drug therapy; Z85.72 Personal history of non-Hodgkin lymphomas; Z92.21 Personal history of antineoplastic chemotherapy; Z71.89 Other specified counseling | CPT/HCPCS: 36415; 80076; 82565; 85025; 86140; 99204 ==

== ENCOUNTER 2021-09-28 09:34 | Outpatient (CLI) | payer MEDICARE, OTHER, SELFPAY ==
[2021-09-28 09:46] VITALS: BP 134/69; PULSE 59; RESP 16; TEMP 36.7; O2SAT 99
[2021-09-28 10:18] LABS: Basophils % 0.7 %; Eosinophils # 0.4 10^3/uL (0.0-0.8); Eosinophils % 6.7 %; Hematocrit 41.4 % (42.0-52.0); Hemoglobin 13.4 g/dL (11.7-16.6); Lymphocytes # 1.8 10^3/uL (0.8-4.8); Lymphocytes % 32.4 %; Mean Corpuscular HGB Conc 32.4 g/dL (30.0-36.0); Mean Corpuscular Hemoglobin 29.7 pg (28.0-34.0); Mean Corpuscular Volume 91.8 fl (80-94); Mean Platelet Volume 9.5 fL (7.4-10.4); Monocytes # 0.6 10^3/uL (0.2-0.9); Neutrophils # 2.76 10^3/uL (1.8-7.7); Nucleated Red Blood Cells % 0 %; Platelet Count 156 10^3/cmm (130-400); Red Blood Count 4.51 10^6/uL (4.1-5.3); Red Cell Distribution Width 13.1 % (12.1-15.1); White Blood Count 5.5 10^3/uL (4.0-10.0)
[2021-09-28] MEDS: acetaminophen 325 mg Tablet 650 MG PO (10:21)
[2021-09-28] MEDS: sodium chloride 0.9% 250 ML 50 ML IV (10:21)
[2021-09-28] MEDS: diphenhydrAMINE 50 mg/mL SDV 1mL IVP (10:22)
[2021-09-28 10:24] LABS: Erythrocyte Sedimentation Rate 10 mm/hr (0-10)
[2021-09-28] MEDS: rituximab 1,000 MG in sodium chloride 0.9% 250 ML, primary tubing onc 1 EACH 37.5 MG IV (10:31)
[2021-09-28 10:45] LABS: Alanine Aminotransferase 9 U/L (0-41); Albumin Level 4.3 g/dL (3.5-5.2); Alkaline Phosphatase 108 IU/L (40-130); Aspartate Amino Transferase 19 U/L (0-40); C Reactive Protein 4.4 mg/L (0.0-4.9); Globulin 2.7 g/dL (1.3-4.6); Total Bilirubin 0.4 mg/dL (0.15-1.2)
[2021-09-28 11:03] VITALS: BP 138/78; PULSE 56; RESP 16; TEMP 36.6; O2SAT 97
[2021-09-28 11:46] VITALS: BP 143/63; PULSE 54; RESP 16; TEMP 36.7; O2SAT 98
[2021-09-28 13:10] VITALS: BP 138/75; PULSE 54; RESP 16; TEMP 36.7; O2SAT 99
[2021-09-28 13:47] VITALS: BP 125/69; PULSE 61; RESP 18; TEMP 36.6; O2SAT 97
== END 2021-09-28 09:35 | disposition home or self-care (01) ==
PROVIDERS: PCP Nurse Practitioner Family; Visit Provider Internal Medicine Rheumatology
DX: M06.9 Rheumatoid arthritis, unspecified (principal); Z79.899 Other long term (current) drug therapy
CPT/HCPCS: 80076; 82565; 85025; 85651; 86140; 96365; 96366; 96375; J1200; J2930; J7050; J9312

== ENCOUNTER 2021-10-12 08:39 | Outpatient (CLI) | payer MEDICARE, OTHER, SELFPAY ==
[2021-10-12 08:54] VITALS: BP 118/65; PULSE 67; RESP 18; TEMP 37.1; O2SAT 97
[2021-10-12] MEDS: sodium chloride 0.9% 250 ML 50 ML IV (09:16)
[2021-10-12] MEDS: acetaminophen 325 mg Tablet 650 MG PO (09:17)
[2021-10-12] MEDS: diphenhydrAMINE 50 mg/mL SDV 1mL IVP (09:19)
[2021-10-12] MEDS: rituximab 1,000 MG in sodium chloride 0.9% 250 ML, primary tubing onc 1 EACH 37.5 MG IV (09:28)
[2021-10-12 10:27] VITALS: BP 119/70; PULSE 58; RESP 16; TEMP 36.9; O2SAT 94
[2021-10-12 10:56] VITALS: BP 118/66; PULSE 57; RESP 16; TEMP 36.7; O2SAT 93
[2021-10-12 11:47] VITALS: BP 137/72; PULSE 56; RESP 16; TEMP 36.6; O2SAT 95
[2021-10-12 12:54] VITALS: BP 139/74; PULSE 67; RESP 18; TEMP 36.7; O2SAT 98
== END 2021-10-12 08:40 | disposition home or self-care (01) ==
PROVIDERS: PCP Nurse Practitioner Family; Visit Provider Internal Medicine Rheumatology
DX: M06.9 Rheumatoid arthritis, unspecified (principal)
CPT/HCPCS: 96365; 96366; 96375; J1200; J2930; J7050; J9312

== ENCOUNTER 2021-10-20 07:53 | Outpatient (CLI) | payer MEDICARE, OTHER, SELFPAY ==
--- NOTE | 2021-10-20 08:31 | USCV_ITS ---
Rafiq Crystal Age: 81 Gender: M : 1940 Exam Date: 10/20/2021 09:01 Ordering Phys: Rae Pinto NP Technologist: LIZ Exam Location: [facility] [place] Indication: ORTHOPNEA/COUGH BP: 121 / 74 HR: 57 Rhythm: Sinus Technical Quality: Adequate MEASUREMENTS (Male / Female) Normal Values 2D ECHO LV Diastolic Diameter PLAX 4.8 cm 4.2 - 5.9 / 3.9 - 5.3 cm LV Systolic Diameter PLAX 3.0 cm IVS Diastolic Thickness 1.1 cm 0.6 - 1.0 / 0.6 - 0.9 cm IVS Systolic Thickness 2.0 cm LVPW Diastolic Thickness 1.6 cm 0.6 - 1.0 / 0.6 - 0.9 cm LVPW Systolic Thickness 1.8 cm LVOT Diameter 2.0 cm LV Ejection Fraction 2D Teich 68.0 % LV Ejection Fraction MOD 2C 67.5 % LV Ejection Fraction 2C AL 68.5 % LA Diameter 3.0 cm LA Width 2.9 cm LA Height 4.0 cm RA Width 4.0 cm RA Height 4.7 cm Aorta at Sinotubular Diameter 2.8 cm IVC Diameter 1.6 cm M-MODE Aortic Annulus Diameter 2.9 cm LA Ao Ratio MM 0.9 MV E Point Septal Separation 0.3 cm DOPPLER AV Peak Velocity 134.0 cm/s LVOT Peak Velocity 100.0 cm/s AV Area Cont Eq vti 2.1 cm squared AV Area Cont Eq pk 2.3 cm squared MV Peak Velocity 115.0 cm/s MV Area PHT 2.4 cm squared Mitral E to A Ratio 0.9 MV E' Velocity 35.0 cm/s Mitral E to MV E' Ratio 6.8 Mitral E to LV E' Lateral Ratio 6.1 Mitral E to LV E' Septal Ratio 7.6 TR Peak Velocity 312.8 cm/s TR Peak Gradient 39.1 mmHg TR Mean Velocity 259.5 cm/s TR Mean Gradient 27.6 mmHg TR Velocity Time Integral 102.7 cm TV Peak E Velocity 45.0 cm/s Right Atrial Pressure 3.0 mmHg Pulmonary Artery Systolic Pressu 42.1 mmHg PV Peak Velocity 87.0 cm/s RV Acceleration Time 0.1 s RV Ejection Time 0.3 s RV AcT/ET 0.5 FINDINGS Left Ventricle Normal left ventricular size, systolic function and wall thickness, with no regional wall motion abnormalities. Left ventricular ejection fraction is estimated at 65 %. Normal diastolic function. Right Ventricle Normal right ventricular size and systolic function. RVSP could not be calculated due to incomplete tricuspid regurgitation velocity profile. Right Atrium Normal right atrial size. Left Atrium Normal left atrial size. Mitral Valve Structurally normal mitral valve. No mitral valve stenosis. Trace mitral valve regurgitation. Aortic Valve Aortic valve not well visualized. No aortic valve stenosis. Mild aortic valve regurgitation. Tricuspid Valve Structurally normal tricuspid valve. Trace tricuspid valve regurgitation. Pulmonic Valve Pulmonic valve not well visualized. No pulmonary valve stenosis. Trace pulmonary valve regurgitation. Pericardium No pericardial effusion. Aorta Normal size aortic root and proximal ascending aorta. IVC Normal IVC dimension with >50% respiratory change of the inferior vena cava. CONCLUSIONS 1. Normal left ventricular size, systolic function and wall thickness, with no regional wall motion abnormalities. Left ventricular ejection fraction is estimated at 65 %. Normal diastolic function. 2. Normal right ventricular size and systolic function. 3. Mild aortic valve regurgitation. 4. When compared to previous study dated 05/28/2013, there may not have been any significant change. Molly Singer MD (Electronically Signed) Final Date: 25 October 2021 18:02 S
== END 2021-10-20 07:54 | disposition home or self-care (01) ==
LOC: RAD 07:55
PROVIDERS: PCP Nurse Practitioner Family; Visit Provider Nurse Practitioner Family
DX: R05.9 Cough, unspecified (principal); R06.01 Orthopnea; I35.1 Nonrheumatic aortic (valve) insufficiency
CPT/HCPCS: 93306

== ENCOUNTER 2021-11-30 06:28 | Outpatient (CLI) | payer MEDICARE, OTHER, SELFPAY ==
--- NOTE | 2021-11-30 06:46 | ECG_ITS ---
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 Interpretive Statements NAME OF STUDY: LEXISCAN SESTAMIBI STRESS TEST INDICATION: HTN, PROCEDURE: At the baseline, the EKG revealed sinus bradycardia with a rate of 54 bpm. The baseline heart was 54 bpm with a blood pressue of 158/78 mm of Hg. Lexiscan was infused over a period of 20 seconds. A total of 0.4 milligrams of Lexiscan was infused. The stress phase was continued for a total of 5 minutes. Heart rate at the end of the stress phase was 71 bpm with a blood pressure 117/69 mm of Hg. The EKG at the peak infusion revealed no significant changes. Sestamibi was injected 20 seconds after the Lexiscan infusion. Heart rate at the end of the recovery phase was 71 bpm with a blood pressure of 170/69 mm of Hg. CONCLUSION: 1. No significant EKG changes with the LexiScan infusion 2. No LexiScan induced chest pain or cardiac arrhythmia 3. Normal blood pressure and heart rate response 4. Sestamibi/sestamibi perfusion scan pending; see separate report. Electronically Signed On 12-01-2021 16:22:09 CDT by Dee Nelson M.D. [email or web address]
--- NOTE | 2021-11-30 06:47 | NMCV_ITS ---
NM hayley perf SPECT r/s* [id number] Rafiq Crystal Age: 81 Gender: M : 1940 Exam Date: 11/30/2021 07:43 Ordering Phys: Rae Pinto NP Technologist: LEROY Gonzalez Exam Location: [facility] Indications: HYPERTENSION STRESS TEST [facility] IMAGE PROTOCOL Rest/Stress 1 Lexiscan Day Radiopharmaceutical Dose (mCi) Administration Site Administered by Rest: Tc-99m 10.8 IV LEROY Frias Sestamibi Stress:Tc-99m 32.4 IV LEROY Frias Sestamibi Rest: 30-Nov-2021 60 Discovery 630 Stress: 30-Nov-2021 30 Discovery 630 0.4mg Lexiscan. Images obtained in supine and prone position. SPECT RESULTS Technical Quality: Excellent Raw Data Analysis: Normal Image Corrections: No attenuation or motion correction applied Summed Stress Score: 9 Summed Rest Score: 4 Summed Difference Score: 5 PERFUSION FINDINGS Moderate area of moderately decreased tracer uptake was noted in the basal and mid inferolateral, mid anterolateral and apical lateral regions. Significant reversibility was noted in these regions at rest. Small area of decreased tracer uptake also was noted in the basal inferior wall region with some reversibility. FUNCTIONAL RESULTS (calculated via Gated SPECT) Stress Image LV EF (%): 61 Stress EDV (mL):102 TID: 1.01 Stress ESV (mL):40 FUNCTIONAL FINDINGS: Segmental wall motion analysis revealing no gross wall motion normalities. IMPRESSIONS 1. Myocardial perfusion imaging revealing moderate area of moderately decreased tracer uptake in the inferolateral, anterolateral and apical lateral regions with significant reversibility, suggesting myocardial scarring with ischemia in the distribution of the left circumflex artery. A small area of reversible defect in the basal inferior wall region, suggestive of ischemia in the distribution of the right coronary artery. 2. Normal LV ejection fraction 61%. 3. LV wall motion analysis revealing no gross wall motion abnormalities 4. Normal LV volume Compared to the study from 08/25/2018, ischemic burden appears to have increased significantly Dr Dee Nelson MD [facility] (Electronically Signed) Final Date: 30 November 2021 16:38 S
[2021-11-30 07:09] VITALS: BMI 25.4
[2021-11-30] MEDS: regadenoson 0.4 Mg/5 ml Syringe IVP (08:13)
[2021-11-30 08:33] VITALS: BP 117/68; PULSE 69
== END 2021-11-30 06:29 | disposition home or self-care (01) ==
PROVIDERS: PCP Nurse Practitioner Family; Visit Provider Nurse Practitioner Family
DX: I10 Essential (primary) hypertension (principal)
CPT/HCPCS: 78452; 93017; A9500; J2785

== ENCOUNTER → 2021-12-14 09:27 | Outpatient (BNVA) | payer MEDICARE, OTHER, SELFPAY | PROVIDERS: PCP Nurse Practitioner Family; Visit Provider Internal Medicine Cardiovascular Disease | DX: R94.39 Abnormal result of other cardiovascular function study (principal); Z87.891 Personal history of nicotine dependence | CPT/HCPCS: 93005; 99204 ==

== ENCOUNTER 2022-01-30 08:38 | Outpatient (CLI) | payer MEDICARE, OTHER, SELFPAY ==
[2022-01-30 09:34] LABS: PSA Screen - Urology 16.91 ng/mL (0-4)
== END 2022-01-30 08:39 | disposition home or self-care (01) ==
LOC: LAB 08:41
PROVIDERS: PCP Nurse Practitioner Family; Visit Provider Urology
DX: R97.20 Elevated prostate specific antigen [PSA] (principal); N40.1 Benign prostatic hyperplasia with lower urinary tract symptoms; N13.8 Other obstructive and reflux uropathy
CPT/HCPCS: 36415; 81003; 99213; G0103

== ENCOUNTER → 2022-02-28 12:46 | Outpatient (BNVA) | payer MEDICARE, OTHER, SELFPAY | PROVIDERS: PCP Nurse Practitioner Family; Visit Provider Internal Medicine Rheumatology | DX: M05.9 Rheumatoid arthritis with rheumatoid factor, unspecified (principal); Z79.899 Other long term (current) drug therapy; Z71.89 Other specified counseling; M15.9 Polyosteoarthritis, unspecified | CPT/HCPCS: 36415; 72170; 80076; 82565; 85025; 86140; 99214 ==

== ENCOUNTER → 2022-03-23 08:03 | Outpatient (BNVA) | payer MEDICARE, OTHER, SELFPAY | PROVIDERS: PCP Nurse Practitioner Family; Visit Provider Internal Medicine Cardiovascular Disease | DX: R94.39 Abnormal result of other cardiovascular function study (principal); Z87.891 Personal history of nicotine dependence | CPT/HCPCS: 99214; Q3014 ==

== ENCOUNTER 2022-04-03 08:37 | Outpatient (CLI) | payer MEDICARE, OTHER, SELFPAY ==
[2022-04-03 08:46] VITALS: BP 135/66; PULSE 65; RESP 18; TEMP 36.7; O2SAT 97
[2022-04-03] MEDS: sodium chloride 0.9% 250 ML 50 ML IV (09:19)
[2022-04-03] MEDS: acetaminophen 325 mg Tablet 650 MG PO (09:20)
[2022-04-03] MEDS: diphenhydrAMINE 50 mg/mL SDV 1mL IVP (09:21)
[2022-04-03] MEDS: rituximab 1,000 MG in sodium chloride 0.9% 250 ML, primary tubing onc 1 EACH 37.5 MG IV (09:32)
[2022-04-03 09:33] LABS: Basophils % 0.6 %; Eosinophils # 0.3 10^3/uL (0.0-0.8); Hematocrit 40.4 % (42.0-52.0); Hemoglobin 13.2 g/dL (11.7-16.6); Lymphocytes # 1.5 10^3/uL (0.8-4.8); Lymphocytes % 30.4 %; Mean Corpuscular HGB Conc 32.7 g/dL (30.0-36.0); Mean Corpuscular Hemoglobin 29.3 pg (28.0-34.0); Mean Corpuscular Volume 89.8 fl (80-94); Mean Platelet Volume 9.8 fL (7.4-10.4); Monocytes # 0.6 10^3/uL (0.2-0.9); Monocytes % 11.2 %; Neutrophils # 2.63 10^3/uL (1.8-7.7); Neutrophils % 52.6 %; Nucleated Red Blood Cells % 0 %; Platelet Count 163 10^3/cmm (130-400); Red Cell Distribution Width 12.6 % (12.1-15.1)
[2022-04-03 09:37] LABS: Erythrocyte Sedimentation Rate 12 mm/hr (0-10)
[2022-04-03 09:55] LABS: Alanine Aminotransferase 10 U/L (0-41); Albumin Level 3.9 g/dL (3.5-5.2); Alkaline Phosphatase 110 U/L (40-130); Aspartate Amino Transferase 18 U/L (0-40); C Reactive Protein 5.5 mg/L (0.0-4.9); Globulin 2.6 g/dL (1.3-4.6); Total Bilirubin 0.4 mg/dL (0.15-1.2); Total Protein 6.5 g/dL (6.6-8.7)
[2022-04-03 09:59] VITALS: BP 139/78; PULSE 57; RESP 16; TEMP 36.8; O2SAT 98
[2022-04-03 10:30] VITALS: BP 139/78; PULSE 56; RESP 16; TEMP 36.5; O2SAT 95
[2022-04-03 11:04] VITALS: BP 145/78; PULSE 56; RESP 16; TEMP 36.7; O2SAT 97
[2022-04-03 12:51] VITALS: BP 145/85; PULSE 61; RESP 18; TEMP 36.6; O2SAT 99
== END 2022-04-03 08:38 | disposition home or self-care (01) ==
LOC: ONCMED 08:37
PROVIDERS: PCP Nurse Practitioner Family; Visit Provider Internal Medicine Rheumatology
DX: M05.79 Rheumatoid arthritis with rheumatoid factor of multiple sites without organ or systems involvement (principal); Z79.899 Other long term (current) drug therapy
CPT/HCPCS: 80076; 82565; 85025; 85651; 86140; 96365; 96366; 96375; J1200; J2930; J7050; J9312

== ENCOUNTER 2022-04-17 08:44 | Oncology outpatient (recurring) (ONCR) | payer MEDICARE, OTHER, SELFPAY ==
[2022-04-17 08:56] VITALS: BP 120/62; PULSE 64; RESP 16; TEMP 36.8; O2SAT 98
[2022-04-17] MEDS: acetaminophen 325 mg Tablet 650 MG PO (09:32)
[2022-04-17] MEDS: sodium chloride 0.9% 250 ML 50 ML IV (09:32)
[2022-04-17] MEDS: diphenhydrAMINE 50 mg/mL SDV 1mL IVP (09:34)
[2022-04-17] MEDS: rituximab 1,000 MG in sodium chloride 0.9% 500 ML 37.5 MG IV (09:59)
[2022-04-17 10:30] VITALS: BP 121/64; PULSE 54; RESP 16; TEMP 36.7; O2SAT 96
[2022-04-17 10:59] VITALS: BP 129/67; PULSE 56; RESP 16; O2SAT 96
[2022-04-17 11:33] VITALS: BP 132/76; PULSE 53; RESP 16; TEMP 36.6; O2SAT 96
[2022-04-17 14:48] VITALS: BP 155/76; PULSE 72; RESP 16; TEMP 36.7; O2SAT 95
== END 2022-04-17 23:59 | disposition home or self-care (01) ==
PROVIDERS: PCP Nurse Practitioner Family; Visit Provider Internal Medicine Rheumatology
DX: M05.9 Rheumatoid arthritis with rheumatoid factor, unspecified (principal)
CPT/HCPCS: 96365; 96366; 96375; 96413; 96415; J1200; J2930; J7040; J7050; J9312

== ENCOUNTER 2022-06-11 08:29 | Outpatient (CLI) | payer MEDICARE, OTHER, SELFPAY ==
--- NOTE | 2022-06-11 08:37 | MR_ITS ---
WS: [id number] MRI LEFT SHOULDER HISTORY: LEFT SHOULDER PAIN, TEAR OF LEFT SUPRASPINATUS TENDON COMPARISON: None available. TECHNIQUE: Multiplanar sequences of the shoulder joint are submitted. Moderate AC joint arthritis. Bone and soft tissue hypertrophy. Mild encroachment upon the supraspinat us myotendinous insertion. Very small amount of fluid in the subacromial and subdeltoid bursa. Modera te subacromial impingement. No os acromion. Abnormal biceps tendon. Subluxation of the biceps tendon with split tears. Humeral head is high riding nearly the abutting the undersurface of the acromion. Osteophytic ridging around the humeral head with loss of cartilage. Loss of cartilage involving the glenoid. Full-thickn ess supraspinatus tendon tear with retraction to the glenoid. Severe atrophy of the supraspinatus. In crease fluid in the infraspinatus muscle and tendon sheath. There is at least a partial tear at the i nsertion site. There is also increased fluid in the teres minor suggesting a tear also. Wavy subscapu azul tendon. Tear of the subscapularis tendon is expected but none is identified. There is tendinopa thy. Small joint effusion. No labral tears. MR/MR shoulder LT wo con* [id number] IMPRESSION: 1. Markedly abnormal appearance of the shoulder. 2. Moderate AC joint arthritis with encroachment upon the supraspinatus. 3. High riding humeral head nearly abutting the undersurface of the acromion. 4. Complete supraspinatus tendon tear with retraction to the glenoid. 5. Additional tendon tears with intrasubstance fluid involving the infraspinat us and teres minor. 6. Abnormal subscapularis tendon. The tendon is wavy with tendinopathy. Suspec t tear but not identified. 7. Joint effusion. 8. Subluxation biceps tendon with split tears.
== END 2022-06-11 08:30 | disposition home or self-care (01) ==
LOC: RAD 08:31
PROVIDERS: PCP Nurse Practitioner Family; Visit Provider Nurse Practitioner Family
DX: S46.912A Strain of unspecified muscle, fascia and tendon at shoulder and upper arm level, left arm, initial encounter (principal); X58.XXXA Exposure to other specified factors, initial encounter; M13.812 Other specified arthritis, left shoulder
CPT/HCPCS: 73221

== ENCOUNTER 2022-07-20 11:24 | Outpatient (CLI) | payer MEDICARE, OTHER, SELFPAY ==
[2022-07-20 12:20] LABS: Prostate Specific AG Urology 18.77 ng/mL (0-4)
== END 2022-07-20 11:25 | disposition home or self-care (01) ==
LOC: LAB 11:29
PROVIDERS: PCP Nurse Practitioner Family; Visit Provider Urology
DX: R97.20 Elevated prostate specific antigen [PSA] (principal)
CPT/HCPCS: 36415; 84153

== ENCOUNTER → 2022-07-31 09:28 | Outpatient (BNVA) | payer MEDICARE, OTHER, SELFPAY | PROVIDERS: PCP Nurse Practitioner Family; Visit Provider Urology | DX: N40.1 Benign prostatic hyperplasia with lower urinary tract symptoms (principal); N13.8 Other obstructive and reflux uropathy; R97.20 Elevated prostate specific antigen [PSA] | CPT/HCPCS: 81003; 99213 ==

== ENCOUNTER → 2022-09-04 12:50 | Outpatient (BNVA) | payer MEDICARE, OTHER, SELFPAY | PROVIDERS: PCP Nurse Practitioner Family; Visit Provider Internal Medicine Rheumatology | DX: M05.9 Rheumatoid arthritis with rheumatoid factor, unspecified (principal); Z79.899 Other long term (current) drug therapy; Z71.89 Other specified counseling | CPT/HCPCS: 99214 ==

== ENCOUNTER → 2022-09-21 10:22 | Outpatient (BNVA) | payer MEDICARE, OTHER, SELFPAY | PROVIDERS: PCP Nurse Practitioner Family; Visit Provider Internal Medicine Cardiovascular Disease | DX: R94.39 Abnormal result of other cardiovascular function study (principal); Z87.891 Personal history of nicotine dependence; R06.02 Shortness of breath; R07.9 Chest pain, unspecified | CPT/HCPCS: 99214 ==

== ENCOUNTER 2022-09-26 08:55 | Outpatient (CLI) | payer MEDICARE, OTHER, SELFPAY ==
[2022-09-26 09:31] LABS: Basophils % 0.6 %; Eosinophils # 0.2 10^3/uL (0.0-0.8); Eosinophils % 4.7 %; Hematocrit 40.7 % (42.0-52.0); Hemoglobin 13.3 g/dL (11.7-16.6); Lymphocytes # 1.5 10^3/uL (0.8-4.8); Lymphocytes % 30.4 %; Mean Corpuscular HGB Conc 32.7 g/dL (30.0-36.0); Mean Corpuscular Hemoglobin 30.2 pg (28.0-34.0); Mean Corpuscular Volume 92.5 fl (80-94); Mean Platelet Volume 9.4 fL (7.4-10.4); Monocytes # 0.5 10^3/uL (0.2-0.9); Monocytes % 10.9 %; Neutrophils # 2.64 10^3/uL (1.8-7.7); Neutrophils % 53.4 %; Nucleated Red Blood Cells % 0 %; Platelet Count 146 10^3/cmm (130-400); White Blood Count 4.9 10^3/uL (4.0-10.0)
[2022-09-26 09:37] LABS: INR 1.05 (0.83-1.21)
[2022-09-26 09:39] LABS: Anion Gap 11.9 (5-19); Blood Urea Nitrogen 24 mg/dL (8-23); Calcium 8.9 mg/dL (8.5-10.5); Carbon Dioxide 29 mmol/L (22-29); Chloride 103 mmol/L (98-107); Glucose 93 mg/dL (65-115); Osmolality Calculated 292 mOsm/kg (285-295); Potassium 4.9 mmol/L (3.5-5.1); Sodium 139 mmol/L (136-145)
== END 2022-09-26 08:56 | disposition home or self-care (01) ==
PROVIDERS: PCP Nurse Practitioner Family; Visit Provider Internal Medicine Cardiovascular Disease
DX: R94.39 Abnormal result of other cardiovascular function study (principal); R06.02 Shortness of breath
CPT/HCPCS: 36415; 80048; 85025; 85610

== ENCOUNTER 2022-10-02 07:18 | Outpatient (CLI) | payer MEDICARE, OTHER, SELFPAY ==
[2022-10-02] VITALS (34 sets, daily range): BP systolic 113–171; BP diastolic 61–83; PULSE 48–72; RESP 5–23; TEMP 36.6–37.1; O2SAT 95–98; BMI 24.5
--- NOTE | 2022-10-02 07:30 | XACV_ITS ---
Exam Room: 2 Ht: 170 cm Wt: 71 kg BSA: 1.84 m2 Gender: Male : 1940 Exam Priority: Routine Procedure(s): Procedure Description: Diagnostic procedure Procedure Description: PCI procedure Procedure Description: Left Heart Catheterization Procedure Description: Drug Eluting Coronary Stent Procedure Description: PTCA Procedure Description: Coronary Angiography Diagnostic Cath Status: Elective Diagnostic Findings * 82-year-old man with past medical history of rheumatoid arthritis and abnormal stress test. Patient continued to have exertional chest discomfort and burning in nature and hence was admitted electively for left heart catheterization. * Left Main has 20% ostial and 40% distal stenosis. * Left Anterior Descending with mild 30% narrowing of mid segment. Distal to apical segment with 70-80% stenosis. * Ostial circumflex with 40% stenosis. Mid Circumflex: calcified obstructive 95% stenosis, GREY: 3 flow. * Right Coronary Artery mild to moderate diffuse disease in proximal and mid segments. 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 * Coronary angiography shows right dominance. * Case was discussed and images were reviewed with Dr. Alcantara. He took over the the case at this time. PCI Status: Elective PCI LVEF Assessed: No PCI Indication: NSTE - ACS Interventional Findings * The mid circumflex lesion is the culprit. It is 95% or greater stenosed. Complicating the intervention is both ostial and distal left main disease and ostial circumflex disease with calcification of the vessel. Initially it was relatively easy to cross the lesion with a wire. Subsequently a 2.75 x 12 mm balloon would not cross the lesion. In fact it would not get close to the lesion. I switched to a 2 mm balloon which I was able to advance to the lesion and performed plain old balloon angioplasty. I then tried to place a stent but it was caught on the calcium in the proximal vessel. I then went back with a 2.75 x 12 mm balloon and dilated the lesion again. I tried the stent a second time and it would not pass due to the calcium. I then placed a guide liner which allowed me to stent the lesion. Distal to the stent there was a 90% stenosis. I used a guide liner again to place another stent distal to the first stent a 2 x 8 mm stent. The end result was quite good. A branch which came off at the site of the lesion was preserved. Decision for PCI with Surgical Consult: No PCI for Multi-vessel Disease: No Conclusions 1. Mid Circumflex with calcified severe 95% stenosis. This underwent balloon angioplasties followed by two drug eluting stents placement. 2. Mild to moderate disease in left main artery, mid left anterior descending and proximal to mid right coronary artery. 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 3. Distal to apical segment of left anterior descending artery with 70-80% stenosis. Medical management was recommended. Recommendations * Return to inpatient for close monitoring and routine cath care. * Statin and aspirin 81mg lifelong, if tolerated. * Continue Plavix 75mg p.o. daily for at least one year. We will assess at the end of one year to determine continuation or not. Pressures Phase:Rest AO : 132 / 72 ( 96 ) @ 9:50:00 AM 123 / 76 ( 98 ) @ 9:51:00 AM 118 / 77 ( 97 ) @ 9:54:00 AM 129 / 73 ( 98 ) @ 9:57:00 AM 159 / 78 ( 110 ) @ 10:03:00 AM 159 / 79 ( 112 ) @ 10:03:00 AM 122 / 79 ( 98 ) @ 10:21:00 AM 130 / 82 ( 105 ) @ 10:29:00 AM 128 / 88 ( 108 ) @ 10:34:00 AM 134 / 83 ( 107 ) @ 10:42:00 AM LV : 163 / -5 / 16 @ 10:03:00 AM 162 / -7 / 15 @ 10:03:00 AM Valves Phase:DefaultPhase AV : 2.0 @ 10:07:11 AM 2.0 @ 10:07:11 AM AV Mean Gradient: 10.0 @ 10:07:11 AM 10.0 @ 10:07:11 AM Clinical Evaluation EBL: 5mL-10mL Procedural Details Procedure Consent Obtained. Admit Source: Out Patient. Pre-Procedure Time Out. Identified patient by full name and date of as verbalized by the patient/guarantor. Does the consent match the physician's order: Yes. Accurate & Complete Informed Consent: Yes. Inpatient/Outpatient History & Physical on Chart: Yes. If H&P is completed, is and addenduem needed: No; If yes, is the addendum complete: N/A. Visualize and Verify Site with Patient/Guarantor: N/A. Relevant Radiology Images available: N/A. The risks, benefits, and alternatives of sedation and/or procedure were discussed by physician. The patient agrees to continue. Physician arrived. Procedure started. [facility] Clinical Fraility Score: 3: Managing Well. Rehab Services Aide Indications: abnormal stress test. Chest Pain Symptom Assessment: Typical Angina Symptoms. Correct patient, site and procedure confirmed by cath team. PERRLA. 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 Lungs clear x 5 lobes. IV Site on Arrival: 18 gauge in the right anticubital. IV Fluids: 0.9% NaCl at KVO. 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 Pre Procedural Pulses: bilateral radial was 3+. Pre Procedural Pulses: bilateral dorsalis pedis was 1+. Pre Procedural Pulses: bilateral posterior tibial was 2+. Oxygen started at 2liters/min via nasal canula. right groin was prepped with chloroprep then draped in the usual sterile fashion. right radial was prepped with chloroprep then draped in the usual sterile fashion. Physician notified. Baseline sample Acquired. HR: 65 BPM. Physician scrubbed in. Immediate Pre-Procedure Time Out. Correct Patient: Yes; Correct Procedure: Yes; Correct Site: Yes; Correct Patient Position: Yes; Correct Supplies: Yes; Dried Flammable Prep: Yes; Blood Products Available: N/A;. Lidocaine 1% infiltrated to the right radial. Arterial access obtained. A 5 mongolian TIG catheter in over wire. Multiple views taken of right coronary artery. Catheter redirected to the LCA. Multiple views taken of left coronary artery. Catheter removed over the exchange wire. A 5 mongolian JR4 catheter in over wire. Multiple views taken of left coronary artery. Dr Alcantara called for consult. EDP Sample taken: LV 163/-6,16; HR: 72 BPM; SpO2: 99%. Pullback taken: LV 162/-8,15; AO 159/78(110); Mean: 10mmHg, Peak to Peak: 2mmHg, SEP: 20sec/min; HR: 70 BPM; SpO2: 100%. Catheter out. Side port of sheath attached to Normal Saline flush at KVO to maintain patency. Physicians review of cine films. Physician scrubbed in. Patient's family updated. 6 mongolian XB 3.5 guide catheter was inserted over the wire. [place] guidewire was advanced through the guide catheter to lesion in the distal Circ. Unsuccessful advancement. Wire out, reshaping. [place] guidewire was advanced through the guide catheter to lesion in the distal Circ. 2.24nve53my Balloon inserted to lesion in the mid Circ. Unable to cross lesion with balloon. Intact balloon removed. 2.5kyt58uc Balloon inserted to lesion in the mid Circ. Inflation number : 1 A AB MINI TREK 2.00X12 RX BALLOON was prepped and advanced across the Mid CX , then inflated to 10 YOGI for 0:32 seconds. Results checked. Balloon out. 2.75mm [id number] inserted to lesion in the mid Circ. Unable to cross lesion with stent, intact stent out. 2.80ofr66ziYegdnrz inserted to lesion in the mid Circ. Inflation number : 2 A AB TREK 2.75X15 RX BALLOON was prepped and advanced across the Mid CX , then inflated to 8 YOGI for 0:33 seconds. Balloon out. 2.88ewi56km Stent inserted to lesion in the mid Circ. Intact stent removed, unable to cross lesion. 6F guidliner catheter in. Stent inserted to lesion in the mid Circ. Inflation Number : 3 A CAIN Mathur KATYA 2.75X12 OLINDA -Lot Number# [id number] exp date 07/15/2023 was prepped and advanced across the Mid CX. The stent was deployed at 10 YOGI for 0:31 seconds. Results checked. Stent balloon out over wire. 2.1zxi2kd Stent inserted to lesion in the mid Circ. Inflation Number : 4 Deshaun Mathur KATYA 2.5X8 OLINDA -Lot Number# [id number] exp date 07/30/23 was prepped and advanced across the Mid CX. The stent was deployed at 12 YOGI for 0:32 seconds. Stent balloon out over wire. Results checked. Guideliner out. Guide catheter out. Wire out. Post Procedure: Pulses reassessed and unchanged. PERRLA. 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 No VTE prophylaxis required. A TR Band was successful obtaining hemostatsis at the Right Radial artery insertion site. Post-op diagnosis: CAD. Medication's Wasted: Lidocaine 1% = 3 mL. Medication's Wasted: Nitro = 49.8 mg. Medication's Wasted: Heparin = 1000 units. Medication's Wasted: Other = versed 2 mg. Medication's Wasted: Other = 75mcg fentanyl. Total IV fluids: 108 mL. Complications: none. Estimated blood loss: 5mL-10mL. Responsiveness - Normal response to verbal stimuli; alert and oriented, PERRLA. Airway - Unaffected, no intervention required; spontaneous ventilation. Circulation: W/N/L, pulses unchanged. Nausea/Vomiting: No. Procedure completed. Patient transferred by wheelchair to CPRU. Vital chart was stopped. Access Site Site: Right Radial artery Sheath Size: 6 Fr Hemostasis Method: TR Band Hemostasis Success: Successful Complication Findings: No complications occurred during the procedure. Intra/Post-Procedure Events Stroke - Undetermined: No Cardiac Arrest: No Procedure Medications Start: 8:40 AM Stop: 8:40 AM Medication: Versed Amount: 1 mg Route: I.V. Start: 8:40 AM Stop: 8:40 AM Medication: Fentanyl Amount: 50 mcg Route: I.V. Start: 8:46 AM Stop: 8:46 AM Medication: Versed Amount: 1 mg Route: I.V. Start: 8:47 AM Stop: 8:47 AM Medication: Nitrogylcerin Amount: 200 mcg Route: I.A. Start: 8:50 AM Stop: 8:50 AM Medication: Heparin Amount: 5000 units Route: I.V. Start: 9:04 AM Stop: 9:04 AM Medication: Fentanyl Amount: 25 mcg Route: I.V. Start: 9:15 AM Stop: 9:15 AM Medication: Versed 1 mg and Fentanyl 25 mcg Amount: 1 Route: I.V. Start: 9:38 AM Stop: 9:38 AM Medication: Versed Amount: 1 mg Route: I.V. Start: 9:52 AM Stop: 9:52 AM Medication: Fentanyl Amount: 25 mcg Route: I.V. I, the attending physician, have reviewed and verified all procedure medications. Yes, all medications given per verbal order History/Risk Factors Hypertension: No Dyslipidemia: No Peripheral Arterial Disease (PAD): No Myocardial Infarction (MT): No Obesity: No Tobacco Use: Former Prior Interventions PCI: No CABG: No Valve Surgery: No Report Signatures Diagnostic Workflow Finalized by Molly Singer MD on 10/12/2022 02:42 PM Interventional Workflow Finalized by Dr. Abdias Alcantara MD on 10/02/2022 10:18 AM
[2022-10-02] MEDS: diphenhydrAMINE 50 mg Capsule PO (07:45)
--- NOTE | 2022-10-02 08:39 | P.HPUD_ITS ---
Surgery/Procedure H&P Update DATE OF PROCEDURE: October 02, 2022 DATE H&P PERFORMED: 09/21/22 PREOP DIAGNOSIS: Abnormal stress test, worsening angina PRIMARY INDICATION FOR PROCEDURE: Abnormal stress test, worsening angina PLANNED PROCEDURE: Operation Date: 10/02/22 08:30 Proposed Procedures p [facility] w/wo [id number], R94.39, R06.02(Left) - Molly Singer MD PATIENT REASSESSED PRIOR TO SEDATION, WITH NO CHANGE NOTED: Yes PHYSICAL EXAM: alert, oriented x 3, clear to auscultation bilaterally and r egular rate & rhythm AIRWAY EVAL/ANESTHESIA PLAN: normal airway, ASA III, Monitored Anesthesia, Local Anesthesia, Risks, benefits & alternatives of sedation and/or procedure di scussed and Patient agrees to continue as planned
--- NOTE | 2022-10-02 10:16 | PC.NURSE ---
Patient arrived post cath to recovery CPRU 4. Pt alert and oriented. Denies pain. Pt placed on bedside clinical research monitor. TR band in place to right wrist. No signs of bleeding or hematoma. at bedside. Report called to FABIOLA Hamm by Adrianne Denney RN.
--- NOTE | 2022-10-02 10:50 | PC.NURSE ---
From labourers Pt is alert,orientedx4. Pt denies any chest pain or discomfort. TR band intact on right wrist. Radial pulse palpable+3. No hematoma, swelling or bleeding. Educated pt on activity restrictions on right arm, how to take care of his wound and s/s of infection. Vital signs monitored. Call light and urinal provided to pt. at bedside.
[2022-10-02] MEDS: sodium chloride 0.9% 1,000 ML 100 ML IV (11:27)
[2022-10-02] MEDS: gabapentin 300 mg Capsule PO (20:24)
[2022-10-02] MEDS: mirtazapine 15 mg Tablet PO (20:25)
[2022-10-02] MEDS: tamsulosin 0.4 mg Capsule PO (20:25)
[2022-10-03 04:43] VITALS: BP 146/71; PULSE 64; RESP 14; O2SAT 97
[2022-10-03 05:12] VITALS: PULSE 59
[2022-10-03] MEDS: metoprolol succinate ER (24 HR) 25 mg Tablet PO (06:05)
[2022-10-03 07:35] VITALS: PULSE 90; O2SAT 95
[2022-10-03 07:47] VITALS: BP 135/76; PULSE 63; RESP 14; TEMP 36.7; O2SAT 95
[2022-10-03] MEDS: escitalopram 10 mg Tablet 20 MG PO (08:45)
[2022-10-03] MEDS: tamsulosin 0.4 mg Capsule PO (08:45)
[2022-10-03] MEDS: gabapentin 300 mg Capsule PO (08:46)
[2022-10-03] MEDS: atorvastatin 40 mg Tablet 20 MG PO (08:46)
[2022-10-03] MEDS: clopidogrel 75 mg Tablet PO (08:46)
[2022-10-03] MEDS: finasteride 5 mg Tablet PO (08:46)
[2022-10-03] MEDS: aspirin 81 mg EC Tablet PO (08:46)
--- NOTE | 2022-10-03 08:48 | P.DS_ITS ---
Discharge Providers Date of Admission: October 02 2022 Date of Discharge: October 03, 2022 Attending Provider at Discharge: Molly Singer MD Primary Care Provider: Rae Pinto NP Diagnoses at Discharge Discharge Diagnosis (1) CAD (coronary artery disease): Details from hospital stay: Patient underwent drug-eluting stents x2 placement in mid circumflex. Findings of the cardiac catheterization discussed with patient and his in detail. Patient is to continue aspirin 81 mg and Plavix 75 mg on discharge. -He is currently on pravastatin 10 mg daily. We will plan to uptitrate based on how patient tolerates it. -Patient was advised on post cath instructions. He was also supposed to see a orthopedic surgeon in [place] for knee surgery next month. He is thinking about canceling that appointment given the need for dual anti platelet therapy for potentially 12 months postprocedure. -Follow-up with Chen Maharaj in 1 week. -BMP in 1 week -Cardiac rehab was discussed with patient and he would like to think about it. Status: Acute (2) Abnormal nuclear stress test: Status: Acute (3) Dyslipidemia: Status: Acute (4) Seropositive rheumatoid arthritis: Status: Acute Reason for Visit Reason for Visit: R94.39 Brief History: 82-year-old man with past medical history of rheumatoid arthritis and mildly abnormal stress stress test. Patient continued to have exertional chest discomfort described as burning sensation in the chest and hence he was admitted electively yesterday for left heart catheterization. Hospital Course Hospital Course Patient underwent left heart catheterization via right radial access. He was found to have right dominant circulation with mild to moderate diffuse disease in right coronary artery and chronic total occlusion of right PDA with collaterals from LAD septal branches and from circumflex artery. He was also no holly to have about 20% ostial left main and 40% distal left main lesion. Ostial circumflex with 40% stenosis and mid circumflex with severe 99% stenosis. Distal left anterior descending artery with 60% stenosis and ostial diagonal branch with 40% stenosis. Mid circumflex underwent drug-eluting stent placement x2 by Dr. Alcantara. Patient tolerated the push procedure well and was transferred out of Nanotechnology Engineering Technician in stable state. Overnight patient did well and is ready for discharge this morning Physical Exam Narrative: GENERAL: Averagely built and averagely nourished in no acute distress HEENT: Extraocular movement intact. No pallor or icterus. NECK: central trachea, No JVD, No carotid bruit. CARDIOVASCULAR SYSTEM: S1-S2 regular. No murmur rubs or gallops. RESPIRATORY SYSTEM: Chest clear to auscultation. No wheezes rhonchi or rubs heard. No use of accessory muscles. ABDOMEN: Soft, nontender and nondistended. Normal bowel sounds present. EXTREMITIES: No cyanosis or edema. No signs of chronic venous insufficiency. Right wrist with no significant bruising or hematoma. 2+ radial. CATALYTIC CASE OPERATOR: Patient is alert oriented ?3. No focal neurological deficits. SKIN: Normal turgor and temperature. Discharge Data Studies Completed and Pending Pending at discharge Category Date Time Status ROVING CAN TENDER request for service Routine Exams 10/02/22 07:30 Taken Vitals Last Vital Signs Temp 98.1 F 10/03/22 07:47 Pulse 63 10/03/22 07:47 Resp 14 10/03/22 07:47 BP 135/76 10/03/22 07:47 Pulse Ox 95 10/03/22 07:47 O2 Del Method Room Air 10/03/22 07:47 Discharge Plan Discharge Patient Disposition: Home Prescriptions: Continued Rituxan 10 mg/mL concentrate 10 mg IV .Q 6 Months metoprolol succinate 25 mg tablet extended release 24 hr 25 mg PO DAILY@0700 acetaminophen 325 mg tablet 325 mg PO QID PRN (Reason: Pain) aspirin [Adult Low Dose Aspirin] 81 mg tablet,delayed release (DR/EC) 81 mg PO DAILY Qty: 90 3RF pravastatin 10 mg tablet 10 mg PO DAILY Qty: 90 3RF escitalopram oxalate [Lexapro] 20 mg tablet 20 mg PO DAILY Qty: 30 4RF mirtazapine 15 mg tablet 15 mg PO .HS Qty: 30 4RF tamsulosin 0.4 mg capsule 0.4 mg PO BID Qty: 180 3RF Multivitamin 50 Plus Tablet 1 tab PO DAILY@0700 finasteride 5 mg Tablet 5 mg PO DAILY gabapentin 300 mg Capsule 300 mg PO DAILY Nitrostat 0.4 mg tablet, sublingual 0.4 mg sublingual Q5M PRN (Reason: chest pain) Qty: 25 3RF Rx Instructions: do not exceed 3 doses per episode No Action Vitamin D2 10 mcg (400 unit) Tablet 10 mcg PO DAILY Discharge Orders: Discharge Order (Routine); Ordered 10/03/22 Ordered By: Molly Gregory: Rae Pinto NP [Primary Care Provider] - 10/09/22 10:30 am Chen Maharaj FNP [Nurse Practitioner] - 10/08/22 10:45 am Diet: Cardiac Activity: Limit activity as instructed Patient Instructions: Coronary Intravascular Stent Placement (DC), Post Angiogram Home Care Instructions Activity Restrictions/Additional Instructions: Do not lift anything more than 5 lbs for 1 week. Keep the site dry and clean Take medications as prescribed and follow up as scheduled. Discharge Date/Time: 10/03/22 09:29 Discharge Attestations Time Spent in Discharge Care*: less than 30 min Specific Discharge Activities: educating patient, educating and/or supporting family/caregiver, documenting/other paperwork and evaluating patient/reviewing data Status at Discharge: Cognitive status at discharge: cognitively intact , Functional status at discharge: independent ambulation , Quality Metrics Clinical Quality Measures [ No reported AMI, CVA or VTE this stay] Coding Level of Care Code 65837 Diagnoses CAD (coronary artery disease) I25.10 Abnormal nuclear stress test R94.39 Dyslipidemia E78.5 Seropositive rheumatoid arthritis M05.9
--- NOTE | 2022-10-03 14:32 | PC.NURSE ---
Even though it is not reflected in the discharge, patient was discharged with Plavix. This nurse verified by calling patient and making sure he picked it up from [facility] and by calling [facility] in [place] and confirming they did receive the prescription and confirmed patient picked it up.
== END 2022-10-03 09:29 | disposition home or self-care (01) ==
LOC: CCL 07:23 → CSU 11:08
PROVIDERS: Internal Medicine Cardiovascular Disease; PCP Nurse Practitioner Family; Visit Provider Internal Medicine Cardiovascular Disease
DX: R94.39 Abnormal result of other cardiovascular function study; E78.5 Hyperlipidemia, unspecified; M05.9 Rheumatoid arthritis with rheumatoid factor, unspecified; Z79.82 Long term (current) use of aspirin; Z79.02 Long term (current) use of antithrombotics/antiplatelets; Z87.891 Personal history of nicotine dependence; I25.118 Atherosclerotic heart disease of native coronary artery with other forms of angina pectoris
CPT/HCPCS: 36415; 93458; 96361; 96365; 96376; 99152; 99153; C1725; C1769; C1874; C1887; C1894; C9600; J1644; J2250; J3010; J3490; J7030; Q0163; Q9967

== ENCOUNTER 2022-10-04 10:50 | Emergency (ER) | payer MEDICARE, OTHER, SELFPAY ==
[2022-10-04 10:55] VITALS: BP 163/84; PULSE 65; RESP 15; TEMP 36.8; O2SAT 99
--- NOTE | 2022-10-04 10:58 | CT_ITS ---
WS: [id number] CT HEAD NONCONTRAST HISTORY: ams TECHNIQUE: Contiguous axial imaging performed through the brain in 2.5 mm imaging. Bone and soft tiss ue windows. Sagittal and coronal reformats reviewed. All CT scans at [facility] use at least one of these dose optimization techniques: automated exposure control; mA and/or kV adjustment per pa tient size (includes targeted exams where dose is matched to clinical indication); or iterative recon struction. DLP: 1102.00 mGy.cm COMPARISON: 03/22/2020 No acute intracranial hemorrhage, midline shift or mass effect. Moderate atrophy with advanced small vessel ischemic disease. Prior lacunar infarct right caudate hea d and internal capsule. Mild progression of the small vessel ischemic type changes. No acute area of sulcal effacement. Ventricles: Normal size with no hydrocephalus. No inferior displacement of the cerebellar tonsils. Paranasal sinuses: As visualized are clear. Mastoid air cells: Well pneumatized. Calvarium and scalp: Skull is intact with no soft tissue edema or swelling. IMPRESSION: 1. No acute intracranial hemorrhage or edema. * 2. Moderate atrophy with advanced small vessel ischemic disease and prior lacunar infarct. Mild pr ogression of small vessel ischemic disease.
--- NOTE | 2022-10-04 11:11 | ED_ITS ---
HPI - Neuro Symptoms/Deficit General: Chief Complaint: Neuro Symptoms/Deficit Stated Complaint: lip and face numbness Time Seen by Provider: 10/04/22 11:02 History of Present Illness: Patient presents to the ER with complaints of a 2-day history of left facial droop and left facial numbness. This all started when patient had 2 cardiac stents placed on Saturday here. When he went back to the recovery room he noticed his left lip and the side of his face felt different but he thought he just bit it. The feeling has not went away he called his family doc who told him to come here to be evaluated. Patient is currently treated with Plavix and statin. Patient is never had anything like this before or other strokelike symptoms. Review of Systems General: Reports: 10 or more systems reviewed and unremarkable except in HPI and below PFSH ED PFSH: Medical History (Updated 10/04/22 @ 12:25 by Yuriy Hernandez DO) Diverticulosis DJD (degenerative joint disease) of cervical spine Dyslipidemia Elevated PSA Chronically elevated PSA with normal feeling prostate. Elected conservative observation over biopsy due to age and perceived low risk. Encounter for monitoring rituximab therapy High risk medication use History of left inguinal hernia Hx of lymphoma Immunization counseling Lymphoma pt said due to enbrel..tx at [facility] Rheumatoid arthritis Seropositive rheumatoid arthritis Status post extracorporeal shock wave therapy Urolithiasis Surgical History History of hernia surgery History of oral surgery Status post surgery of both feet Family History Father , at age 58-SD Myocardial infarction Hypertension Mother No problems noted. Sister Diabetes Social History Smoking and tobacco status: former smoker Quit status (tobacco): has quit using tobacco Year quit tobacco: 1965 Second hand smoke exposure: No Smoking risk assessment/counseling performed?: No Alcohol intake: former Desire information about alcohol rehabilitation?: No Counseling given: No Substance/Drug Use: never Desire information about substance/drug rehabilitation?: No Counseling given: No Marital status: Current occupational status: retired Physical Exam Const: COMMON NORMALS: no acute distress, average body habitus, patient oriented x3, no limitations, healthy appearing, alert and well nourished HENMT: COMMON NORMALS: normocephalic, atraumatic, hearing grossly normal bilaterally, external ears normal, Normal external nose present and moist oral mucous membranes HEAD & SCALP: normocephalic and atraumatic NOSE: Normal external nose present EXTERNAL EAR: Yes external ears normal Eye: COMMON NORMALS: Equal, round and reactive pupils present, EOMs intact bilaterally, conjunctivae normal and no scleral icterus CONJUNCTIVA: Yes conjunctivae normal PUPIL: Yes Equal, round and reactive pupils present Neck/C-Spine: COMMON NORMALS: full ROM, no lymphadenopathy, supple, no meningeal signs, no JVD and Thyroid normal THYROID: Thyroid normal Chest: COMMONS NORMALS: normal inspection of the chest and normal palpation of entire chest wall Resp: COMMON NORMALS: normal respiratory effort, No retractions, No use of accessory muscles and clear to auscultation bilaterally AUSCULTATION: clear to auscultation bilaterally Cardio: COMMON NORMALS: no JVD, regular rate, regular rhythm, S1 normal heart sound present, S2 normal heart sound present, No gallops present (Cardio), No clicks present (Cardio), No murmurs present (Cardio) and No rub (Cardio) RATE: regular rate RHYTHM: regular rhythm HEART SOUNDS: S1 normal heart sound present and S2 normal heart sound present GI: COMMON NORMALS: Normal to inspection, nondistended, normoactive bowel sounds present, Soft to palpation, non-tender, No hepatosplenomegaly present and no masses PALPATION: Yes Soft to palpation and Yes No hepatosplenomegaly p resent : COMMON NORMALS: Yes no CVA tenderness BLADDER/KIDNEY EXAM: Yes no CVA tenderness Back/Pelvis: COMMON NORMALS: no CVA tenderness Neuro: COMMON NORMALS: patient oriented x3 SENSORIUM/ORIENTATION: Yes alert MENINGEAL SIGNS: Yes no meningeal signs OTHER: Patient did have no variation in sensation on the left side or right side of his face or lips. Patient did have very mild barely noticeable facial droop on the left side of his smile. No other focal neurologic signs was noted. Course Vital Signs: Vital signs: Vital Signs Temperature 98.3 F 10/04/22 10:55 Pulse Rate 67 10/04/22 12:00 Respiratory Rate 16 10/04/22 12:00 Blood Pressure 98/77 10/04/22 12:00 Pulse Oximetry 98 10/04/22 12:00 Oxygen Delivery Me thod Room Air 10/04/22 10:55 MDM - Neuro Symptoms/Deficit Medical Decision Making Presents to the ER with complaints of left facial droop and left numbness post to stent placement in his heart on Saturday. This is the first ever since strokelike symptoms the patient has had patient is currently on Plavix and as pirin and a statin. Lab work was obtained as well as a CT scan. CT scan was negative for acute intracranial hemorrhage or edema but did show moderate atrophy with advanced small vessel ischemic disease and prior lacunar infarct. Patient will be instructed on these results and told to follow-up with his PCP and/or frothing machine operator at the previously scheduled appointment times. Patient is to continue his current medicine regimen. Differential Diagnosis Likely cerebrovascular accident; Unlikely carpal tunnel syndrome, convulsions, delirium, subarachnoid hemorrhage, peripheral neuropathy, multiple sclerosis or transient cerebral ischemia Medical Records I reviewed the patient's medical records. Lab Data I reviewed the patient's lab results. 10/04/22 11:20 10/04/22 11:20 Laboratory Results WBC 6.4 10^3/uL (4.0-10.0) 10/04/22 11:20 RBC 4.51 10^6/uL (4.1-5.3) 10/04/22 11:20 Hgb 13.5 g/dL (11.7-16.6) 10/04/22 11:20 Hct 41.7 % (42.0-52.0) L 10/04/22 11:20 MCV 92.5 fl (80-94) 10/04/22 11:20 MCH 29.9 pg (28.0-34.0) 10/04/22 11:20 MCHC 32.4 g/dL (30.0-36.0) 10/04/22 11:20 RDW 13.0 % (12.1-15.1) 10/04/22 11:20 Plt Count 164 10^3/cmm (130-400) 10/04/22 11:20 MPV 9.6 fL (7.4-10.4) 10/04/22 11:20 Neut % (Auto) 70.4 % 10/04/22 11:20 Lymph % (Auto) 17.9 % 10/04/22 11:20 [place] % (Auto) 8.8 % 10/04/22 11:20 Eos % (Auto) 2.4 % 10/04/22 11:20 Baso % (Auto) 0.3 % 10/04/22 11:20 Neut # (Auto) 4.49 10^3/uL (1.8-7.7) 10/04/22 11:20 Lymph # (Auto) 1.1 10^3/uL (0.8-4.8) 10/04/22 11:20 [place] # (Auto) 0.6 10^3/uL (0.2-0.9) 10/04/22 11:20 Eos # (Auto) 0.2 10^3/uL (0.0-0.8) 10/04/22 11:20 Baso # (Auto) 0.0 10^3/uL (0.0-0.1) 10/04/22 11:20 Nucleated RBC % (auto) 0 % 10/04/22 11:20 Nucleated RBCs # 0.0 /100WBC 10/04/22 11:20 PT 13.90 SECONDS (12.1-14.9) 10/04/22 11:20 INR 1.04 (0.8-1.2) 10/04/22 11:20 Sodium 139 mmol/L (136-145) 10/04/22 11:20 Potassium 4.5 mmol/L (3.5-5.1) 10/04/22 11:20 Chloride 102 mmol/L (98-107) 10/04/22 11:20 Carbon Dioxide 29 mmol/L (22-29) 10/04/22 11:20 Anion Gap 12.5 (5-19) 10/04/22 11:20 BUN 20 mg/dL (8-23) 10/04/22 11:20 Creatinine 1.2 mg/dL (0.7-1.2) 10/04/22 11:20 GFR Calculation Not Reportable 10/04/22 11:20 Glucose 106 mg/dL (65-115) 10/04/22 11:20 Calculated Osmolality 291 mOsm/kg (285-295) 10/04/22 11:20 Calcium 9.4 mg/dL (8.5-10.5) 10/04/22 11:20 Total Bilirubin 0.3 mg/dL (0.15-1.2) 10/04/22 11:20 AST 16 U/L (0-40) 10/04/22 11:20 ALT 10 U/L (0-41) 10/04/22 11:20 Alkaline Phosphatase 108 U/L (40-130) 10/04/22 11:20 Total Protein 6.8 g/dL (6.6-8.7) 10/04/22 11:20 Albumin 3.9 g/dL (3.5-5.2) 10/04/22 11:20 Globulin 2.9 g/dL (1.3-4.6) 10/04/22 11:[address] Head: Radiologist's impression: 1. No acute intracranial hemorrhage or edema. * 2. Moderate atrophy with advanced small vessel ischemic disease and prior lacunar infarct. Mild progression of small vessel ischemic disease. Discharge Plan Discharge Patient Disposition: Home Clinical Impression: Cerebrovascular accident Condition: Stable Prescriptions: No Action Rituxan 10 mg/mL concentrate 10 mg IV .Q 6 Months metoprolol succinate 25 mg tablet extended release 24 hr 25 mg PO DAILY@0700 acetaminophen 325 mg tablet 325 mg PO QID PRN (Reason: Pain) aspirin [Adult Low Dose Aspirin] 81 mg tablet,delayed release (DR/EC) 81 mg PO DAILY Qty: 90 3RF pravastatin 10 mg tablet 10 mg PO DAILY Qty: 90 3RF escitalopram oxalate [Lexapro] 20 mg tablet 20 mg PO DAILY Qty: 30 4RF mirtazapine 15 mg tablet 15 mg PO .HS Qty: 30 4RF tamsulosin 0.4 mg capsule 0.4 mg PO BID Qty: 180 3RF Multivitamin 50 Plus Tablet 1 tab PO DAILY@0700 finasteride 5 mg Tablet 5 mg PO DAILY gabapentin 300 mg Capsule 300 mg PO DAILY nitroglycerin [Nitrostat] 0.4 mg tablet, sublingual 0.4 mg sublingual Q5M PRN (Reason: chest pain) Qty: 25 3RF Rx Instructions: do not exceed 3 doses per episode ergocalciferol (vitamin D2) [Vitamin D2] 10 mcg (400 unit) Tablet 10 mcg PO DAILY clopidogrel 75 mg tablet 75 mg PO DAILY Discharge Orders: Discharge ED (Routine); Ordered 10/04/22 Ordered By: Yuriy Hernandez Referrals: Blair,Rae, PROCESS DEVELOPMENT MANAGER [Primary Care Provider] - 7-10 days Patient Instructions: Stroke (DC) Activity Restrictions/Additional Instructions: Your blood work and CT of your head was negative for any acute changes however this is a limited evaluation for acute stroke. Your clinical signs of the numbness and tingling of the side your face as well as facial droop does show you appear to have a clinical mild stroke. You are currently are already on the medications to treat this. Please follow-up with your family practice doctor and frothing machine operator at your previously scheduled times. Please continue take your medicine as directed. Coding Level of Care Code ED Patient Registration Representative for Emily Adair
[2022-10-04 11:15] VITALS: BP 122/73; PULSE 60; RESP 15; O2SAT 97
[2022-10-04 11:28] LABS: Basophils % 0.3 %; Eosinophils # 0.2 10^3/uL (0.0-0.8); Eosinophils % 2.4 %; Hematocrit 41.7 % (42.0-52.0); Hemoglobin 13.5 g/dL (11.7-16.6); Lymphocytes # 1.1 10^3/uL (0.8-4.8); Lymphocytes % 17.9 %; Mean Corpuscular HGB Conc 32.4 g/dL (30.0-36.0); Mean Corpuscular Hemoglobin 29.9 pg (28.0-34.0); Mean Corpuscular Volume 92.5 fl (80-94); Mean Platelet Volume 9.6 fL (7.4-10.4); Monocytes # 0.6 10^3/uL (0.2-0.9); Monocytes % 8.8 %; Neutrophils # 4.49 10^3/uL (1.8-7.7); Neutrophils % 70.4 %; Nucleated Red Blood Cells % 0 %; Platelet Count 164 10^3/cmm (130-400); Red Blood Count 4.51 10^6/uL (4.1-5.3); White Blood Count 6.4 10^3/uL (4.0-10.0)
[2022-10-04 11:30] VITALS: BP 116/70; PULSE 60; RESP 16; O2SAT 98
[2022-10-04 11:39] LABS: INR 1.04 (0.8-1.2)
[2022-10-04 11:45] VITALS: BP 128/78; PULSE 63; RESP 15; O2SAT 98
[2022-10-04 11:45] LABS: Alanine Aminotransferase 10 U/L (0-41); Albumin Level 3.9 g/dL (3.5-5.2); Alkaline Phosphatase 108 U/L (40-130); Anion Gap 12.5 (5-19); Aspartate Amino Transferase 16 U/L (0-40); Blood Urea Nitrogen 20 mg/dL (8-23); Calcium 9.4 mg/dL (8.5-10.5); Carbon Dioxide 29 mmol/L (22-29); Chloride 102 mmol/L (98-107); Globulin 2.9 g/dL (1.3-4.6); Glucose 106 mg/dL (65-115); Osmolality Calculated 291 mOsm/kg (285-295); Potassium 4.5 mmol/L (3.5-5.1); Sodium 139 mmol/L (136-145); Total Bilirubin 0.3 mg/dL (0.15-1.2); Total Protein 6.8 g/dL (6.6-8.7)
[2022-10-04 12:00] VITALS: BP 98/77; PULSE 67; RESP 16; O2SAT 98
== END 2022-10-04 12:52 | disposition home or self-care (01) ==
PROVIDERS: Emergency Provider Emergency Medicine; PCP Nurse Practitioner Family
DX: I63.9 Cerebral infarction, unspecified (principal); Z79.82 Long term (current) use of aspirin; Z79.02 Long term (current) use of antithrombotics/antiplatelets; Z87.891 Personal history of nicotine dependence; E78.5 Hyperlipidemia, unspecified; Z85.72 Personal history of non-Hodgkin lymphomas
CPT/HCPCS: 70450; 80053; 85025; 85610; 99284

== ENCOUNTER → 2022-10-08 10:19 | Outpatient (BNVA) | payer MEDICARE, OTHER, SELFPAY | PROVIDERS: PCP Nurse Practitioner Family; Visit Provider Nurse Practitioner Family | DX: Z09 Encounter for follow-up examination after completed treatment for conditions other than malignant neoplasm (principal) | CPT/HCPCS: 99213 ==

== ENCOUNTER 2022-10-18 08:16 | Oncology outpatient (recurring) (ONCR) | payer MEDICARE, OTHER, SELFPAY ==
--- NOTE | 2022-10-17 10:24 | PC.NURSE ---
Pt here for Rituxan treatment today. Order from Dr. Bragg's office on 09/27/22. Drea spoke with Dr. Yemi Wing's nurse. Mecca states she will get a current order from Dr. Bragg when he gets in the office and fax over. Explained situation to pt. We will call pt and reschedule when we receive current order.
[2022-10-18] VITALS (7 sets, daily range): BP systolic 122–150; BP diastolic 60–83; PULSE 53–100; RESP 16–18; TEMP 36.4–36.8; O2SAT 96–98
[2022-10-18] MEDS: acetaminophen 325 mg Tablet 650 MG PO (09:11)
[2022-10-18] MEDS: sodium chloride 0.9% 250 ML 75 ML IV (09:13)
[2022-10-18 09:16] LABS: Alanine Aminotransferase 6 U/L (0-41); Albumin Level 3.9 g/dL (3.5-5.2); Alkaline Phosphatase 114 U/L (40-130); Aspartate Amino Transferase 19 U/L (0-40); C Reactive Protein 8.7 mg/L (0.0-4.9); Globulin 2.9 g/dL (1.3-4.6); Total Bilirubin 0.5 mg/dL (0.15-1.2); Total Protein 6.8 g/dL (6.6-8.7)
[2022-10-18] MEDS: diphenhydrAMINE 50 mg/mL SDV 1mL 25 MG IVP (09:18)
[2022-10-18] MEDS: methylPREDNISolone sod succ 125 mg SDV IVP (09:22)
[2022-10-18] MEDS: rituximab 1,000 MG in sodium chloride 0.9% 500 ML 100 MG IV (09:34)
== END 2022-10-18 23:59 | disposition home or self-care (01) ==
PROVIDERS: PCP Nurse Practitioner Family; Visit Provider Internal Medicine Rheumatology
DX: M47.812 Spondylosis without myelopathy or radiculopathy, cervical region (principal); M05.9 Rheumatoid arthritis with rheumatoid factor, unspecified
CPT/HCPCS: 80076; 86140; 96375; 96413; 96415; J1200; J2930; J7040; J7050; J9312

== ENCOUNTER 2022-11-01 08:17 | Oncology outpatient (recurring) (ONCR) | payer MEDICARE, OTHER, SELFPAY ==
[2022-11-01 08:24] VITALS: BP 131/65; PULSE 62; RESP 16; TEMP 36.7; O2SAT 95
[2022-11-01] MEDS: acetaminophen 325 mg Tablet 650 MG PO (09:04)
[2022-11-01] MEDS: sodium chloride 0.9% 250 ML 100 ML IV (09:05)
[2022-11-01] MEDS: methylPREDNISolone sod succ 125 mg SDV IVP (09:06)
[2022-11-01] MEDS: diphenhydrAMINE 50 mg/mL SDV 1mL 25 MG IVP (09:08)
[2022-11-01] MEDS: rituximab-abbs 1,000 MG in sodium chloride 0.9% 500 ML 50 MG IV (09:43)
[2022-11-01 09:45] VITALS: BP 137/60; PULSE 61; RESP 16; O2SAT 95
[2022-11-01 10:15] VITALS: BP 143/72; PULSE 52; RESP 16; O2SAT 96
[2022-11-01 10:45] VITALS: BP 144/77; PULSE 60; RESP 16; O2SAT 99
[2022-11-01 11:15] VITALS: BP 152/70; PULSE 54; RESP 16; O2SAT 95
[2022-11-01 13:15] VITALS: BP 160/81; PULSE 74; RESP 16; TEMP 36.2; O2SAT 98
== END 2022-11-17 23:59 | disposition home or self-care (01) ==
PROVIDERS: PCP Nurse Practitioner Family; Visit Provider Internal Medicine Rheumatology
DX: M05.9 Rheumatoid arthritis with rheumatoid factor, unspecified (principal)
CPT/HCPCS: 96375; 96413; 96415; J1200; J2930; J7040; J7050; Q5115

== ENCOUNTER → 2022-11-26 14:34 | Outpatient (BNVA) | payer MEDICARE, OTHER, SELFPAY | PROVIDERS: PCP Nurse Practitioner Family; Visit Provider Internal Medicine Cardiovascular Disease | DX: I25.10 Atherosclerotic heart disease of native coronary artery without angina pectoris (principal); R94.39 Abnormal result of other cardiovascular function study; E78.5 Hyperlipidemia, unspecified; Z87.891 Personal history of nicotine dependence | CPT/HCPCS: 99214 ==

== ENCOUNTER → 2023-03-12 12:16 | Outpatient (BNVA) | payer MEDICARE, OTHER, SELFPAY | PROVIDERS: PCP Nurse Practitioner Family; Visit Provider Internal Medicine Rheumatology | DX: Z79.899 Other long term (current) drug therapy (principal); M05.9 Rheumatoid arthritis with rheumatoid factor, unspecified; Z71.89 Other specified counseling; R06.02 Shortness of breath | CPT/HCPCS: 36415; 80076; 82565; 85025; 86140; 99214 ==

== ENCOUNTER 2023-03-28 10:30 | Outpatient (CLI) | payer MEDICARE, OTHER, SELFPAY ==
--- NOTE | 2023-03-28 11:00 | CTR_ITS ---
PROCEDURE INFORMATION: Exam: CT Chest Without Contrast; Diagnostic Exam date and time: 03/28/2023 11:12 AM Age: 82 years old Clinical indication: Shortness of breath; Patient HX: HX of lymphoma; Additional info: R06.02 - shortness of breath, hrct TECHNIQUE: Imaging protocol: Diagnostic computed tomography of the chest without contrast. Radiation optimization: All CT scans at this facility use at least one of these dose optimization techniques: automated exposure control; mA and/or kV adjustment per patient size (includes targeted exams where dose is matched to clinical indication); or iterative reconstruction. COMPARISON: [place]dp[place]/w [id number] 09/14/2016 10:33 AM RADIATION DOSE METRICS: Total DLP (mGy-cm): 1008.68 FINDINGS: Lungs: 3 mm nodule left lower lobe. Pleural spaces: Unremarkable. No pneumothorax. No pleural effusion. Heart: Unremarkable. No cardiomegaly. No pericardial effusion. Coronary arteries: Coronary artery calcifications are noted. Lymph nodes: Unremarkable. No enlarged lymph nodes. Vasculature: Unremarkable. No aortic aneurysm. Gallbladder and bile ducts: Multiple gallstones are noted in the gallbladder but the gallbladder does not appear inflamed and demonstrates normal wall thickness. Bones/joints: Unremarkable. No acute fracture. Soft tissues: Unremarkable. CT/CT chest wo con [id number] IMPRESSION: 1. I see no acute abnormality. 2. Cholelithiasis 3. Coronary artery calcifications 4. 3 mm left lung nodule. Annual CT is recommended to ensure stability.
== END 2023-03-28 10:31 | disposition home or self-care (01) ==
LOC: RAD 10:30
PROVIDERS: PCP Nurse Practitioner Family; Visit Provider Internal Medicine Rheumatology
DX: R06.02 Shortness of breath (principal); M05.9 Rheumatoid arthritis with rheumatoid factor, unspecified; J84.9 Interstitial pulmonary disease, unspecified; Z85.72 Personal history of non-Hodgkin lymphomas; K80.20 Calculus of gallbladder without cholecystitis without obstruction; I25.10 Atherosclerotic heart disease of native coronary artery without angina pectoris; R91.1 Solitary pulmonary nodule
CPT/HCPCS: 71250

== ENCOUNTER 2023-04-02 06:38 | Outpatient (CLI) | payer MEDICARE, OTHER, SELFPAY ==
[2023-04-02 07:27] VITALS: PULSE 69; RESP 18; O2SAT 98
[2023-04-02] MEDS: albuterol 2.5 mg/3 mL Neb INHALATION (07:27)
[2023-04-02 07:31] VITALS: PULSE 65
== END 2023-04-02 06:39 | disposition home or self-care (01) ==
LOC: RT 06:38
PROVIDERS: PCP Nurse Practitioner Family; Visit Provider Internal Medicine Rheumatology
DX: R06.02 Shortness of breath (principal); M05.9 Rheumatoid arthritis with rheumatoid factor, unspecified; J84.9 Interstitial pulmonary disease, unspecified; R94.2 Abnormal results of pulmonary function studies
CPT/HCPCS: 94060; 94726; 94729; J7613

== ENCOUNTER 2023-04-18 09:04 | Oncology outpatient (recurring) (ONCR) | payer MEDICARE, OTHER, SELFPAY ==
[2023-04-18] MEDS: acetaminophen 325 mg Tablet 650 MG PO (09:50)
[2023-04-18] MEDS: diphenhydrAMINE 50 mg/mL SDV 1mL 25 MG IVP (09:50)
[2023-04-18 09:51] LABS: Basophils % 0.4 %; Eosinophils # 0.2 10^3/uL (0.0-0.8); Eosinophils % 4.8 %; Hematocrit 39.8 % (37-53); Lymphocytes # 1.3 10^3/uL (0.8-4.8); Lymphocytes % 27.6 %; Mean Corpuscular HGB Conc 32.2 g/dL (30-55); Mean Corpuscular Volume 93.4 fl (82-101); Mean Platelet Volume 9.2 fL (7.4-10.4); Monocytes # 0.5 10^3/uL (0.2-0.9); Monocytes % 11.1 %; Neutrophils # 2.57 10^3/uL (1.8-7.7); Neutrophils % 55.9 %; Nucleated Red Blood Cells % 0 %; Platelet Count 145 10^3/cmm (157-399); Red Blood Count 4.26 10^6/uL (3.85-5.65); Red Cell Distribution Width 12.8 % (12.1-15.1)
[2023-04-18] MEDS: methylPREDNISolone sod succ 125 mg/2 mL INJ IVP (09:51)
[2023-04-18] MEDS: sodium chloride 0.9% 250 ML 75 ML IV (09:51)
[2023-04-18 10:05] VITALS: BP 166/81; PULSE 60; RESP 16; TEMP 36.6; O2SAT 93
[2023-04-18] MEDS: rituximab-abbs 1,000 MG in sodium chloride 0.9% 500 ML 60 MG IV (10:15)
[2023-04-18 10:24] LABS: Alanine Aminotransferase 10 U/L (0-41); Albumin Level 3.8 g/dL (3.5-5.2); Alkaline Phosphatase 104 U/L (40-130); Aspartate Amino Transferase 19 U/L (0-40); Creatinine Clr Calc Pharmacy 46.1113; Globulin 2.5 g/dL (1.3-4.6); Total Bilirubin 0.4 mg/dL (0.15-1.2); Total Protein 6.3 g/dL (6.6-8.7)
[2023-04-18 14:25] VITALS: BP 120/67; PULSE 67; RESP 18; TEMP 36.6; O2SAT 97
== END 2023-04-18 23:59 | disposition home or self-care (01) ==
PROVIDERS: PCP Nurse Practitioner Family; Visit Provider Internal Medicine Rheumatology
DX: M05.9 Rheumatoid arthritis with rheumatoid factor, unspecified (principal); Z79.899 Other long term (current) drug therapy
CPT/HCPCS: 80076; 82565; 85025; 86140; 96375; 96413; 96415; J1200; J2930; J7040; J7050; Q5115

== ENCOUNTER 2023-05-07 08:33 | Oncology outpatient (recurring) (ONCR) | payer MEDICARE, OTHER, SELFPAY ==
[2023-05-07 08:56] VITALS: BP 133/68; PULSE 64; RESP 16; TEMP 36.3; O2SAT 96
[2023-05-07] MEDS: acetaminophen 325 mg Tablet 650 MG PO (09:05)
[2023-05-07] MEDS: sodium chloride 0.9% 250 ML 75 ML IV (09:09)
[2023-05-07] MEDS: diphenhydrAMINE 50 mg/mL SDV 1mL 25 MG IVP (09:16)
[2023-05-07] MEDS: methylPREDNISolone sod succ 125 mg/2 mL INJ IVP (09:22)
[2023-05-07 09:52] VITALS: BP 136/72; PULSE 55; RESP 16; TEMP 36.3; O2SAT 96
[2023-05-07] MEDS: rituximab-abbs 1,000 MG in sodium chloride 0.9% 500 ML 70 MG IV (09:52)
[2023-05-07 10:22] VITALS: BP 130/68; PULSE 56; RESP 16; TEMP 36.4; O2SAT 99
[2023-05-07 10:52] VITALS: BP 122/63; PULSE 54; RESP 16; TEMP 36.4; O2SAT 98
[2023-05-07 11:22] VITALS: BP 133/67; PULSE 54; RESP 16; TEMP 36.2; O2SAT 97
[2023-05-07 13:05] VITALS: BP 141/74; PULSE 70; RESP 16; TEMP 36.3; O2SAT 96
== END 2023-05-19 23:59 | disposition home or self-care (01) ==
LOC: ONCMED 08:34
PROVIDERS: PCP Nurse Practitioner Family; Visit Provider Internal Medicine Rheumatology
DX: M05.9 Rheumatoid arthritis with rheumatoid factor, unspecified (principal)
CPT/HCPCS: 96375; 96413; 96415; J1200; J2930; J7040; J7050; Q5115

== ENCOUNTER 2023-06-04 13:14 | Outpatient (CLI) | payer OTHER, MEDICARE, SELFPAY ==
[2023-06-04 13:30] LABS: Basophils % 0.5 %; Eosinophils # 0.3 10^3/uL (0.0-0.8); Eosinophils % 4.6 %; Hematocrit 40.3 % (37-53); Lymphocytes % 34.6 %; Mean Corpuscular HGB Conc 32.5 g/dL (30-55); Mean Corpuscular Hemoglobin 30.1 pg (27-33); Mean Corpuscular Volume 92.6 fl (82-101); Mean Platelet Volume 9.7 fL (7.4-10.4); Monocytes # 0.6 10^3/uL (0.2-0.9); Monocytes % 10.5 %; Neutrophils # 2.92 10^3/uL (1.8-7.7); Neutrophils % 49.6 %; Nucleated Red Blood Cells % 0 %; Platelet Count 150 10^3/cmm (157-399); Red Blood Count 4.35 10^6/uL (3.85-5.65); Red Cell Distribution Width 13.2 % (12.1-15.1); White Blood Count 5.89 10^3/uL (3.29-11.43)
[2023-06-04 13:57] LABS: Alanine Aminotransferase 9 U/L (0-41); Albumin Level 3.9 g/dL (3.5-5.2); Alkaline Phosphatase 116 U/L (40-130); Aspartate Amino Transferase 18 U/L (0-40); Globulin 2.8 g/dL (1.3-4.6); Total Bilirubin 0.3 mg/dL (0.15-1.2); Total Protein 6.7 g/dL (6.6-8.7)
== END 2023-06-04 13:15 | disposition home or self-care (01) ==
LOC: LAB 13:15
PROVIDERS: PCP Nurse Practitioner Family; Visit Provider Internal Medicine Rheumatology
DX: Z79.899 Other long term (current) drug therapy (principal); M05.9 Rheumatoid arthritis with rheumatoid factor, unspecified
CPT/HCPCS: 36415; 80076; 82565; 85025; 86140

== ENCOUNTER → 2023-08-27 12:43 | Outpatient (BNVA) | payer MEDICARE, OTHER, SELFPAY | PROVIDERS: PCP Nurse Practitioner Family; Visit Provider Internal Medicine Rheumatology | DX: M05.9 Rheumatoid arthritis with rheumatoid factor, unspecified (principal); Z79.899 Other long term (current) drug therapy; Z71.85 Encounter for immunization safety counseling; R06.02 Shortness of breath; M16.0 Bilateral primary osteoarthritis of hip; M43.22 Fusion of spine, cervical region; Z85.72 Personal history of non-Hodgkin lymphomas; Z87.891 Personal history of nicotine dependence | CPT/HCPCS: 99214 ==

== ENCOUNTER 2023-09-02 08:57 | Outpatient (CLI) | payer MEDICARE, OTHER, SELFPAY ==
[2023-09-02 09:18] LABS: Basophils % 0.4 %; Eosinophils # 0.2 10^3/uL (0.0-0.8); Eosinophils % 4.6 %; Hematocrit 39.1 % (37-53); Lymphocytes # 1.2 10^3/uL (0.8-4.8); Mean Corpuscular Hemoglobin 31.2 pg (27-33); Mean Corpuscular Volume 94.7 fl (82-101); Mean Platelet Volume 9.5 fL (7.4-10.4); Monocytes # 0.5 10^3/uL (0.2-0.9); Monocytes % 9.5 %; Neutrophils # 3.09 10^3/uL (1.8-7.7); Neutrophils % 61.3 %; Nucleated Red Blood Cells % 0 %; Platelet Count 126 10^3/cmm (157-399); Red Blood Count 4.13 10^6/uL (3.85-5.65); Red Cell Distribution Width 13.1 % (12.1-15.1); White Blood Count 5.04 10^3/uL (3.29-11.43)
[2023-09-02 09:38] LABS: Alanine Aminotransferase 11 U/L (0-41); Albumin Level 3.7 g/dL (3.5-5.2); Alkaline Phosphatase 100 U/L (40-130); Aspartate Amino Transferase 15 U/L (0-40); Globulin 2.7 g/dL (1.3-4.6); Total Bilirubin 0.3 mg/dL (0.15-1.2); Total Protein 6.4 g/dL (6.6-8.7)
[2023-09-02 11:20] LABS: Erythrocyte Sedimentation Rate 5 mm/hr (0-10)
== END 2023-09-02 08:58 | disposition home or self-care (01) ==
LOC: LAB 09:00
PROVIDERS: PCP Nurse Practitioner Family; Visit Provider Internal Medicine Rheumatology
DX: Z79.899 Other long term (current) drug therapy (principal); M05.9 Rheumatoid arthritis with rheumatoid factor, unspecified
CPT/HCPCS: 36415; 80076; 82565; 85025; 85651; 86140

== ENCOUNTER 2023-10-28 11:38 | Oncology outpatient (recurring) (ONCR) | payer MEDICARE, OTHER, SELFPAY ==
[2023-10-28 12:03] VITALS: BP 134/72; PULSE 63; RESP 16; TEMP 36.4; O2SAT 98
[2023-10-28 12:11] LABS: Basophils % 0.5 %; Eosinophils # 0.3 10^3/uL (0.0-0.8); Eosinophils % 5.2 %; Hematocrit 40.7 % (37-53); Lymphocytes # 1.5 10^3/uL (0.8-4.8); Lymphocytes % 23.8 %; Mean Corpuscular HGB Conc 32.9 g/dL (30-55); Mean Corpuscular Hemoglobin 30.7 pg (27-33); Mean Corpuscular Volume 93.3 fl (82-101); Mean Platelet Volume 9.5 fL (7.4-10.4); Monocytes # 0.6 10^3/uL (0.2-0.9); Monocytes % 9.8 %; Neutrophils # 3.71 10^3/uL (1.8-7.7); Neutrophils % 60.5 %; Nucleated Red Blood Cells % 0 %; Platelet Count 157 10^3/cmm (157-399); Red Blood Count 4.36 10^6/uL (3.85-5.65); Red Cell Distribution Width 12.6 % (12.1-15.1); White Blood Count 6.13 10^3/uL (3.29-11.43)
[2023-10-28] MEDS: acetaminophen 325 mg Tablet 650 MG PO (12:35)
[2023-10-28] MEDS: sodium chloride 0.9% 250 ML 75 ML IV (12:37)
[2023-10-28] MEDS: methylPREDNISolone sod succ 125 mg/2 mL INJ IVP (12:42)
[2023-10-28] MEDS: diphenhydrAMINE 50 mg/mL SDV 1mL 25 MG IVP (12:48)
[2023-10-28 12:50] LABS: Erythrocyte Sedimentation Rate 3 mm/hr (0-10)
[2023-10-28] MEDS: rituximab-abbs 1,000 MG in sodium chloride 0.9% 500 ML 200 MG IV (13:02)
[2023-10-28 13:05] VITALS: BP 124/70; PULSE 60; RESP 18; TEMP 36.4; O2SAT 96
[2023-10-28 13:35] LABS: Alanine Aminotransferase 9 U/L (0-41); Albumin Level 3.9 g/dL (3.5-5.2); Alkaline Phosphatase 111 U/L (40-130); Aspartate Amino Transferase 18 U/L (0-40); C Reactive Protein 8.2 mg/L (0.0-4.9); Creatinine Clr Calc Pharmacy 43.0165; Globulin 2.6 g/dL (1.3-4.6); Total Bilirubin 0.4 mg/dL (0.15-1.2); Total Protein 6.5 g/dL (6.6-8.7)
[2023-10-28 13:40] VITALS: BP 129/67; PULSE 57; RESP 18; TEMP 36.3; O2SAT 96
[2023-10-28 14:15] VITALS: BP 132/71; PULSE 55; RESP 18; TEMP 36.6; O2SAT 96
[2023-10-28 14:45] VITALS: BP 132/73; PULSE 77; RESP 18; TEMP 36.5; O2SAT 95
[2023-10-28 16:50] VITALS: BP 174/75; PULSE 81; RESP 16; TEMP 36.7; O2SAT 96
== END 2023-10-28 23:59 | disposition home or self-care (01) ==
PROVIDERS: PCP Nurse Practitioner Family; Visit Provider Internal Medicine Rheumatology
DX: M05.9 Rheumatoid arthritis with rheumatoid factor, unspecified (principal); Z79.899 Other long term (current) drug therapy
CPT/HCPCS: 80076; 82565; 85025; 85651; 86140; 96375; 96413; 96415; J1200; J2919; J7040; J7050; Q5115

== ENCOUNTER 2023-11-13 07:49 | Oncology outpatient (recurring) (ONCR) | payer MEDICARE, OTHER, SELFPAY ==
[2023-11-13 08:15] VITALS: BP 119/63; PULSE 62; RESP 16; TEMP 36.5; O2SAT 99
[2023-11-13] MEDS: sodium chloride 0.9% 250 ML 75 ML IV (08:36)
[2023-11-13] MEDS: acetaminophen 325 mg Tablet 650 MG PO (08:43)
[2023-11-13] MEDS: diphenhydrAMINE 50 mg/mL SDV 1mL 25 MG IVP (08:43)
[2023-11-13] MEDS: methylPREDNISolone sod succ 125 mg/2 mL INJ IVP (08:44)
[2023-11-13 09:15] VITALS: BP 136/63; PULSE 57; RESP 16; TEMP 36.3; O2SAT 97
[2023-11-13] MEDS: rituximab-abbs 1,000 MG in sodium chloride 0.9% 500 ML 70 MG IV (09:15)
[2023-11-13 09:45] VITALS: BP 123/65; PULSE 52; RESP 16; TEMP 36.4; O2SAT 99
[2023-11-13 10:15] VITALS: BP 140/73; PULSE 53; RESP 16; TEMP 36.1; O2SAT 94
[2023-11-13 10:45] VITALS: BP 133/68; PULSE 57; RESP 16; TEMP 36.1; O2SAT 99
[2023-11-13 12:16] VITALS: BP 145/83; PULSE 60; RESP 16; TEMP 36.1; O2SAT 59
== END 2023-11-18 23:59 | disposition home or self-care (01) ==
PROVIDERS: PCP Nurse Practitioner Family; Visit Provider Internal Medicine Rheumatology
DX: M05.9 Rheumatoid arthritis with rheumatoid factor, unspecified (principal); Z79.899 Other long term (current) drug therapy
CPT/HCPCS: 96375; 96413; 96415; J1200; J2919; J7040; J7050; Q5115

== ENCOUNTER → 2023-11-19 12:49 | Outpatient (BNVA) | payer MEDICARE, OTHER, SELFPAY | PROVIDERS: PCP Nurse Practitioner Family; Visit Provider Internal Medicine Cardiovascular Disease | DX: I25.10 Atherosclerotic heart disease of native coronary artery without angina pectoris (principal); I10 Essential (primary) hypertension; E78.5 Hyperlipidemia, unspecified; Z87.891 Personal history of nicotine dependence | CPT/HCPCS: 99214 ==

== ENCOUNTER → 2024-02-25 14:15 | Outpatient (BNVA) | payer OTHER, MEDICARE, SELFPAY | PROVIDERS: PCP Nurse Practitioner Family; Visit Provider Internal Medicine Rheumatology | DX: Z79.899 Other long term (current) drug therapy (principal); M05.9 Rheumatoid arthritis with rheumatoid factor, unspecified | CPT/HCPCS: 36415; 80076; 82565; 85025; 85651; 86140 ==